=== PATIENT | female | born 1950 | race Two or more races ===

== ENCOUNTER 2017-03-18 12:37 | Inpatient (IN) | payer MEDICARE, OTHER ==
[~2017-03-18] VITALS: Ht 160 cm; Wt 52.2 kg
[2017-03-18 20:00] VITALS: BP 91/45
[2017-03-18] MEDS ORDERED: PROCRIT3000 UNIT/ SUBQ (20:23)
[2017-03-18] MEDS ORDERED: REMERON15 M1 ORAL (20:26)
[2017-03-18] MEDS ORDERED: SEROQUEL50 MG ORAL (20:28)
[2017-03-18] MEDS ORDERED: ACETAMINOPHEN325 M1 ORAL (20:34)
[2017-03-18] MEDS ORDERED: TIZANIDINE HCL4 MG ORAL (20:39)
[2017-03-18] MEDS ORDERED: AMBIEN5 MG ORAL (20:39)
[2017-03-18] MEDS ORDERED: ASPIR 8181 MG ORAL (20:40)
[2017-03-18] MEDS ORDERED: ATIVAN0.5 MG ORAL (20:42)
[2017-03-18] MEDS ORDERED: DOCUSATE SODIU100 MG ORAL (20:43)
[2017-03-18] MEDS ORDERED: BISACODYL10 M1 RC (20:45)
[2017-03-18] MEDS ORDERED: FERROUSUL325 M1 PO (20:47)
[2017-03-18] MEDS ORDERED: FLEET ENEMA133 M1 RC (20:50)
[2017-03-18] MEDS ORDERED: LIPITOR80 MG ORAL (20:51)
[2017-03-18] MEDS ORDERED: LYRICA25 MG ORAL (20:52)
[2017-03-18] MEDS ORDERED: MOM30 ML ORAL (20:55)
[2017-03-18] MEDS ORDERED: NUEDEXTA 20-101 EAC1 PO (20:58)
[2017-03-18] MEDS ORDERED: MELATONIN1 M2 PO (21:22)
[2017-03-18] MEDS ORDERED: HUMALOG100 UNIT/4 SUBQ (21:22)
[2017-03-18] MEDS ORDERED: LANTUS SOL100 UNIT/1 SUBQ (21:22)
[2017-03-18] MEDS ORDERED: Milk of Magnesia 30ml Ud ORAL PRN (21:30)
[2017-03-18] MEDS ORDERED: Zolpidem 5mg tab ORAL PRN (21:30)
[2017-03-18] MEDS ORDERED: Cefepime HCl 1 GM in D5W 55 ML IVPB SCH (21:30)
[2017-03-18] MEDS ORDERED: Cefepime 1gm/D5W 55ml IVPB ONE ×2 (23:00)
--- NOTE | 2017-03-18 23:09 | History and Physical Report ---
DATE OF ADMISSION: 03/18/2017 CHIEF COMPLAINT: Acute renal failure, sepsis, and UTI. HISTORY OF PRESENT ILLNESS: This is a 66-year-old female. She has a history of stroke with hemiparesis, hypertension, and history of dementia, who presented from the halfway facility with complaints of acute renal failure, sepsis, and urinary tract infection. The patient recently developed fevers. She had urinalysis that was positive for a urinary tract infection. She was started on antibiotic therapy. Laboratory tests done showed significant worsening of her renal function with metabolic acidosis. worsening renal failure, the sepsis, and urinary tract infection, she is now admitted for further evaluation and care. PAST MEDICAL HISTORY: As above. PAST SURGICAL HISTORY: None. CURRENT MEDICATIONS: Reconciled and reviewed. ALLERGIES: Include penicillin. FAMILY HISTORY: Noncontributory. SOCIAL HISTORY: Negative for tobacco, ethanol, or drugs. REVIEW OF SYSTEMS: General: Positive fevers. No chills. HEENT: No headaches or visual changes. Cardiopulmonary: No chest pain or shortness of breath. Gastrointestinal: No nausea or vomiting. Genitourinary: Positive urgency and frequency. Positive hematuria. Musculoskeletal: No joint pain or swelling. Neurologic: No evidence of seizures. PHYSICAL EXAMINATION: VITAL SIGNS: Temperature 99 degrees, blood pressure 140/76, pulse of 80, and respirations 20. GENERAL: The patient is a well-developed female, in no apparent distress. She is awake and alert. HEART: Regular rate and rhythm. NECK: Supple. LUNGS: Clear. ABDOMEN: Soft, nontender, and nondistended. EXTREMITIES: Without clubbing, cyanosis, or edema. LABORATORY DATA: Laboratory showed a creatinine of 3.8 with a bicarb of 12. UA showed greater than 50 to 100 WBCs. ASSESSMENT: This is an elderly female with history of stroke, hypertension, sepsis, urinary tract infection, and acute renal failure. PLAN: 1. IV hydration with bicarbonate. 2. IV antibiotics for urinary tract infection and sepsis. 3. Followup cultures. 4. Check a renal ultrasound. 5. Continue outpatient cardiac regimen. 6. Cardiology and Infectious Disease consultation will be obtained. Francis Jones M.D. DR: AMADA JOB#: [id number] CC:
[2017-03-19] VITALS: BP 121/63
[2017-03-19] MEDS: Sodium Bicarbonate 50 ML in 1/2 NS 1000ml 1,000 ML IV SCH ×3 (00:20→18:58)
[2017-03-19 04:00] VITALS: BP 119/64
[2017-03-19] MEDS: LORazepam 0.5mg tab ORAL SCH ×2 (05:11)
[2017-03-19] MEDS: NovoLOG Insulin Flexpen SUBQ SCH ×4 (06:31→20:13)
[2017-03-19 08:00] VITALS: BP 94/63
[2017-03-19] MEDS: Docusate 100mg cap ORAL SCH ×2 (09:00→17:00)
[2017-03-19] MEDS: Nuedexta Capsule 20/10mg ORAL SCH ×2 (09:03→20:11)
[2017-03-19] MEDS: Lyrica 25mg cap ORAL SCH ×3 (09:03→17:03)
[2017-03-19] MEDS: Aspirin EC 81mg tab ORAL SCH (09:03)
[2017-03-19 09:59] LABS: BASOPHILS % (AUTO) 1.1 % (0.0-2.0); EOSINOPHILS % (AUTO) 2.6 % (0.0-3.0); LYMPHOCYTES % (AUTO) 27.3 % (20.0-45.0); MEAN CORPUSCULAR HEMOGLOBIN 21.8 PG (27.0-31.0); MEAN CORPUSCULAR VOLUME 73 FL (80-99); MEAN PLATELET VOLUME 6.7 FL (6.5-10.1); MONOCYTES % (AUTO) 14.1 % (1.0-10.0); NEUTROPHILS % (AUTO) 54.9 % (45.0-75.0); PLATELET COUNT 343 K/UL (150-450); RED BLOOD COUNT 5.55 M/UL (4.20-5.40); RED CELL DISTRIBUTION WIDTH 22.1 % (11.6-14.8); WHITE BLOOD COUNT 8.8 K/UL (4.8-10.8)
[2017-03-19 10:18] LABS: ALBUMIN/GLOBULIN RATIO 0.7 (1.0-2.7); CREATININE 2.8 mg/dL (0.5-0.9); GLOMERULAR FILTRATION RATE 16.9 mL/min (>60); POTASSIUM 4.6 mEQ/L (3.4-4.9); TOTAL PROTEIN 7.6 g/dL (6.6-8.7)
[2017-03-19 12:00] VITALS: BP 130/63
[2017-03-19] MEDS: LORazepam 0.5mg tab ORAL PRN ×2 (12:30→19:08)
--- NOTE | 2017-03-19 14:06 | Diagnostic Imaging Report ---
Indication:Elevated Bun and Creatinine. Technique: Grayscale and duplex Doppler imaging of the kidneys performed. Comparison: None Findings: There is mild bilateral hydronephrosis slightly worse on the right. There is thickening of the urinary bladder wall. Please correlate clinically for cystitis. Both kidneys measure between 10 and 11 cm in length. IVC is unremarkable. Impression: Bilateral hydronephrosis. Thickening of the urinary bladder wall. Cystitis suspected.
--- NOTE | 2017-03-19 14:40 | Wound Care Consultation ---
Wound Assessment Wound Assessment #1: Wound Present on Admission: Yes New Wound: No Status Change of Wound: No Wound Location Body Site Modif: right Wound Location Body Site: sacral Wound Type: pressure ulcer Michelle Test: Does not Michelle Pressure Ulcer Stage: III Wound Thickness: Full Thickness Wound Length: 2.0 Wound Width: 1.5 Wound Depth: utd Percent of Wound [place]/Red: 100 Wound Drainage Description: Serosanguineous Wound Drainage Amount: Scant Wound Drainage Odor: None/Absent Tissue Surrounding Wound: with extensive L 6.5cm, W 10.5cm DTI purple in color Wound General Appearance: Reddened Wound Assessment #2: Wound Number: #2 Wound Present on Admission: Yes New Wound: No Status Change of Wound: No Wound Location Body Site Modif: left Wound Location Body Site: buttocks Wound Type: pressure ulcer Michelle Test: Does not Michelle Pressure Ulcer Stage: III Wound Thickness: Full Thickness Wound Length: 5.5 Wound Width: 4.0 Wound Depth: 0.3 Percent of Wound [place]/Red: 100 Wound Drainage Description: Serosanguineous Wound Drainage Amount: Scant Wound Drainage Odor: None/Absent Tissue Surrounding Wound: Macerated Wound General Appearance: Reddened Wound Assessment #3: Wound Number: #3 Wound Present on Admission: Yes New Wound: No Status Change of Wound: No Wound Location Body Site Modif: right Wound Location Body Site: buttocks Wound Type: pressure ulcer Michelle Test: Does not Michelle Pressure Ulcer Stage: deep tissue injury Wound Thickness: Full Thickness Wound Length: 4.0 Wound Width: 4.5 Wound Depth: utd Percent of Wound Purple/Maroon: 100 Wound Drainage Amount: None Wound Drainage Odor: None/Absent Tissue Surrounding Wound: Erythemic Wound General Appearance: Reddened Wound Assessment #4: Wound Number: #4 Wound Present on Admission: Yes New Wound: No Status Change of Wound: No Wound Location Body Site Modif: mid Wound Location Body Site: sacral Wound Type: pressure ulcer Michelle Test: Does not Michelle Pressure Ulcer Stage: deep tissue injury Wound Thickness: Full Thickness Wound Length: 4.0 Wound Width: 4.5 Wound Depth: utd Percent of Wound Purple/Maroon: 100 Wound Drainage Amount: None Wound Drainage Odor: None/Absent Tissue Surrounding Wound: Erythemic Wound General Appearance: Reddened Wound Assessment #5: Wound Number: #5 Wound Present on Admission: Yes New Wound: No Status Change of Wound: No Wound Location Body Site: perineal area Wound Type: chemical burn Michelle Test: Does not Michelle Percent of Wound [place]/Red: 100 Wound Drainage Amount: None Wound Drainage Odor: None/Absent Tissue Surrounding Wound: Erythemic Wound General Appearance: Reddened Wound Comment #1 Right sacral stage III pressure ulcer #2 Mid sacral DTI pressure ulcer #3 Left buttock stage III pressure ulcer #4 Right buttock DTI pressure ulcer #5 Chemical burn to perineal area Recommendation -Mid Sacral and left buttock pressure ulcers Cleanse with saline, pat dry, apply Triad cream to wound bed, apply skin barrier film to periwound with extensive DTI, cover with bordered gauze daily and PRN soiled/ dislodged -Local wound care per protocol for DTI on mid sacral area -Keep clean and dry -Turn and reposition -Optimize nutrition -Low air loss overlay mattress -Offload both heels -Heel protector on both heels -Assess and f/u accordingly for any changes MINNIE MILLER RN March 19, 2017 14:40
[2017-03-19 16:00] VITALS: BP 127/70
[2017-03-19 20:00] VITALS: BP 133/69
[2017-03-19] MEDS: Atorvastatin 80mg tab ORAL SCH (20:11)
[2017-03-19] MEDS: Cefepime 500mg in D5W 55ml IVPB SCH (23:18)
[2017-03-20] VITALS: BP 147/72
[2017-03-20] MEDS: LORazepam 0.5mg tab ORAL PRN ×3 (02:20→17:28)
[2017-03-20 04:00] VITALS: BP 125/54
[2017-03-20] MEDS: NovoLOG Insulin Flexpen SUBQ SCH ×4 (06:51→22:58)
[2017-03-20] MEDS: Sodium Bicarbonate 50 ML in 1/2 NS 1000ml 1,000 ML IV SCH ×2 (06:51→16:52)
[2017-03-20 07:54] LABS: ALANINE AMINOTRANSFERASE 24 U/L (3-33); ALBUMIN/GLOBULIN RATIO 0.5 (1.0-2.7); ANION GAP 17 (5-15); ASPARTATE AMINO TRANSFERASE 43 U/L (5-40); CALCIUM 8.5 mg/dL (8.6-10.2); CARBON DIOXIDE 24 mEQ/L (20-30); CHLORIDE 97 mEQ/L (98-107); CREATININE 1.6 mg/dL (0.5-0.9); GLOMERULAR FILTRATION RATE 32.3 mL/min (>60); HEMOLYSIS 6; POTASSIUM 3.6 mEQ/L (3.4-4.9); SODIUM 138 mEQ/L (135-145); TOTAL PROTEIN 8.3 g/dL (6.6-8.7)
[2017-03-20 07:55] VITALS: BP 144/72
--- NOTE | 2017-03-20 08:23 | General Progress Note ---
Assessment/Plan Problem List: (1) Sepsis ICD Codes: A41.9 - Sepsis, unspecified organism SNOMED: 75556175 (2) ARF (acute renal failure) ICD Codes: N17.9 - Acute kidney failure, unspecified SNOMED: 44627040 Status: stable, progressing Assessment/Plan ivf iv abx will follow cultures from [facility] monitor renal function Subjective Date patient seen: March 19, 2017 ROS Limited/Unobtainable: No Constitutional: Reports: malaise, weakness HEENT: Reports: no symptoms Cardiovascular: Reports: no symptoms Respiratory: Reports: cough Gastrointestinal/Abdominal: Reports: no symptoms Genitourinary: Reports: burning, frequency, hematuria Neurologic/Psychiatric: Reports: pre-existing deficit Endocrine: Reports: no symptoms Hematologic/Lymphatic: Reports: no symptoms Allergies: Coded Allergies: PENICILLINS (Verified Allergy, Unknown, 03/18/17) All Systems: reviewed and negative except above Subjective no events. w/o complaints. no cp/sob. no fever or chills. on ivf. on iv abx. Objective Last 24 Hour Vital Signs Date Time Temp Pulse Resp B/P Pulse Ox O2 Delivery O2 Flow Rate FiO2 03/20/17 07:55 97.0 109 20 144/72 99 Room Air 03/20/17 04:00 97.0 95 19 125/54 100 Room Air 03/20/17 00:00 96.1 114 18 147/72 99 Room Air 03/19/17 21:14 97.3 03/19/17 20:00 96.6 82 17 133/69 97 Room Air 03/19/17 16:00 97.3 68 20 127/70 97 Room Air 03/19/17 12:00 97.2 83 20 130/63 100 Room Air Intake and Output 03/19/17 03/20/17 19:00 07:00 Intake Total 200 ml 1300 ml Balance 200 ml 1300 ml Intake Oral 200 ml 120 ml IV Total 1180 ml # Voids 4 2 # Bowel Movements 1 Laboratory Tests 03/19/17 09:15: White Blood Count 8.8, Red Blood Count 5.55H, Hemoglobin 12.1, Hematocrit 40.4, Mean Corpuscular Volume 73L, Mean Corpuscular Hemoglobin 21.8L, Mean Corpuscular Hemoglobin Concent 30.0L, Red Cell Distribution Width 22.1H, Platelet Count 343, Mean Platelet Volume 6.7, Neutrophils (%) (Auto) 54.9, Lymphocytes (%) (Auto) 27.3, Monocytes (%) (Auto) 14.1H, Eosinophils (%) (Auto) 2.6, Basophils (%) (Auto) 1.1, Sodium Level 131L, Potassium Level 4.6, Chloride Level 92L, Carbon Dioxide Level 18L, Anion Gap 21H, Blood Urea Nitrogen 71H, Creatinine 2.8H, Estimat Glomerular Filtration Rate 16.9, Glucose Level 210H, Calcium Level 8.0L, Total Bilirubin 0.2, Aspartate Amino Transf (AST/SGOT) 40, Alanine Aminotransferase (ALT/SGPT) 19, Alkaline Phosphatase 93, Total Protein 7.6, Albumin 3.2L, Globulin 4.4, Albumin/Globulin Ratio 0.7L 03/20/17 05:15: Sodium Level 138, Potassium Level 3.6, Chloride Level 97L, Carbon Dioxide Level 24, Anion Gap 17H, Blood Urea Nitrogen 55H, Creatinine 1.6H, Estimat Glomerular Filtration Rate 32.3, Glucose Level 268H, Calcium Level 8.5L, Total Bilirubin < 0.2, Aspartate Amino Transf (AST/SGOT) 43H, Alanine Aminotransferase (ALT/SGPT) 24, Alkaline Phosphatase 124H, Total Protein 8.3, Albumin 3.0L, Globulin 5.3, Albumin/Globulin Ratio 0.5L Height (Feet): 5 Height (Inches): 3.00 Weight (Pounds): 115 General Appearance: WD/WN, alert Neck: supple Cardiovascular: regular rhythm Respiratory/Chest: lungs clear, normal breath sounds, no respiratory distress Abdomen: normal bowel sounds, non tender, soft, no organomegaly Neurologic: alert, oriented x 3, responsive, motor weakness KORTNEY DODGE March 20, 2017 08:22
--- NOTE | 2017-03-20 08:25 | General Progress Note ---
Assessment/Plan Problem List: (1) Sepsis ICD Codes: A41.9 - Sepsis, unspecified organism SNOMED: 78928230 (2) ARF (acute renal failure) ICD Codes: N17.9 - Acute kidney failure, unspecified SNOMED: 10929367 Status: stable, progressing Assessment/Plan ivf iv abx will follow cultures from [facility] renal luann with mild hydro. ?significance. monitor renal function- currently improving anticipate dc tomorrow if labs ok Subjective ROS Limited/Unobtainable: No Constitutional: Reports: malaise, weakness HEENT: Reports: no symptoms Cardiovascular: Reports: no symptoms Respiratory: Reports: no symptoms Gastrointestinal/Abdominal: Reports: no symptoms Genitourinary: Reports: burning, frequency, hematuria Neurologic/Psychiatric: Reports: pre-existing deficit Endocrine: Reports: no symptoms Hematologic/Lymphatic: Reports: no symptoms Allergies: Coded Allergies: PENICILLINS (Verified Allergy, Unknown, 03/18/17) All Systems: reviewed and negative except above Subjective no events. w/o complaints. no cp/sob. no fever or chills. on ivf. on iv abx. renal fxn improving. Objective Last 24 Hour Vital Signs Date Time Temp Pulse Resp B/P Pulse Ox O2 Delivery O2 Flow Rate FiO2 03/20/17 07:55 97.0 109 20 144/72 99 Room Air 03/20/17 04:00 97.0 95 19 125/54 100 Room Air 03/20/17 00:00 96.1 114 18 147/72 99 Room Air 03/19/17 21:14 97.3 03/19/17 20:00 96.6 82 17 133/69 97 Room Air 03/19/17 16:00 97.3 68 20 127/70 97 Room Air 03/19/17 12:00 97.2 83 20 130/63 100 Room Air Intake and Output 03/19/17 03/20/17 19:00 07:00 Intake Total 200 ml 1300 ml Balance 200 ml 1300 ml Intake Oral 200 ml 120 ml IV Total 1180 ml # Voids 4 2 # Bowel Movements 1 Laboratory Tests 03/19/17 09:15: White Blood Count 8.8, Red Blood Count 5.55H, Hemoglobin 12.1, Hematocrit 40.4, Mean Corpuscular Volume 73L, Mean Corpuscular Hemoglobin 21.8L, Mean Corpuscular Hemoglobin Concent 30.0L, Red Cell Distribution Width 22.1H, Platelet Count 343, Mean Platelet Volume 6.7, Neutrophils (%) (Auto) 54.9, Lymphocytes (%) (Auto) 27.3, Monocytes (%) (Auto) 14.1H, Eosinophils (%) (Auto) 2.6, Basophils (%) (Auto) 1.1, Sodium Level 131L, Potassium Level 4.6, Chloride Level 92L, Carbon Dioxide Level 18L, Anion Gap 21H, Blood Urea Nitrogen 71H, Creatinine 2.8H, Estimat Glomerular Filtration Rate 16.9, Glucose Level 210H, Calcium Level 8.0L, Total Bilirubin 0.2, Aspartate Amino Transf (AST/SGOT) 40, Alanine Aminotransferase (ALT/SGPT) 19, Alkaline Phosphatase 93, Total Protein 7.6, Albumin 3.2L, Globulin 4.4, Albumin/Globulin Ratio 0.7L 03/20/17 05:15: Sodium Level 138, Potassium Level 3.6, Chloride Level 97L, Carbon Dioxide Level 24, Anion Gap 17H, Blood Urea Nitrogen 55H, Creatinine 1.6H, Estimat Glomerular Filtration Rate 32.3, Glucose Level 268H, Calcium Level 8.5L, Total Bilirubin < 0.2, Aspartate Amino Transf (AST/SGOT) 43H, Alanine Aminotransferase (ALT/SGPT) 24, Alkaline Phosphatase 124H, Total Protein 8.3, Albumin 3.0L, Globulin 5.3, Albumin/Globulin Ratio 0.5L Height (Feet): 5 Height (Inches): 3.00 Weight (Pounds): 115 General Appearance: WD/WN, alert Neck: supple Cardiovascular: regular rhythm Respiratory/Chest: lungs clear, normal breath sounds, no respiratory distress Abdomen: normal bowel sounds, non tender, soft, no organomegaly Edema: no edema noted Arm (L), no edema noted Arm (R), no edema noted Leg (L), no edema noted Leg (R), no edema noted Pedal (L), no edema noted Pedal (R), no edema noted 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
[2017-03-20] MEDS: Nuedexta Capsule 20/10mg ORAL SCH ×3 (09:17→22:57)
[2017-03-20] MEDS: Docusate 100mg cap ORAL SCH ×2 (09:17→17:28)
[2017-03-20] MEDS: Aspirin EC 81mg tab ORAL SCH (09:17)
[2017-03-20] MEDS: Lyrica 25mg cap ORAL SCH ×3 (09:22→17:29)
[2017-03-20 11:20] VITALS: BP 141/78
[2017-03-20 16:17] VITALS: BP 104/56
[2017-03-20] MEDS: Norco 10mg/325mg tab ORAL PRN (17:28)
--- NOTE | 2017-03-20 17:56 | Physician Query ---
PLEASE COMPLETE DOCUMENT BEFORE SIGNING Dear Dr. Schumacher Date: _03/20/2017 [facility] Name: _Tavia Shetty M.D._ [facility] Phone No.: _[phone] _ Exercise your independent professional judgment when responding to the query. Questions asked do not imply a particular answer is desired or expected. We greatly appreciate your clarification on this issue. CLINICAL DOCUMENTATION STATES: "Right sacral stage III pressure ulcer" & "Left buttock stage III pressure ulcer "Verdana 4Br as per Wound Consultation Note by MINNIE MILLER RN Please respond to the following question: Is there a diagnosis specific to these symptoms or values? If so please state below. PHYSICIAN RESPONSE: Condition Present on Admission: [x] Yes [] No []Clinically Undeterminable Please also document in your Progress Notes and/or Discharge Summary and indicate if the condition was present on admission. Francis Jones M.D. Date & Time [facility]
[2017-03-20] MEDS: Atorvastatin 80mg tab ORAL SCH ×2 (21:00→22:55)
[2017-03-21] VITALS: BP 148/76
[2017-03-21] MEDS: Cefepime 500mg in D5W 55ml IVPB SCH (00:16)
[2017-03-21] MEDS: Sodium Bicarbonate 50 ML in 1/2 NS 1000ml 1,000 ML IV SCH ×2 (03:00→13:38)
[2017-03-21 04:00] VITALS: BP 139/72
[2017-03-21] MEDS: Norco 10mg/325mg tab ORAL PRN ×2 (04:09→14:15)
[2017-03-21] MEDS: NovoLOG Insulin Flexpen SUBQ SCH ×2 (06:28→13:40)
[2017-03-21 08:15] VITALS: BP 129/63
[2017-03-21] MEDS: Docusate 100mg cap ORAL SCH (09:00)
[2017-03-21] MEDS: Nuedexta Capsule 20/10mg ORAL SCH (09:00)
[2017-03-21] MEDS: Lyrica 25mg cap ORAL SCH ×2 (09:00→13:00)
[2017-03-21 09:12] LABS: ALANINE AMINOTRANSFERASE 15 U/L (3-33); ALBUMIN/GLOBULIN RATIO 0.5 (1.0-2.7); ANION GAP 14 (5-15); ASPARTATE AMINO TRANSFERASE 21 U/L (5-40); CALCIUM 8.1 mg/dL (8.6-10.2); CARBON DIOXIDE 27 mEQ/L (20-30); CHLORIDE 100 mEQ/L (98-107); CREATININE 1.2 mg/dL (0.5-0.9); HEMOLYSIS 0; POTASSIUM 3.9 mEQ/L (3.4-4.9); SODIUM 141 mEQ/L (135-145); TOTAL PROTEIN 7.1 g/dL (6.6-8.7)
[2017-03-21] MEDS: Aspirin EC 81mg tab ORAL SCH (09:23)
[2017-03-21 11:54] VITALS: BP 118/73
[2017-03-21] MEDS: LORazepam 0.5mg tab ORAL PRN (14:14)
[2017-03-21 15:56] VITALS: BP 109/57
[2017-03-21] MEDS ORDERED: Tubing IV Secondary IV ONE (18:10)
--- NOTE | 2017-03-22 03:39 | Discharge Summary ---
DATE OF ADMISSION: 03/18/2017 DATE OF DISCHARGE: 03/21/2017 ADMISSION DIAGNOSES: 1. Sepsis. 2. Acute renal failure. 3. Encephalopathy. 4. Stroke. 5. Diabetes. 6. Hypertension. DISCHARGE DIAGNOSES: 1. Sepsis. 2. Acute renal failure. 3. Encephalopathy. 4. Stroke. 5. Diabetes. 6. Hypertension. HOSPITAL COURSE: The patient is a pleasant female with complaints of sepsis secondary to urinary tract infection. She was noted to be in acute renal failure with creatinine of 3.8. The patient was hydrated aggressively. She had a renal ultrasound showed mild hydronephrosis. Schroeder catheter was recommended, but the patient refused. renal function continued to improve with IV fluids. The patient's sepsis also improved with IV antibiotics. On discharge, she was well. She will be discharged back to the senior living facility to complete antibiotics. DISCHARGE MEDICATIONS: Please see discharge medication list for discharge medications. DIET: Cardiac and diabetic diet. ACTIVITY: Ad-jaylene. FOLLOWUP: The patient is to follow up in one to two days at the senior living facility. Francis Jones M.D. DR: EIRC JOB#: [id number] CC:
== END 2017-03-21 18:11 | DRG 871 ==
LOC: 4E 19:24
DX: A41.9 Sepsis, unspecified organism (principal); L89.303 Pressure ulcer of unspecified buttock, stage 3; N17.9 Acute kidney failure, unspecified; G93.40 Encephalopathy, unspecified; L89.153 Pressure ulcer of sacral region, stage 3; I69.359 Hemiplegia and hemiparesis following cerebral infarction affecting unspecified side; N39.0 Urinary tract infection, site not specified; N13.30 Unspecified hydronephrosis; F03.90 Unspecified dementia, unspecified severity, without behavioral disturbance, psychotic disturbance, mood disturbance, and anxiety; I10 Essential (primary) hypertension; E11.9 Type 2 diabetes mellitus without complications
CPT/HCPCS: 36415; 76775; 80053; 82962; 85025; 87070; 87081; 87181; 87205; 87324; J1815

== ENCOUNTER 2017-04-27 11:35 | Inpatient (IN) | payer MEDICARE, OTHER ==
[~2017-04-27] VITALS: Ht 160 cm; Wt 68.2 kg
[2017-04-27] VITALS (14 sets, daily range): BP systolic 82–157; BP diastolic 38–75
[~2017-04-27 11:35] MED LIST: ACETAMINOPHEN325 M1 ORAL; AMBIEN5 MG ORAL; ASPIR 8181 MG ORAL; ATIVAN0.5 MG ORAL; BISACODYL10 M1 RC; DOCUSATE SODIU100 MG ORAL; FERROUSUL325 M1 PO; FLEET ENEMA133 M1 RC; HUMALOG100 UNIT/4 SUBQ; LANTUS SOL100 UNIT/1 SUBQ; LIPITOR80 MG ORAL; LYRICA25 MG ORAL; MELATONIN1 M2 PO; MOM30 ML ORAL; NUEDEXTA 20-101 EAC1 PO; PROCRIT3000 UNIT/ SUBQ; REMERON15 M1 ORAL; SEROQUEL50 MG ORAL; TIZANIDINE HCL4 MG ORAL
[2017-04-27] MEDS ORDERED: LORazepam Inj 2mg/ml 1ml ONE (11:53)
[2017-04-27] MEDS ORDERED: LORazepam Inj 2mg/ml 1ml IV ONE (12:00)
[2017-04-27] MEDS ORDERED: Acetaminophen 650 MG SUPP RECTAL ONE ×2 (12:58→13:00)
[2017-04-27 13:35] LABS: APPEARANCE,URINE CLOUDY; KETONES,URINE NEGATIVE (NEGATIVE); LEUKOCYTE ESTERASE ,URINE 3+ (NEGATIVE); NITRITE,URINE NEGATIVE (NEGATIVE); PH,URINE 6 (4.5-8.0); PROTEIN,URINE 3+ (NEGATIVE); UROBILINOGEN,URINE NORMAL MG/DL (0.0-1.0)
[2017-04-27 13:36] LABS: MEAN CORPUSCULAR HEMOGLOBIN 24.1 PG (27.0-31.0); MEAN CORPUSCULAR HGB CONC 30.8 G/DL (32.0-36.0); MEAN CORPUSCULAR VOLUME 78 FL (80-99); MEAN PLATELET VOLUME 6.4 FL (6.5-10.1); PLATELET COUNT 187 K/UL (150-450); RED BLOOD COUNT 4.38 M/UL (4.20-5.40); RED CELL DISTRIBUTION WIDTH 21.6 % (11.6-14.8); WHITE BLOOD COUNT 18.9 K/UL (4.8-10.8)
[2017-04-27 13:44] LABS: PROTHROMBIN TIME 10.9 SEC (9.30-11.50)
[2017-04-27 13:47] LABS: BACTERIA,URINE MODERATE /HPF; SQUAMOUS EPITHELIAL CELL,UR FEW /LPF (NONE/OCC); WBC,URINE TNTC /HPF (0 - 2)
[2017-04-27 13:49] LABS: ALBUMIN/GLOBULIN RATIO 0.5 (1.0-2.7); CALCIUM 8.2 mg/dL (8.6-10.2); CHOLESTEROL/HDL RATIO 8.4 (3.3-4.4); CREATININE 4.2 mg/dL (0.5-0.9); GLOMERULAR FILTRATION RATE 10.5 mL/min (>60); TOTAL PROTEIN 7.5 g/dL (6.6-8.7)
[2017-04-27 13:50] LABS: POTASSIUM 4.3 mEQ/L (3.4-4.9)
[2017-04-27 13:51] LABS: REFLEX LACTIC ACID YES OR NO YES
[2017-04-27 13:52] LABS: TROPONIN I 0.46 ng/mL (<=0.30)
[2017-04-27 14:00] LABS: CKMB 10.4 ng/mL (< 3.8)
[2017-04-27 14:10] LABS: ANISOCYTOSIS 2+; BAND NEUTROPHILS % (MANUAL) 4 % (0-8); BASOPHILS % (MANUAL) 0 % (0-2); EOSINOPHILS % (MANUAL) 0 % (0-3); HYPOCHROMASIA 1+; LYMPHOCYTES % (MANUAL) 6 % (20-45); MICROCYTES 1+; NEUTROPHILS % (MANUAL) 87 % (45-75); PLATELET ESTIMATE ADEQUATE; PLATELET MORPHOLOGY NORMAL; TOTAL CELLS COUNTED 100
--- NOTE | 2017-04-27 14:46 | Diagnostic Imaging Report ---
Indications: Altered level of consciousness-code stroke Technique: Continuous helical CT imaging of the brain was performed with nonionic exposure control on a Siemens sensation [address] scanner. Axial and coronal images were reconstructed at 5 mm slice thickness and interval. CTDI volume(s): 70 mGy Total DLP: 1383 mGy-cm Findings: Comparison: None Prominent wedge-shaped, peripherally based area of low attenuation/parenchymal loss is present in middle cerebral artery territory of the right cerebellar hemisphere. There is associated ex vacuo dilation of the underlying right lateral ventricle. Mild low attenuation is present in the bilateral periventricular white matter. Ventricles, cisterns, and sulci are diffusely prominent. Low attenuation fluid collections are present in the extra-axial spaces over both frontal convexities. These measure 18 mm on the right and 12 mm on the left. Associated mild mass effect. No evidence of mass or acute hemorrhage, midline shift, hydrocephalus, or increased intracranial pressure. Bone window images are unremarkable. Visualized paranasal sinuses and mastoid air cells are clear. IMPRESSION: No evidence of acute intracranial pathology . Early/subtle acute abnormalities may be missed, however. If clinically indicated, MRI of the brain without and with gadolinium may be of benefit in further evaluation. 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 Valdivia, physician, by telephone at time of this dictation The CT scanner at [facility] is accredited by the [employer] and the scans are performed using protocols designed to limit radiation exposure to as low as reasonably achievable to attain images of sufficient resolution adequate for diagnostic evaluation.
--- NOTE | 2017-04-27 15:04 | Diagnostic Imaging Report ---
Indication: Shortness of breath Technique: Single portable AP view of the chest. Findings: Comparison: None. The bones and extra pulmonary soft tissues, cardiomediastinal silhouette, pulmonary vasculature and parenchyma, and pleural surfaces are unremarkable. IMPRESSION: Negative portable AP chest.
--- NOTE | 2017-04-27 15:57 | Emergency Room Report ---
History of Present Illness General Chief Complaint: Stroke Symptoms Source: Medical Record, EMS Present Illness HPI 67-year-old female presents to ED for evaluation. Per EMS patient noted to be altered for the last 40 minutes at the [facility]. Patient was well this morning. Blood pressure is low. Upon arrival patient unable to provide any additional history at this time. No reported chest pain or shortness of breath. No nausea or vomiting. No identified focal deficits. No other aggravating or relieving factors. No other associated symptoms Allergies: Coded Allergies: PENICILLINS (Verified Allergy, Unknown, 03/18/17) Patient History Past Medical History: DM, HTN, CVA/TIA Past Surgical History: none Pertinent Family History: none Social History: Denies: alcohol use, drug use, smoking Last Menstrual Period: na Now: No Immunizations: UTD Reviewed Nursing Documentation: PMH: Agreed, PSxH: Agreed Nursing Documentation-PMH Past Medical History: No History, Except For Hx Cardiac Problems: Yes Hx Hypertension: Yes Hx Diabetes: Yes Hx Cancer: No Hx Gastrointestinal Problems: No Hx Neurological Problems: Yes - left sided deficits Hx Cerebrovascular Accident: Yes Hx Amyotrophic Lat Sclerosis: Yes Hx Memory Loss: Yes Hx Weakness: Yes Hx Fatigue: Yes Review of Systems All Other Systems: limited Physical Exam Vital Signs Date Time Temp Pulse Resp B/P Pulse Ox O2 Delivery O2 Flow Rate FiO2 04/27/17 11:27 128 18 80/46 98 Room Air Sp02 EP Interpretation: reviewed, normal General Appearance: lethargic Head: normocephalic Eyes: bilateral eye PERRL, bilateral eye normal inspection ENT: normal ENT inspection Neck: normal inspection Respiratory: chest non-tender, lungs clear, normal breath sounds, speaking full sentences Cardiovascular #1: regular rate, rhythm, no edema Gastrointestinal: normal bowel sounds, non tender, soft, non-distended, no guarding, no rebound Rectal: deferred Genitourinary: no CVA tenderness Musculoskeletal: normal inspection Neurologic: other - aloc Psychiatric: other - aloc Skin: normal inspection Lymphatic: normal inspection Procedures Critical Care Time Critical Care Time i. I feel this is a highly complex case requiring extensive working including EKG/Rhythm strip, Xray/CT/US, Blood/urine lab work, repeat exams while in ED, and administration of strong opiates/narcotics for pain control, admission to hospital or close patient follow up. Total time: 30 min bedside evaluation and treatment excludes procedures (EKG). Reason for critical care: Altered, septic shock, elevated troponin, hypotensive Possible complications: hypotension, hypertension, [place], shock, arrhythmias, metabolic acidosis, end organ damage, respiratory failure. Interventions: Labs, EKG, chest x-ray, IV fluids, CT head. Rectal aspirin. Antibiotics. Central line. Pressors Course: Patient brought in for altered mental status. History of CVA. CT head negative. Patient has rectal temperature. UA grossly positive. Lactate greater than 5, BUN/creatinine markedly elevated. Troponins elevated. EKG shows no acute ischemic changes. Patient given rectal aspirin. Given antibiotics. Despite multiple fluid boluses patient remains hypotensive. Central line placed. Pressors started Consultations: nursing staff, EMS, family Performed by: Dr Valdivia Tolerated well condition = critical j. because of unstable vital signs this patient had a condition that could potentially threaten life or limb. I feel this is a critical patient who required my full attention while patient was considered critical. Total Critical Care Time excluding procedures was greater than 35 minutes Central Line Central Line : Consent: Verbal Central Line Lumen: triple Maximal Sterile Barrier Tech: yes cap, yes mask, yes sterile gown, yes sterile gloves, yes large sterile sheet, yes hand hygiene, yes chlorhexidine prep Central Line Postion: femoral (R) Anesthesia: Lidocaine Complications: none Central Line Post Position: sutured, good blood return Attempts: One Patient Tolerated: Well Complications: None Medical Decision Making Diagnostic Impression: Primary Impression: Septic shock Additional Impressions: UTI (urinary tract infection) Qualified Codes: N39.0 - Urinary tract infection, site not specified Altered level of consciousness ARF (acute renal failure) Qualified Codes: N17.9 - Acute kidney failure, unspecified Elevated troponin ER Course Hospital Course 67-year-old female presents with altered mental status since this morning Differential diagnoses include: Pneumonia, UTI, sepsis, dehydration, [place]/ unstable angina, CVA Clinical course Patient placed on stretcher. 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 After initial history and physical, I ordered labs, IV fluids, EKG, chest x-ray, blood cultures, UA. CT head Labs - BUN/Cr markedly elevated, noted leukocytosis, troponins 0.46, UA grossly positive for UTI, lactate > 5 patient febrile - given rectal tylenol CXR - no acute process CT head unremarkable EKG - nsr, no acute changes interprreted by me Abx given. Rectal aspirin given. Given multiple IV fluid boluses but blood pressure remains low Central line placed. Pressors started Case discussed with Dr Dodge and they agreed to admit patient to their service for further care and support I feel this is a highly complex case requiring extensive working including EKG/ Rhythm strip, Xray/CT/US, Blood/urine lab work, repeat exams while in ED, and administration of strong opiates/narcotics for pain control, admission to hospital or close patient follow up. Diagnosis - septic shock, UTI, ALOC, ARF, elevated troponin Patient admitted to ICU in critical condition Labs Test 04/27/17 12:00 04/27/17 13:00 White Blood Count 18.9 K/UL (4.8-10.8) Red Blood Count 4.38 M/UL (4.20-5.40) Hemoglobin 10.6 G/DL (12.0-16.0) Hematocrit 34.3 % (37.0-47.0) Mean Corpuscular Volume 78 FL (80-99) Mean Corpuscular Hemoglobin 24.1 PG (27.0-31.0) Mean Corpuscular Hemoglobin Concent 30.8 G/DL (32.0-36.0) Red Cell Distribution Width 21.6 % (11.6-14.8) Platelet Count 187 K/UL (150-450) Mean Platelet Volume 6.4 FL (6.5-10.1) Neutrophils (%) (Auto) % (45.0-75.0) Lymphocytes (%) (Auto) % (20.0-45.0) Monocytes (%) (Auto) % (1.0-10.0) Eosinophils (%) (Auto) % (0.0-3.0) Basophils (%) (Auto) % (0.0-2.0) Differential Total Cells Counted 100 Neutrophils % (Manual) 87 % (45-75) Lymphocytes % (Manual) 6 % (20-45) Monocytes % (Manual) 3 % (1-10) Eosinophils % (Manual) 0 % (0-3) Basophils % (Manual) 0 % (0-2) Band Neutrophils 4 % (0-8) Platelet Estimate Adequate Platelet Morphology Normal Hypochromasia 1+ Anisocytosis 2+ Microcytosis 1+ Prothrombin Time 10.9 SEC (9.30-11.50) Prothromb Time International Ratio 1.0 (0.9-1.1) Activated Partial Thromboplast Time 30 SEC (23-33) Sodium Level 134 mEQ/L (135-145) Potassium Level 4.3 mEQ/L (3.4-4.9) Chloride Level 96 mEQ/L (98-107) Carbon Dioxide Level 13 mEQ/L (20-30) Anion Gap 25 (5-15) Blood Urea Nitrogen 59 mg/dL (7-23) Creatinine 4.2 mg/dL (0.5-0.9) Estimat Glomerular Filtration Rate 10.5 mL/min (>60) Glucose Level 240 mg/dL (74-106) Lactic Acid Level 5.20 mmol/L (0.66-2.22) Calcium Level 8.2 mg/dL (8.6-10.2) Total Bilirubin 0.7 mg/dL (0.0-1.2) Aspartate Amino Transf (AST/SGOT) 52 U/L (5-40) Alanine Aminotransferase (ALT/SGPT) 16 U/L (3-33) Alkaline Phosphatase 131 U/L (35-104) Total Creatine Kinase 3880 U/L (26-140) Creatine Kinase MB 10.4 ng/mL (< 3.8) Creatine Kinase MB Relative Index 0.2 Troponin I 0.46 ng/mL (<=0.30) Total Protein 7.5 g/dL (6.6-8.7) Albumin 2.5 g/dL (3.5-5.2) Globulin 5.0 g/dL Albumin/Globulin Ratio 0.5 (1.0-2.7) Triglycerides Level 213 mg/dL (< 150) Cholesterol Level 84 mg/dL (< 200) LDL Cholesterol 31 mg/dL (60-99) HDL Cholesterol 10 mg/dL (> 60) Cholesterol/HDL Ratio 8.4 (3.3-4.4) Urine Color Yellow Urine Appearance Cloudy Urine pH 6 (4.5-8.0) Urine Specific [place] 1.015 (1.005-1.035) Urine Protein 3+ (NEGATIVE) Urine Glucose (UA) Negative (NEGATIVE) Urine Ketones Negative (NEGATIVE) Urine Occult Blood 5+ (NEGATIVE) Urine Nitrite Negative (NEGATIVE) Urine Bilirubin Negative (NEGATIVE) Urine Urobilinogen Normal MG/DL (0.0-1.0) Urine Leukocyte Esterase 3+ (NEGATIVE) Urine RBC 5-10 /HPF (0 - 2) Urine WBC Tntc /HPF (0 - 2) Urine Squamous Epithelial Cells Few /LPF (NONE/OCC) Urine Bacteria Moderate /HPF (NONE) EKG Diagnostic Results Rate: normal Rhythm: NSR ST Segments: no acute changes ASA given to the pt in ED: No Rhythm Strip Diag. Results EP Interpretation: yes Rhythm: NSR, no PVC's, no ectopy Chest X-Ray Diagnostic Results Chest X-Ray Ordered: Yes # of Views/Limited/Complete: 1 View Interpretation: no consolidation, no effusion, no pneumothorax Indication: Other - alterec Impression: No acute disease Date Electronically Signed: Apr 27, 2017 Time Electronically Signed: 15:53 Interpreting ER Physician: Luis Angel Valdivia MD CT/MRI/US Diagnostic Results CT/MRI/US Diagnostic Results : Imaging Test Ordered: CT head Impression no acute process Last Vital Signs Date Time Temp Pulse Resp B/P Pulse Ox O2 Delivery O2 Flow Rate FiO2 04/27/17 14:00 102 84/42 04/27/17 13:50 18 Room Air 04/27/17 11:27 98 Status: improved Disposition: ADMITTED INPATIENT Condition: Critical Referrals: KORTNEY DODGE (PCP) LUIS ANGEL VALDIVIA M.D. Apr 27, 2017 15:57
[2017-04-27] MEDS ORDERED: Levophed 4mg/4mL Inj IV ONE (16:50)
[2017-04-27] MEDS ORDERED: Vancomycin 1.5gm/D5W 300ml 300 ML IVPB ONE (17:30)
[2017-04-27] MEDS: Docusate 100mg cap ORAL SCH (18:00)
[2017-04-27] MEDS: Sodium Bicarbonate 50 ML in D5 1/2NS 1,000 ML IV SCH (20:18)
[2017-04-27] MEDS: Nuedexta Capsule 20/10mg ORAL SCH (21:00)
[2017-04-27] MEDS: Atorvastatin 80mg tab ORAL SCH (21:00)
[2017-04-27] MEDS ORDERED: Cefepime HCl 1 GM in D5W 55 ML IVPB SCH (23:00)
[2017-04-28] VITALS (26 sets, daily range): BP systolic 85–175; BP diastolic 40–99
--- NOTE | 2017-04-28 01:15 | History and Physical Report ---
DATE OF ADMISSION: 04/27/2017 CHIEF COMPLAINT: Septic shock, acute renal failure and lactic acidosis. HISTORY OF PRESENT ILLNESS: The patient is a 67-year-old, female with prior history of stroke, hypertension, diabetes, and chronic kidney disease. She was transferred from a [facility] facility with altered mental status. On evaluation in emergency room, the patient was hypotensive. She required pressors for blood pressure support. She is aggressively hydrated. Laboratory workup in the emergency room, she had a white count of 19,000, sodium 134, creatinine 4.2, and lactic acid of 5. She had an elevated troponin of 0.46 and CK level of 3800. The patient has been started on IV fluids as well as IV antibiotics and is now admitted for further inpatient evaluation and care. PAST MEDICAL HISTORY: As above. PAST SURGICAL HISTORY: None. CURRENT MEDICATIONS: Reconciled and reviewed. ALLERGIES: Include penicillin. FAMILY HISTORY: Noncontributory. SOCIAL HISTORY: There is no known history of tobacco, ethanol, or drugs. REVIEW OF SYSTEMS: From the patient is unobtainable as she is confused. PHYSICAL EXAMINATION: VITAL SIGNS: The patient's temperature was 98.8 degrees, pulse 96, respirations 20, and blood pressure 144/56. GENERAL: The patient is well-developed female in no apparent distress. She is poorly responsive and confused. NECK: Supple. There is no lymphadenopathy. No jugular venous distention. HEART: Regular rate and rhythm. LUNGS: Clear. ABDOMEN: Soft, nontender, and nondistended. EXTREMITIES: Without clubbing, cyanosis, or edema. The patient has a chronic left-sided hemiparesis. LABORATORY DATA: Sodium 134, potassium 4.3, bicarbonate 13, BUN 59, and creatinine 4.2. Lactic acid level of 5.2, CK was 3800, and troponin 0.46. UA showed too numerous count WBCs. ASSESSMENT: This is an elderly female admitted with complaints of septic shock, acute renal failure, urinary tract infection, lactic acidosis, toxic metabolic encephalopathy, history of diabetes and stroke, and acute myocardial infarction. PLAN: Admitted to intensive care unit. Aggressive fluid resuscitation. Empiric antibiotic therapy for sepsis and urinary tract infection. Continue pressors as needed. Antiplatelet therapy with aspirin. Continue outpatient diabetic regimen. The patient's status is critical and guarded. Francis Jones M.D. DR: ERIC JOB#: [id number] CC:
[2017-04-28] MEDS ORDERED: Diltiazem 25mg/5ml IV ONE ×2 (01:45→02:30)
[2017-04-28] MEDS ORDERED: LORazepam Inj 2mg/ml 1ml IV ONE (02:15)
[2017-04-28] MEDS ORDERED: Sodium Bicarbonate 50ml Carp ONE (04:52)
[2017-04-28] MEDS: Sodium Bicarbonate 50 ML in D5 1/2NS 1,000 ML IV SCH ×4 (04:58→23:35)
[2017-04-28 05:50] LABS: TROPONIN I 0.65 ng/mL (<=0.30)
[2017-04-28] MEDS ORDERED: Acetaminophen 650 MG SUPP RECTAL ONE (07:55)
[2017-04-28] MEDS: Aspirin EC 81mg tab ORAL SCH (08:44)
[2017-04-28] MEDS: Nuedexta Capsule 20/10mg ORAL SCH ×2 (09:00→20:30)
[2017-04-28] MEDS: Docusate 100mg cap ORAL SCH ×2 (09:00→17:06)
[2017-04-28] MEDS: Acetaminophen 650 MG SUPP RECTAL PRN (09:09)
[2017-04-28] MEDS: Norepinephrine 4mg in D5W 250ml IV SCH ×2 (09:21→20:00)
[2017-04-28] MEDS: Pantoprazole Inj IVP SCH (10:20)
[2017-04-28] MEDS: Heparin 5000 units/ml inj SUBQ SCH ×2 (10:22→20:33)
[2017-04-28] MEDS: LORazepam Inj 2mg/ml 1ml IV PRN ×3 (11:16→23:34)
[2017-04-28] MEDS ORDERED: Vancomycin 750mg/D5W 275ml IVPB ONE ×2 (11:30)
[2017-04-28] MEDS: NovoLOG Insulin Flexpen SUBQ SCH ×3 (11:55→20:35)
[2017-04-28] MEDS: Levemir Flexpen SUBQ SCH ×2 (11:56→20:34)
[2017-04-28 12:58] LABS: MEAN CORPUSCULAR HEMOGLOBIN 24.1 PG (27.0-31.0); MEAN CORPUSCULAR HGB CONC 31.6 G/DL (32.0-36.0); MEAN CORPUSCULAR VOLUME 76 FL (80-99); MEAN PLATELET VOLUME 6.8 FL (6.5-10.1); PLATELET COUNT 130 K/UL (150-450); RED BLOOD COUNT 3.59 M/UL (4.20-5.40); RED CELL DISTRIBUTION WIDTH 22.8 % (11.6-14.8); WHITE BLOOD COUNT 11.2 K/UL (4.8-10.8)
[2017-04-28 13:11] LABS: ALBUMIN/GLOBULIN RATIO 0.4 (1.0-2.7); CALCIUM 6.4 mg/dL (8.6-10.2); CREATININE 2.6 mg/dL (0.5-0.9); GLOMERULAR FILTRATION RATE 18.3 mL/min (>60); POTASSIUM 4.1 mEQ/L (3.4-4.9); TOTAL PROTEIN 6.1 g/dL (6.6-8.7)
[2017-04-28] MEDS: Meropenem 500 MG in NS 55 ML IVPB SCH ×2 (13:23→20:30)
[2017-04-28 13:48] LABS: BAND NEUTROPHILS % (MANUAL) 9 % (0-8); BASOPHILS % (MANUAL) 0 % (0-2); EOSINOPHILS % (MANUAL) 2 % (0-3); LYMPHOCYTES % (MANUAL) 5 % (20-45); NEUTROPHILS % (MANUAL) 78 % (45-75); PLATELET ESTIMATE DECREASED; PLATELET MORPHOLOGY NORMAL; TOTAL CELLS COUNTED 100
[2017-04-28 13:49] LABS: ANISOCYTOSIS 2+; HYPOCHROMASIA 1+; MICROCYTES 1+
[2017-04-28] MEDS ORDERED: Sodium Bicarbonate 50 ML in D5 1/2NS 1,000 ML IV SCH ×4 (15:00)
--- NOTE | 2017-04-28 15:07 | Cardiology Report ---
APPROVED REPORT EKG Measurement Heart [id number] Normal sinus rhythm Possible Inferior infarct, age undetermined Anteroseptal infarct, age undetermined Abnormal ECG
--- NOTE | 2017-04-28 15:29 | Cardiology Report ---
APPROVED REPORT EXAM: Two-dimensional and M-mode echocardiogram with Doppler and color Doppler. INDICATION Atrial Fibrillation M-Mode DIMENSIONS IVSd1.2 (0.7-1.1cm)Left Atrium (MM)4.6 (1.6-4.0cm) LVDd3.9 (3.5-5.6cm)Aortic Root3.0 (2.0-3.7cm) PWd1.0 (0.7-1.1cm)Aortic Cusp Exc.1.9 (1.5-2.0cm) LVDs2.1 (2.5-4.0cm) PWs1.4 cm Technically difficult study due to poor acoustic windows and combative patient. Study quality precludes accurate assessment of regional wall motion. Normal left ventricular chamber size, systolic function and wall motion. Left ventricular ejection fraction estimated to be 55 %. Mild left ventricular hypertrophy. Anterior Echo-free space, may be due to pericardial fat or effusion. All other cardiac chamber sizes are within normal limits. Mild focal aortic valve sclerosis with adequate cusp excursion. Mildly thickened mitral valve leaflets with normal excursion. Mild mitral annulus and aortic root calcification. Pulmonic valve not well visualized. Normal tricuspid valve structure. IVC dilated at 2.5 cm with physiologic collapse. A color flow and spectral Doppler study was performed and revealed: No aortic regurgitation. Trace mitral regurgitation. Left ventricular diastolic function could not be determined due to A-Fib. Trace tricuspid regurgitation. Tricuspid systolic velocities suggests peak right ventricular systolic pressure of 66 mmHg, consistent with severe pulmonary hypertension. No pulmonic regurgitation present.
[2017-04-28] MEDS: Metoprolol 5mg/5ml Inj IVP SCH ×2 (15:37→20:58)
[2017-04-28] MEDS: Atorvastatin 80mg tab ORAL SCH (20:30)
--- NOTE | 2017-04-28 20:30 | Consultation ---
DATE OF CONSULTATION: 04/28/2017 INFECTIOUS DISEASES CONSULTATION REFERRING PHYSICIAN: Francis Jones M.D. REASON FOR CONSULTATION: Urinary tract infection. HISTORY OF PRESENTING ILLNESS: This is a 67-year-old lady with history of hypertension, diabetes and stroke, who came from a [facility] facility with altered mental status. She was found to be hypotensive with leukocytosis and urinary tract infection and an Infectious Diseases consultation has been obtained for antibiotics. She has been admitted to the ICU. PAST MEDICAL HISTORY: 1. History of diabetes. 2. Hypertension. 3. Cerebrovascular accident. 4. Chronic kidney disease. MEDICATIONS: As an inpatient, she is on insulin, IV vancomycin, subcutaneous heparin, Protonix, Lopressor, aspirin, Tylenol, lorazepam, cefepime, Lipitor, dextromethorphan and quinidine, sodium bicarbonate, norepinephrine, docusate, ferrous sulfate and bisacodyl. ALLERGIES: The patient is allergic to penicillin. SOCIAL HISTORY: No history of smoking, alcohol, or drug use. FAMILY HISTORY: Unknown. REVIEW OF SYSTEMS: Unable to obtain currently. PHYSICAL EXAMINATION: VITAL SIGNS: Temperature of 98 degrees, T-max of 101.2, pulse of 143, respiratory rate of 18, blood pressure of 109/53, and O2 saturation of 96%. HEENT: Pupils are equally reactive to light and accommodation. Mouth appears clean without thrush. NECK: Supple. No adenopathy. No JVD. CARDIOVASCULAR: Regular rate and rhythm. No murmurs. LUNGS: Clear to auscultation bilaterally. No crackles. No wheezes. ABDOMEN: Soft and nontender. No organomegaly. EXTREMITIES: No cyanosis, no clubbing, and no edema. LABORATORY AND DIAGNOSTIC DATA: White count of 18.9, hemoglobin 10.6, hematocrit 34.3, MCV 78, platelet count of 197,000, and neutrophils of 87%. Sodium 134, potassium 4.3, chloride 96, bicarbonate 13, BUN 59, creatinine 4.2, and glucose 240. Calcium 8.2. Total bilirubin 0.7. AST 52, ALT 16 and alkaline phosphatase 131. CK of 380. CK-MB of 10.4. Troponin 0.65. Total protein 7.5. Albumin 2.5. UA showing too numerous to count white cells. Urine culture is growing gram-negative rods. Blood culture is growing gram-negative rods. Chest x-ray was negative. CT of the head was negative for acute pathology. ASSESSMENT: This is a 67-year-old lady with history of diabetes, hypertension, CVA and chronic renal failure who comes in with. 1. Gram-negative sepsis secondary to urinary tract infection. 2. She has a gram-negative urinary tract infection. 3. Leukocytosis could be secondary to above. 4. Renal failure. 5. Septic shock. PLAN: 1. Discontinue vancomycin and cefepime. 2. We will start the patient on meropenem. 3. We will follow up cultures and adjust antibiotics accordingly. I would like to thank, Dr. Jones for this consultation. Nilesh Hannon M.D. DR: JOSE JOB#: [id number] CC: Francis Jones M.D.
[2017-04-29] VITALS (24 sets, daily range): BP systolic 79–140; BP diastolic 36–105
--- NOTE | 2017-04-29 03:30 | Progress Note ---
DATE: 04/28/2017 CARDIOLOGY PROGRESS NOTE SUBJECTIVE: The patient's blood pressure has improved. Pressors have been discontinued. She remains on IV fluids and broad-spectrum antibiotics. OBJECTIVE: VITAL SIGNS: Blood pressure 97/40, pulse 148, respiratory rate 28, and afebrile. LUNGS: Clear. CARDIAC: Irregularly irregular rhythm. Rapid rate. Normal S1 and S2. ABDOMEN: Soft and nontender. EXTREMITIES: Without edema. LABORATORY AND DIAGNOSTIC DATA: White count 19.9 and hemoglobin 10.6. Albumin is 2.5. Urinalysis with too numerous to count white cells. Chest x-ray, no acute process. Echocardiogram with ejection fraction of 55%, mild degenerative valve disease and severe pulmonary hypertension with PA systolic pressure of 16 mmHg. IMPRESSION: 1. Urinary tract infection with sepsis. 2. Acute on chronic renal failure. 3. Sepsis with shock. 4. Paroxysmal atrial fibrillation with rapid ventricular response. 5. Hypertensive heart disease. 6. Type 2 diabetes mellitus. 7. Cerebrovascular disease with prior cerebrovascular accident. 8. Severe pulmonary hypertension. 9. Rhabdomyolysis. PLAN: 1. Cardiac monitoring. 2. Broad-spectrum antibiotics. 3. Await final cultures. 4. Intravenous fluid hydration. 5. Follow up laboratory studies. 6. DVT prophylaxis. 7. Beta-blockade for rate control. 8. No plan for anticoagulation in this clinical setting. 9. Insulin coverage by sliding scale. 10. Volume resuscitation. 11. Avoid resumption of pressors if able. William Mckeon M.D. DR: KAMERON JOB#: [id number] CC:
[2017-04-29] MEDS: Metoprolol 5mg/5ml Inj IVP SCH ×3 (04:25→22:38)
[2017-04-29] MEDS: LORazepam Inj 2mg/ml 1ml IV PRN ×3 (04:25→23:24)
[2017-04-29 06:10] LABS: MEAN CORPUSCULAR HEMOGLOBIN 24.7 PG (27.0-31.0); MEAN CORPUSCULAR HGB CONC 32.2 G/DL (32.0-36.0); MEAN CORPUSCULAR VOLUME 77 FL (80-99); MEAN PLATELET VOLUME 7.2 FL (6.5-10.1); PLATELET COUNT 116 K/UL (150-450); RED BLOOD COUNT 3.35 M/UL (4.20-5.40); RED CELL DISTRIBUTION WIDTH 21.6 % (11.6-14.8); WHITE BLOOD COUNT 13.8 K/UL (4.8-10.8)
[2017-04-29 06:13] LABS: TROPONIN I 1.57 ng/mL (<=0.30)
[2017-04-29] MEDS: NovoLOG Insulin Flexpen SUBQ SCH ×4 (06:13→20:55)
[2017-04-29 06:34] LABS: ALBUMIN/GLOBULIN RATIO 0.5 (1.0-2.7); CALCIUM 6.8 mg/dL (8.6-10.2); CREATININE 1.7 mg/dL (0.5-0.9); POTASSIUM 3.4 mEQ/L (3.4-4.9); TOTAL PROTEIN 6.2 g/dL (6.6-8.7)
[2017-04-29 08:04] LABS: ANISOCYTOSIS 3+; BAND NEUTROPHILS % (MANUAL) 0 % (0-8); BASOPHILS % (MANUAL) 0 % (0-2); EOSINOPHILS % (MANUAL) 1 % (0-3); HYPOCHROMASIA 2+; LYMPHOCYTES % (MANUAL) 3 % (20-45); NEUTROPHILS % (MANUAL) 91 % (45-75); PLATELET ESTIMATE DECREASED; TOTAL CELLS COUNTED 100
[2017-04-29 08:05] LABS: MICROCYTES 1+; PLATELET MORPHOLOGY NORMAL; SPHEROCYTES 1+
--- NOTE | 2017-04-29 08:31 | General Progress Note ---
Assessment/Plan Problem List: (1) Sepsis ICD Codes: A41.9 - Sepsis, unspecified organism SNOMED: 14843300 (2) UTI (urinary tract infection) ICD Codes: N39.0 - Urinary tract infection, site not specified SNOMED: 67125218, 590263331 Qualifiers: Qualified Codes: N39.0 - Urinary tract infection, site not specified (3) Altered level of consciousness ICD Codes: R40.4 - Transient alteration of awareness SNOMED: 7474090 (4) Elevated troponin ICD Codes: R74.8 - Abnormal levels of other serum enzymes; R65.21 - Severe sepsis with septic shock SNOMED: 961560304, 591322064 (5) ARF (acute renal failure) ICD Codes: N17.9 - Acute kidney failure, unspecified SNOMED: 95187673 Qualifiers: Qualified Codes: N17.9 - Acute kidney failure, unspecified (6) Septic shock ICD Codes: A41.9 - Sepsis, unspecified organism; R65.21 - Severe sepsis with septic shock SNOMED: 11952148 Status: stable Assessment/Plan decrease ivf serial troponins antiplt rx b-blockade abx anxiolytics aspiration precautions critical and guarded cards follow up Subjective ROS Limited/Unobtainable: No Constitutional: Reports: malaise, weakness HEENT: Reports: no symptoms Cardiovascular: Reports: no symptoms Respiratory: Reports: cough Gastrointestinal/Abdominal: Reports: no symptoms Genitourinary: Reports: no symptoms Neurologic/Psychiatric: Reports: pre-existing deficit Endocrine: Reports: no symptoms Hematologic/Lymphatic: Reports: no symptoms Allergies: Coded Allergies: PENICILLINS (Verified Allergy, Unknown, 03/18/17) All Systems: reviewed and negative except above Subjective troponin trending up. remains intermittently agitated. renal fxn improving. passed swallow eval. Objective Last 24 Hour Vital Signs Date Time Temp Pulse Resp B/P Pulse Ox O2 Delivery O2 Flow Rate FiO2 04/29/17 07:00 111 27 99/40 98 Nasal Cannula 2.0 04/29/17 06:00 110 26 106/49 100 Nasal Cannula 2.0 04/29/17 05:00 107 23 79/37 100 Nasal Cannula 2.0 04/29/17 04:25 138 94/53 04/29/17 04:00 126 04/29/17 04:00 98.3 126 28 94/53 100 Nasal Cannula 2.0 04/29/17 03:00 125 27 99/49 98 Nasal Cannula 2.0 04/29/17 02:00 126 28 118/83 100 Nasal Cannula 2.0 04/29/17 01:00 122 27 124/63 100 Nasal Cannula 2.0 04/29/17 00:00 117 04/29/17 00:00 98.7 117 22 109/59 98 Nasal Cannula 2.0 04/28/17 23:00 135 25 126/65 98 Nasal Cannula 2.0 04/28/17 22:00 109 28 101/56 98 Nasal Cannula 2.0 04/28/17 21:00 98.3 122 28 97/40 99 Nasal Cannula 2.0 04/28/17 20:58 148 97/40 04/28/17 20:00 124 23 85/43 97 Nasal Cannula 2.0 04/28/17 20:00 97/40 04/28/17 20:00 124 04/28/17 19:00 128 20 109/54 96 Room Air 04/28/17 18:00 123 20 94/61 96 Room Air 04/28/17 17:00 133 21 92/70 95 Room Air 04/28/17 16:00 148 04/28/17 16:00 98.5 127 20 101/63 96 Room Air 04/28/17 15:37 148 126/74 04/28/17 15:00 141 20 126/74 95 Room Air 04/28/17 14:00 146 20 139/60 96 Nasal Cannula 2.0 04/28/17 13:00 145 20 139/84 100 Nasal Cannula 2.0 04/28/17 12:00 98.0 143 18 109/53 96 Nasal Cannula 2.0 04/28/17 12:00 143 04/28/17 11:00 141 22 135/56 99 Nasal Cannula 2.0 04/28/17 10:00 140 22 121/71 96 Nasal Cannula 2.0 04/28/17 09:39 98.0 04/28/17 09:00 138 04/28/17 09:00 98.0 137 20 126/68 97 Nasal Cannula 2.0 04/28/17 08:42 60/60 Intake and Output 04/28/17 04/29/17 19:00 07:00 Intake Total 1393.7 ml 1655 ml Output Total 1125 ml 710 ml Balance 268.7 ml 945 ml Intake Oral 30 ml 100 ml IV Total 1363.7 ml 1555 ml Output Urine Total 1125 ml 710 ml Laboratory Tests 04/29/17 04:00: White Blood Count 13.8H, Red Blood Count 3.35L, Hemoglobin 8.2L, Hematocrit 25.6L, Mean Corpuscular Volume 77L, Mean Corpuscular Hemoglobin 24.7L, Mean Corpuscular Hemoglobin Concent 32.2, Red Cell Distribution Width 21.6H, Platelet Count 116L, Mean Platelet Volume 7.2, Neutrophils (%) (Auto) , Lymphocytes (%) (Auto) , Monocytes (%) (Auto) , Eosinophils (%) (Auto) , Basophils (%) (Auto) , Differential Total Cells Counted 100, Neutrophils % ( Manual) 91H, Lymphocytes % (Manual) 3L, Monocytes % (Manual) 5, Eosinophils % ( Manual) 1, Basophils % (Manual) 0, Band Neutrophils 0, Platelet Estimate DecreasedL, Platelet Morphology Normal, Hypochromasia 2+, Anisocytosis 3+, Microcytosis 1+, Spherocytes 1+, Sodium Level 143, Potassium Level 3.4, Chloride Level 106, Carbon Dioxide Level 16L, Anion Gap 21H, Blood Urea Nitrogen 32H, Creatinine 1.7H, Estimat Glomerular Filtration Rate 30.0, Glucose Level 163#H, Calcium Level 6.8L, Total Bilirubin 0.5, Aspartate Amino Transf ( AST/SGOT) 52H, Alanine Aminotransferase (ALT/SGPT) 19, Alkaline Phosphatase 109H , Troponin I 1.57*H, Total Protein 6.2L, Albumin 2.1L, Globulin 4.1, Albumin/ Globulin Ratio 0.5L Height (Feet): 5 Height (Inches): 3.00 Weight (Pounds): 151 General Appearance: WD/WN, confused Neck: normal alignment, supple Cardiovascular: normal rate, regular rhythm Respiratory/Chest: chest wall non-tender, lungs clear, normal breath sounds, no respiratory distress Abdomen: normal bowel sounds, non tender, soft, no organomegaly, no mass Edema: no edema noted Arm (L), no edema noted Arm (R), no edema noted Leg (L), no edema noted Leg (R), no edema noted Pedal (L), no edema noted Pedal (R), no edema noted Generalized Neurologic: no motor/sensory deficits, alert KORTNEY DODGE Apr 29, 2017 08:31
[2017-04-29] MEDS: Nuedexta Capsule 20/10mg ORAL SCH ×2 (08:36→20:31)
[2017-04-29] MEDS: Aspirin EC 81mg tab ORAL SCH (08:37)
[2017-04-29] MEDS: Pantoprazole Inj IVP SCH (08:37)
[2017-04-29] MEDS: Docusate 100mg cap ORAL SCH ×2 (08:37→17:39)
[2017-04-29] MEDS: Heparin 5000 units/ml inj SUBQ SCH ×2 (08:38→20:32)
[2017-04-29] MEDS: Meropenem 500 MG in NS 55 ML IVPB SCH (08:40)
[2017-04-29] MEDS: Levemir Flexpen SUBQ SCH ×2 (09:03→20:57)
[2017-04-29] MEDS ORDERED: Sodium Bicarbonate 50 ML in D5 1/2NS 1,000 ML IV SCH ×2 (10:00→12:45)
[2017-04-29] MEDS: Sodium Bicarbonate 50 ML in D5 1/2NS 1,000 ML IV SCH (10:10)
--- NOTE | 2017-04-29 11:04 | Infectious Diseases Prog Note ---
Assessment/Plan Assessment/Plan antibiotics : meropenem A 1. gram negative sepsis secondary to UTI 2. gram negative UTI 3. leucocytosis 4. renal failure improving 5. DM 6. HTN P 1. continue meropenem 2. will follow up cultures 3. US abdomen Subjective ROS Limited/Unobtainable: Yes Allergies: Coded Allergies: PENICILLINS (Verified Allergy, Unknown, 03/18/17) Objective Vital Signs Last 24 Hour Vital Signs Date Time Temp Pulse Resp B/P Pulse Ox O2 Delivery O2 Flow Rate FiO2 04/29/17 10:47 147 111/65 04/29/17 10:00 101 24 89/46 99 Nasal Cannula 2.0 04/29/17 09:00 106 24 86/42 99 Nasal Cannula 2.0 04/29/17 08:00 99.6 112 27 106/57 99 Nasal Cannula 2.0 04/29/17 08:00 108 04/29/17 07:00 111 27 99/40 98 Nasal Cannula 2.0 04/29/17 06:00 110 26 106/49 100 Nasal Cannula 2.0 04/29/17 05:00 107 23 79/37 100 Nasal Cannula 2.0 04/29/17 04:25 138 94/53 04/29/17 04:00 126 04/29/17 04:00 98.3 126 28 94/53 100 Nasal Cannula 2.0 04/29/17 03:00 125 27 99/49 98 Nasal Cannula 2.0 04/29/17 02:00 126 28 118/83 100 Nasal Cannula 2.0 04/29/17 01:00 122 27 124/63 100 Nasal Cannula 2.0 04/29/17 00:00 117 04/29/17 00:00 98.7 117 22 109/59 98 Nasal Cannula 2.0 04/28/17 23:00 135 25 126/65 98 Nasal Cannula 2.0 04/28/17 22:00 109 28 101/56 98 Nasal Cannula 2.0 04/28/17 21:00 98.3 122 28 97/40 99 Nasal Cannula 2.0 04/28/17 20:58 148 97/40 04/28/17 20:00 124 23 85/43 97 Nasal Cannula 2.0 04/28/17 20:00 97/40 04/28/17 20:00 124 04/28/17 19:00 128 20 109/54 96 Room Air 04/28/17 18:00 123 20 94/61 96 Room Air 04/28/17 17:00 133 21 92/70 95 Room Air 04/28/17 16:00 148 04/28/17 16:00 98.5 127 20 101/63 96 Room Air 04/28/17 15:37 148 126/74 04/28/17 15:00 141 20 126/74 95 Room Air 04/28/17 14:00 146 20 139/60 96 Nasal Cannula 2.0 04/28/17 13:00 145 20 139/84 100 Nasal Cannula 2.0 04/28/17 12:00 98.0 143 18 109/53 96 Nasal Cannula 2.0 04/28/17 12:00 143 Height (Feet): 5 Height (Inches): 3.00 Weight (Pounds): 151 Respiratory/Chest: lungs clear Cardiovascular: normal rate, regular rhythm, no gallop/murmur Abdomen: soft, non tender Extremities: no edema Microbiology Date/Time Source Procedure Growth Status 04/27/17 13:00 Blood Blood Culture - Preliminary Gram Negative Bacillus 1 Resulted 04/27/17 12:45 Blood Blood Culture - Preliminary Gram Negative Bacillus 1 Resulted 04/27/17 13:00 Urine,Clean Catch Urine Culture - Preliminary Gram Negative Bacillus 1 Resulted Laboratory Tests Test 04/29/17 04:00 White Blood Count 13.8 K/UL (4.8-10.8) H Red Blood Count 3.35 M/UL (4.20-5.40) L Hemoglobin 8.2 G/DL (12.0-16.0) L Hematocrit 25.6 % (37.0-47.0) L Mean Corpuscular Volume 77 FL (80-99) L Mean Corpuscular Hemoglobin 24.7 PG (27.0-31.0) L Mean Corpuscular Hemoglobin Concent 32.2 G/DL (32.0-36.0) Red Cell Distribution Width 21.6 % (11.6-14.8) H Platelet Count 116 K/UL (150-450) L Mean Platelet Volume 7.2 FL (6.5-10.1) Neutrophils (%) (Auto) % (45.0-75.0) Lymphocytes (%) (Auto) % (20.0-45.0) Monocytes (%) (Auto) % (1.0-10.0) Eosinophils (%) (Auto) % (0.0-3.0) Basophils (%) (Auto) % (0.0-2.0) Differential Total Cells Counted 100 Neutrophils % (Manual) 91 % (45-75) H Lymphocytes % (Manual) 3 % (20-45) L Monocytes % (Manual) 5 % (1-10) Eosinophils % (Manual) 1 % (0-3) Basophils % (Manual) 0 % (0-2) Band Neutrophils 0 % (0-8) Platelet Estimate Decreased L Platelet Morphology Normal Hypochromasia 2+ Anisocytosis 3+ Microcytosis 1+ Spherocytes 1+ Sodium Level 143 mEQ/L (135-145) Potassium Level 3.4 mEQ/L (3.4-4.9) Chloride Level 106 mEQ/L (98-107) Carbon Dioxide Level 16 mEQ/L (20-30) L Anion Gap 21 (5-15) H Blood Urea Nitrogen 32 mg/dL (7-23) H Creatinine 1.7 mg/dL (0.5-0.9) H Estimat Glomerular Filtration Rate 30.0 mL/min (>60) Glucose Level 163 mg/dL (74-106) #H Calcium Level 6.8 mg/dL (8.6-10.2) L Total Bilirubin 0.5 mg/dL (0.0-1.2) Aspartate Amino Transf (AST/SGOT) 52 U/L (5-40) H Alanine Aminotransferase (ALT/SGPT) 19 U/L (3-33) Alkaline Phosphatase 109 U/L (35-104) H Troponin I 1.57 ng/mL (<=0.30) *H Total Protein 6.2 g/dL (6.6-8.7) L Albumin 2.1 g/dL (3.5-5.2) L Globulin 4.1 g/dL Albumin/Globulin Ratio 0.5 (1.0-2.7) L CARON ARIAS Apr 29, 2017 11:04
--- NOTE | 2017-04-29 11:32 | Wound Care Consultation ---
Wound Assessment Wound Assessment #1: Wound Number: #1 Wound Present on Admission: Yes New Wound: No Status Change of Wound: No Wound Location Body Site: other - sacrococcygeal Wound Type: pressure ulcer Michelle Test: Does not Michelle Pressure Ulcer Stage: deep tissue injury Wound Thickness: Full Thickness Wound Length: 11.0 Wound Width: 8.0 Wound Depth: utd Percent of Wound Purple/Maroon: 100 Wound Drainage Amount: None Wound Drainage Odor: None/Absent Tissue Surrounding Wound: Intact Wound General Appearance: Reddened - maroon Wound Assessment #2: Wound Number: #2 Wound Present on Admission: Yes New Wound: No Status Change of Wound: No Wound Location Body Site: sacral Wound Type: pressure ulcer Michelle Test: Does not Michelle Pressure Ulcer Stage: III - revealing self from DTI to sacral area. two sites close in proximity on sacral . Wound Thickness: Full Thickness Wound Length: 7.0 Wound Width: 6.0 Wound Depth: 0.3 Percent of Wound [place]/Red: 50 Percent of Wound Purple/Maroon: 50 Wound Drainage Description: Serosanguineous Wound Drainage Amount: Moderate Wound Drainage Odor: None/Absent Tissue Surrounding Wound: Denuded Wound General Appearance: Reddened - maroon., Draining Wound Assessment #3: Wound Number: #3 Wound Present on Admission: Yes New Wound: No Status Change of Wound: No Wound Location Body Site Modif: left, lower, lateral Wound Location Body Site: back Wound Type: traumatic injury - etiology unknown. Michelle Test: Does not Michelle Wound Thickness: Full Thickness Wound Length: 2.0 Wound Width: 2.0 Wound Depth: 0.1 Percent of Wound [place]/Red: 100 Wound Drainage Description: Serosanguineous Wound Drainage Amount: Scant Wound Drainage Odor: None/Absent Tissue Surrounding Wound: Erythemic Wound General Appearance: Reddened Wound Comment #1 Sacrococcygeal pressure ulcer deep tissue injury. #2 Sacral pressure ulcer stage III revealing from DTI. #3 Left lateral lower back traumatic injury-etiology unknown. Recommendation. - Local wound care as ordered per protocol. - Apply low air loss p200 mattress for wound and skin management. - Turn and reposition. - Avoid shear or friction. - Keep clean and dry. - Offload affected pressure sites. - Apply heel protectors for skin management and prevention. - Assess and notify MD if any further change of condition to skin is noted. NICOLE JIN Apr 29, 2017 11:32
[2017-04-29] MEDS ORDERED: Tubing IV Secondary IV ONE (16:24)
[2017-04-29] MEDS ORDERED: NS 275ml ONE (16:24)
[2017-04-29 18:44] LABS: TROPONIN I 0.78 ng/mL (<=0.30)
[2017-04-29] MEDS: Norepinephrine 4mg in D5W 250ml IV SCH (20:00)
[2017-04-29] MEDS: Meropenem 1 GM in NS 110 ML IVPB SCH (20:34)
[2017-04-29] MEDS: Atorvastatin 80mg tab ORAL SCH (20:36)
[2017-04-30] VITALS (23 sets, daily range): BP systolic 96–151; BP diastolic 40–105
[2017-04-30] MEDS: Acetaminophen 650 MG SUPP RECTAL PRN (00:40)
[2017-04-30] MEDS: Metoprolol 5mg/5ml Inj IVP SCH (00:44)
[2017-04-30 01:03] LABS: ABG ALLEN TEST POSITIVE; ABG PCO2 26.4 mmHg (35.0-45.0)
[2017-04-30] MEDS: Metoprolol 5mg/5ml Inj IVPB SCH ×4 (02:56→17:46)
--- NOTE | 2017-04-30 03:00 | Progress Note ---
DATE: 04/29/2017 CARDIOLOGY PROGRESS NOTE: SUBJECTIVE: The patient remains with rapid heart rate. Troponin elevation noted. The patient has respiratory distress and congestion. OBJECTIVE: VITAL SIGNS: Blood pressure is 140/77, pulse rate 119, and respiratory rate 24. LUNGS: Coarse breath sounds. Scattered rhonchi. HEART: Regular rhythm. Rapid rate. Normal S1 and S2. ABDOMEN: Soft. EXTREMITIES: Trace edema. LABORATORY DATA: White count is 13.5 and hemoglobin 8.2. Troponin is 1.57. BUN is 32 and creatinine 1.7. IMPRESSION: 1. Sepsis with shock. 2. Acute myocardial infarction. 3. Acute on chronic renal failure. 4. Severe protein-calorie malnutrition. 5. Anemia. 6. Hypoxia. 7. Urinary tract infection. PLAN: 1. Cautious diuresis. 2. Beta-blockade if BP can tolerate. 3. Antimicrobials. 4. Cardiac monitoring. 5. Deep venous thrombosis prophylaxis. 6. Observe for signs of bleeding. Transfuse, if hemoglobin is less than 8 g. 7. Insulin coverage with sliding scale. 8. Continue anti-lipid therapy. 9. Avoid pressors, if able. 10. Condition is critical and prognosis is guarded. William Mckeon M.D. DR: Robi JOB#: [id number] CC: GINNY
[2017-04-30 05:57] LABS: MEAN CORPUSCULAR HEMOGLOBIN 25.6 PG (27.0-31.0); MEAN CORPUSCULAR VOLUME 78 FL (80-99); MEAN PLATELET VOLUME 8.1 FL (6.5-10.1); PLATELET COUNT 125 K/UL (150-450); RED BLOOD COUNT 3.17 M/UL (4.20-5.40); RED CELL DISTRIBUTION WIDTH 22.1 % (11.6-14.8); WHITE BLOOD COUNT 11.1 K/UL (4.8-10.8)
[2017-04-30 06:14] LABS: ALBUMIN/GLOBULIN RATIO 0.5 (1.0-2.7); CALCIUM 6.9 mg/dL (8.6-10.2); CREATININE 1.3 mg/dL (0.5-0.9); GLOMERULAR FILTRATION RATE 40.9 mL/min (>60); POTASSIUM 3.1 mEQ/L (3.4-4.9); TOTAL PROTEIN 5.7 g/dL (6.6-8.7)
[2017-04-30] MEDS: NovoLOG Insulin Flexpen SUBQ SCH ×4 (06:17→21:48)
[2017-04-30 07:05] LABS: TROPONIN I 0.78 ng/mL (<=0.30)
--- NOTE | 2017-04-30 08:58 | Diagnostic Imaging Report ---
Indications: June breath Technique: Leg the chest Findings: Comparison: 04/27/17 Interstitial infiltrate has developed throughout the right lung. Left lung remains relatively clear. Cardiac silhouette remains upper limits of normal in size. Pulmonary vasculature remains within normal limits. Right costophrenic angle now mildly indistinct; left sharp. IMPRESSION: Development of right lung interstitial infiltrate, possible small right pleural effusion. Diagnostic possibilities include interstitial pneumonitis, asymmetric pulmonary edema This correlates with [facility] preliminary report.
[2017-04-30] MEDS: Levemir Flexpen SUBQ SCH ×2 (09:00→21:49)
[2017-04-30] MEDS: Heparin 5000 units/ml inj SUBQ SCH ×2 (09:00→21:42)
--- NOTE | 2017-04-30 09:57 | Infectious Diseases Prog Note ---
Assessment/Plan Assessment/Plan 1A; 1. E. Coli sepsis 2. E. coli UTI 3. leucocytosis improving 4. renal failure improving 5. DM 6. HPN P 1. continue meropenem Subjective ROS Limited/Unobtainable: Yes Allergies: Coded Allergies: PENICILLINS (Verified Allergy, Unknown, 03/18/17) Objective Vital Signs Last 24 Hour Vital Signs Date Time Temp Pulse Resp B/P Pulse Ox O2 Delivery O2 Flow Rate FiO2 04/30/17 08:00 97.7 83 26 128/54 99 Venturi Mask 40 04/30/17 08:00 82 04/30/17 06:16 109 123/59 04/30/17 06:00 98 25 120/59 99 Venturi Mask 40 04/30/17 05:00 96 25 123/59 99 Venturi Mask 40 04/30/17 04:00 99.8 101 25 102/50 99 Venturi Mask 40 04/30/17 04:00 101 04/30/17 03:00 103 27 96/40 99 Venturi Mask 40 04/30/17 02:56 125 108/55 04/30/17 02:00 111 31 105/51 99 Venturi Mask 40 04/30/17 01:10 100.3 04/30/17 01:00 100.2 120 33 105/51 99 Venturi Mask 40 04/30/17 00:44 174 123/105 04/30/17 00:00 167 04/30/17 00:00 101.4 167 30 123/105 92 Nasal Cannula 2.0 04/29/17 23:00 111 25 123/105 95 Nasal Cannula 2.0 04/29/17 22:38 186 116/77 04/29/17 22:00 119 24 140/77 95 Nasal Cannula 2.0 04/29/17 21:00 104 24 107/67 95 Nasal Cannula 2.0 04/29/17 20:00 98 Nasal Cannula 2.0 04/29/17 20:00 Nasal Cannula 2.0 28 04/29/17 20:00 106/54 04/29/17 20:00 107 04/29/17 20:00 98.4 105 24 106/54 95 Nasal Cannula 2.0 04/29/17 19:00 94 24 95/50 100 Nasal Cannula 2.0 04/29/17 18:00 105 24 118/61 99 Nasal Cannula 2.0 04/29/17 17:00 92 25 97/42 99 Nasal Cannula 2.0 04/29/17 16:00 91 04/29/17 16:00 98.7 94 25 94/36 99 Nasal Cannula 2.0 04/29/17 15:00 104 24 94/68 99 Nasal Cannula 2.0 04/29/17 14:00 102 24 109/63 98 Nasal Cannula 2.0 04/29/17 13:00 101 24 119/46 99 Nasal Cannula 2.0 04/29/17 12:00 142 04/29/17 12:00 99.3 106 25 102/48 98 Nasal Cannula 2.0 04/29/17 11:00 143 24 111/46 99 Nasal Cannula 2.0 04/29/17 10:47 147 111/65 04/29/17 10:00 101 24 89/46 99 Nasal Cannula 2.0 Height (Feet): 5 Height (Inches): 3.00 Weight (Pounds): 152 General Appearance: no acute distress HEENT: thrush, other Respiratory/Chest: lungs clear, other - O2 by cannula Cardiovascular: normal rate Abdomen: soft, non tender Extremities: no edema, other - R femoral line Neurologic/Psychiatric: disoriented Microbiology Date/Time Source Procedure Growth Status 04/27/17 13:00 Blood Blood Culture - Final Escherichia Coli Complete 04/27/17 12:45 Blood Blood Culture - Final Escherichia Coli - Esbl Complete 04/27/17 13:00 Urine,Clean Catch Urine Culture - Final Escherichia Coli - Esbl Complete 04/27/17 13:00 Rectum VRE Culture - Final NO VANCOMYCIN RESISTANT ENTEROCOCCUS ... Complete Laboratory Tests Test 04/29/17 18:15 04/30/17 00:52 04/30/17 04:20 Troponin I 0.78 ng/mL (<=0.30) *H 0.78 ng/mL (<=0.30) *H Arterial Blood pH 7.410 (7.350-7.450) Arterial Blood Partial Pressure CO2 26.4 mmHg (35.0-45.0) L Arterial Blood Partial Pressure O2 58.0 mmHg (75.0-100.0) L Arterial Blood HCO3 16.4 mmol/L (22.0-26.0) L Arterial Blood Oxygen Saturation 86.1 % (92.0-98.0) L Arterial Blood Base Excess -7.0 Elia Test Positive White Blood Count 11.1 K/UL (4.8-10.8) H Red Blood Count 3.17 M/UL (4.20-5.40) L Hemoglobin 8.1 G/DL (12.0-16.0) L Hematocrit 24.6 % (37.0-47.0) L Mean Corpuscular Volume 78 FL (80-99) L Mean Corpuscular Hemoglobin 25.6 PG (27.0-31.0) L Mean Corpuscular Hemoglobin Concent 33.0 G/DL (32.0-36.0) Red Cell Distribution Width 22.1 % (11.6-14.8) H Platelet Count 125 K/UL (150-450) L Mean Platelet Volume 8.1 FL (6.5-10.1) Neutrophils (%) (Auto) % (45.0-75.0) Lymphocytes (%) (Auto) % (20.0-45.0) Monocytes (%) (Auto) % (1.0-10.0) Eosinophils (%) (Auto) % (0.0-3.0) Basophils (%) (Auto) % (0.0-2.0) Sodium Level 149 mEQ/L (135-145) H Potassium Level 3.1 mEQ/L (3.4-4.9) L Chloride Level 112 mEQ/L (98-107) H Carbon Dioxide Level 21 mEQ/L (20-30) Anion Gap 16 (5-15) H Blood Urea Nitrogen 24 mg/dL (7-23) H Creatinine 1.3 mg/dL (0.5-0.9) H Estimat Glomerular Filtration Rate 40.9 mL/min (>60) Glucose Level 138 mg/dL (74-106) H Calcium Level 6.9 mg/dL (8.6-10.2) L Total Bilirubin 0.8 mg/dL (0.0-1.2) Aspartate Amino Transf (AST/SGOT) 41 U/L (5-40) H Alanine Aminotransferase (ALT/SGPT) 19 U/L (3-33) Alkaline Phosphatase 149 U/L (35-104) H Total Protein 5.7 g/dL (6.6-8.7) L Albumin 1.9 g/dL (3.5-5.2) L Globulin 3.8 g/dL Albumin/Globulin Ratio 0.5 (1.0-2.7) L Current Medications Medications (Trade) Dose Ordered Sig/Amy Route PRN Reason Start Time Stop Time Status Last Admin Dose Admin Acetaminophen (Tylenol) 650 mg Q4H PRN ORAL Mild Pain (Pain Scale 1-3) 04/28/17 08:46 05/27/17 14:14 04/28/17 16:18 Acetaminophen (Tylenol) 650 mg Q4H PRN RECTAL FEVER (Temp>101) 04/28/17 08:30 05/28/17 08:29 04/30/17 00:40 Aspirin (Ecotrin) 81 mg DAILY ORAL 04/28/17 09:00 05/28/17 08:59 04/29/17 08:37 Atorvastatin Calcium (Lipitor) 80 mg BEDTIME ORAL 04/27/17 21:00 05/27/17 20:59 04/29/17 20:36 Bisacodyl (Dulcolax) 10 mg DAILYPRN PRN RECTAL Constipation 04/27/17 14:15 05/27/17 14:14 Dextromethorphan/ Quinidine (Nuedexta Capsule) 1 cap Q12HR ORAL 04/27/17 21:00 05/27/17 20:59 04/29/17 20:31 Dextrose (Dextrose 50%) STAT PRN IV Hypoglycemia 04/28/17 08:30 05/28/17 08:29 Docusate Sodium (Colace) 100 mg TWICE A DAY ORAL 04/27/17 18:00 05/27/17 17:59 04/29/17 08:37 Ferrous Sulfate 325 mg 325 mg BID ORAL 04/27/17 18:00 05/27/17 17:59 04/29/17 08:37 Heparin Sodium (Porcine) (Heparin 5000 units/ml) 5,000 units EVERY 12 HOURS SUBQ 04/28/17 10:00 05/28/17 09:59 04/29/17 20:32 Insulin Aspart (NovoLOG) BEFORE MEALS AND HS SUBQ 04/28/17 11:30 05/28/17 11:29 04/29/17 20:55 Insulin Detemir (Levemir) 6 units Q12HR SUBQ 04/28/17 11:30 05/28/17 11:29 04/29/17 20:57 Lorazepam (Ativan 2mg/ml 1ml) 1 mg Q4H PRN IV For Anxiety 04/28/17 08:30 05/05/17 08:29 04/29/17 23:24 Meropenem/Sodium Chloride (Merrem/Sodium Chloride) 110 ml @ 220 mls/hr EVERY 12 HOURS IVPB 04/29/17 21:00 05/04/17 20:59 04/29/17 20:34 Metoprolol Tartrate (Lopressor) 5 mg EVERY 6 HOURS IVPB 04/30/17 02:30 05/30/17 02:29 04/30/17 06:16 Mirtazapine 7.5 mg 7.5 mg BID ORAL 04/28/17 14:00 05/28/17 13:59 04/29/17 08:37 Morphine Sulfate (Morphine Sulfate) 1 mg Q4H PRN IM For Pain 04/30/17 03:00 05/07/17 02:59 Norepinephrine Bitartrate/ Dextrose (Levophed/D5W) 250 ml @ 0 mls/hr Q24H IV 04/27/17 20:00 05/27/17 19:59 Pantoprazole (Protonix) 40 mg DAILY IVP 04/28/17 10:00 05/28/17 09:59 04/29/17 08:37 Quetiapine Fumarate (SEROquel) 25 mg Q12HR ORAL 04/28/17 14:00 05/28/17 13:59 04/29/17 20:31 ARCHANA HARKINS Apr 30, 2017 09:57
[2017-04-30] MEDS: Nuedexta Capsule 20/10mg ORAL SCH ×2 (10:30→21:40)
[2017-04-30] MEDS: Docusate 100mg cap ORAL SCH ×2 (10:30→17:45)
[2017-04-30] MEDS: Pantoprazole Inj IVP SCH (10:31)
[2017-04-30] MEDS: Aspirin EC 81mg tab ORAL SCH (10:31)
[2017-04-30] MEDS: Meropenem 1 GM in NS 110 ML IVPB SCH ×2 (10:37→21:47)
--- NOTE | 2017-04-30 11:32 | Diagnostic Imaging Report ---
Indications: Nasogastric tube placement. Technique: AP view of the abdomen Findings: Comparison: None. Nasogastric tube has been placed, both tip and proximal side port in the region of the stomach. Central venous catheter has been placed via right femoral access, tip in region of right common iliac vein. Schroeder catheter overlies the midline lower pelvis. Bowel gas pattern is unremarkable. No abnormal calcific or soft tissue densities are demonstrated. This margin osteophytes lower lumbar spine.. IMPRESSION: Lines and tubes in place as described, in good positions No evidence of acute abdominopelvic disease Degenerative spondylosis.
--- NOTE | 2017-04-30 13:04 | Diagnostic Imaging Report ---
Indications: Elevated hepatic and renal function tests Technique: Transabdominal real-time grayscale and duplex Doppler imaging of the upper abdomen and retroperitoneum was performed. Findings: Comparison: Renal ultrasound 03/18/17. Liver normal size and surface contour, parenchymal echogenicity. No focal lesions. Gallbladder unremarkable. No intraluminal stones or sludge. No mural thickening or adjacent fluid collections. Sonographic Boyer sign negative.. Bile ducts normal caliber. Common bile duct 5 mm. Pancreas unremarkable. Spleen unremarkable. Right kidney demonstrates persistent mild collecting system dilation, unchanged; otherwise unremarkable. Left kidney demonstrates persistent minimal collecting system fullness, unchanged; otherwise unremarkable. Proximal and mid abdominal aorta patent, normal caliber. Distal abdominal aorta obscured. Portion of inferior vena cava patent, distended to 3 cm Duplex Doppler imaging demonstrates antegrade flow in splenic, portal, hepatic veins. No ascites. Small right pleural effusion. IMPRESSION: Persistent mild bilateral renal collecting system dilation, right greater than left, unchanged from prior exam, etiology indeterminate. IVC distention suggests elevated right heart pressure versus tricuspid valve insufficiency Small right pleural effusion, nonspecific Remainder of exam unremarkable, unchanged
--- NOTE | 2017-04-30 14:59 | General Progress Note ---
Assessment/Plan Problem List: (1) Sepsis ICD Codes: A41.9 - Sepsis, unspecified organism SNOMED: 98780279 (2) UTI (urinary tract infection) ICD Codes: N39.0 - Urinary tract infection, site not specified SNOMED: 23868911, 973643607 Qualifiers: Qualified Codes: N39.0 - Urinary tract infection, site not specified (3) Altered level of consciousness ICD Codes: R40.4 - Transient alteration of awareness SNOMED: 5595379 (4) Elevated troponin ICD Codes: R74.8 - Abnormal levels of other serum enzymes; R65.21 - Severe sepsis with septic shock SNOMED: 614682759, 955181136 (5) ARF (acute renal failure) ICD Codes: N17.9 - Acute kidney failure, unspecified SNOMED: 53633274 Qualifiers: Qualified Codes: N17.9 - Acute kidney failure, unspecified (6) Septic shock ICD Codes: A41.9 - Sepsis, unspecified organism; R65.21 - Severe sepsis with septic shock SNOMED: 95620035 Assessment/Plan off ivf serial troponins antiplt rx b-blockade abx anxiolytics check head ct ngt aspiration precautions critical and guarded cards follow up Subjective ROS Limited/Unobtainable: Yes Constitutional: Reports: malaise, weakness HEENT: Reports: no symptoms Cardiovascular: Reports: no symptoms Respiratory: Reports: cough, shortness of breath Gastrointestinal/Abdominal: Reports: difficulty swallowing Genitourinary: Reports: no symptoms Neurologic/Psychiatric: Reports: pre-existing deficit Endocrine: Reports: no symptoms Hematologic/Lymphatic: Reports: anemia Allergies: Coded Allergies: PENICILLINS (Verified Allergy, Unknown, 03/18/17) All Systems: reviewed and negative except above Subjective more lethargic. got MS x 1 9hrs ago. not able to swallow. too drowsy. more sob last night. briefly on venti mask. received lasix x 1. now better. Objective Last 24 Hour Vital Signs Date Time Temp Pulse Resp B/P Pulse Ox O2 Delivery O2 Flow Rate FiO2 04/30/17 14:00 67 21 117/52 100 Nasal Cannula 2.0 04/30/17 13:00 66 21 110/46 100 Nasal Cannula 2.0 04/30/17 12:34 68 122/76 04/30/17 12:00 97.4 69 21 122/76 98 Nasal Cannula 2.0 04/30/17 12:00 90 04/30/17 11:00 85 22 140/62 98 Nasal Cannula 2.0 04/30/17 10:00 85 23 130/54 98 Nasal Cannula 2.0 04/30/17 09:00 83 24 117/53 99 Nasal Cannula 2.0 04/30/17 08:00 97.7 83 26 128/54 99 Venturi Mask 40 04/30/17 08:00 82 04/30/17 06:16 109 123/59 04/30/17 06:00 98 25 120/59 99 Venturi Mask 40 04/30/17 05:00 96 25 123/59 99 Venturi Mask 40 04/30/17 04:00 99.8 101 25 102/50 99 Venturi Mask 40 04/30/17 04:00 101 04/30/17 03:00 103 27 96/40 99 Venturi Mask 40 04/30/17 02:56 125 108/55 04/30/17 02:00 111 31 105/51 99 Venturi Mask 40 04/30/17 01:10 100.3 04/30/17 01:00 100.2 120 33 105/51 99 Venturi Mask 40 04/30/17 00:44 174 123/105 04/30/17 00:00 167 04/30/17 00:00 101.4 167 30 123/105 92 Nasal Cannula 2.0 04/29/17 23:00 111 25 123/105 95 Nasal Cannula 2.0 04/29/17 22:38 186 116/77 04/29/17 22:00 119 24 140/77 95 Nasal Cannula 2.0 04/29/17 21:00 104 24 107/67 95 Nasal Cannula 2.0 04/29/17 20:00 98 Nasal Cannula 2.0 04/29/17 20:00 Nasal Cannula 2.0 28 04/29/17 20:00 106/54 04/29/17 20:00 107 04/29/17 20:00 98.4 105 24 106/54 95 Nasal Cannula 2.0 04/29/17 19:00 94 24 95/50 100 Nasal Cannula 2.0 04/29/17 18:00 105 24 118/61 99 Nasal Cannula 2.0 04/29/17 17:00 92 25 97/42 99 Nasal Cannula 2.0 04/29/17 16:00 91 04/29/17 16:00 98.7 94 25 94/36 99 Nasal Cannula 2.0 04/29/17 15:00 104 24 94/68 99 Nasal Cannula 2.0 Intake and Output 04/29/17 04/30/17 19:00 07:00 Intake Total 550 ml 450 ml Output Total 1175 ml 1960 ml Balance -625 ml -1510 ml IV Total 550 ml 450 ml Output Urine Total 1175 ml 1960 ml # Bowel Movements 3 Laboratory Tests 04/29/17 18:15: Troponin I 0.78*H 04/30/17 00:52: Arterial Blood pH 7.410, Arterial Blood Partial Pressure CO2 26.4L, Arterial Blood Partial Pressure O2 58.0L, Arterial Blood HCO3 16.4L, Arterial Blood Oxygen Saturation 86.1L, Arterial Blood Base Excess -7.0, Elia Test Positive 04/30/17 04:20: Troponin I 0.78*H, White Blood Count 11.1H, Red Blood Count 3.17L, Hemoglobin 8.1L, Hematocrit 24.6L, Mean Corpuscular Volume 78L, Mean Corpuscular Hemoglobin 25.6L, Mean Corpuscular Hemoglobin Concent 33.0, Red Cell Distribution Width 22.1H, Platelet Count 125L, Mean Platelet Volume 8.1, Neutrophils (%) (Auto) , Lymphocytes (%) (Auto) , Monocytes (%) (Auto) , Eosinophils (%) (Auto) , Basophils (%) (Auto) , Sodium Level 149H, Potassium Level 3.1L, Chloride Level 112H, Carbon Dioxide Level 21, Anion Gap 16H, Blood Urea Nitrogen 24H, Creatinine 1.3H, Estimat Glomerular Filtration Rate 40.9, Glucose Level 138H, Calcium Level 6.9L, Total Bilirubin 0.8, Aspartate Amino Transf (AST/SGOT) 41H, Alanine Aminotransferase (ALT/SGPT) 19, Alkaline Phosphatase 149H, Total Protein 5.7L, Albumin 1.9L, Globulin 3.8, Albumin/ Globulin Ratio 0.5L Height (Feet): 5 Height (Inches): 3.00 Weight (Pounds): 152 General Appearance: WD/WN, lethargic Neck: non-tender, normal alignment, supple Cardiovascular: regular rhythm Respiratory/Chest: rhonchi - bilaterally Abdomen: normal bowel sounds, non tender, soft, no organomegaly Extremities: normal range of motion Neurologic: disoriented KORTNEY DODGE Apr 30, 2017 14:59
[2017-04-30] MEDS ORDERED: KCl 10% 40mEq/30ml liquid NG ONE (15:00)
--- NOTE | 2017-04-30 15:50 | Diagnostic Imaging Report ---
Indications: Altered mental status Technique: Continuous helical CT imaging of the brain was performed with automatic exposure control on a Siemens sensation [address] scanner. Axial and coronal images were reconstructed at 5 mm slice thickness and interval. CTDI volume(s): 70 mGy Total DLP: 1425 mGy-cm Findings: Comparison: 04/28/17 Chronic encephalomalacia right middle cerebral artery territory, bilateral convexity chronic subdural fluid collections with mild mass effect right greater than left, diffuse atrophy unchanged.. No evidence of mass or hemorrhage, other attenuation abnormality, mass effect, midline shift, hydrocephalus or increased intracranial pressure. Bone window images are unremarkable. Visualized paranasal sinuses and mastoid air cells are clear. IMPRESSION: No evidence of acute intracranial pathology, unchanged Stable chronic changes as described. The CT scanner at [facility] is accredited by the [employer] and the scans are performed using protocols designed to limit radiation exposure to as low as reasonably achievable to attain images of sufficient resolution adequate for diagnostic evaluation.
[2017-04-30] MEDS: Morphine Sulfate 2mg/ml Inj IM PRN (18:12)
--- NOTE | 2017-04-30 18:30 | Progress Note ---
DATE: 04/30/2017 CARDIOLOGY PROGRESS NOTE SUBJECTIVE: The patient remains in the intensive care unit. NG tube in place. Monitored rhythm is sinus. No recurring tachycardia. She is on IV beta-denise at this time. The patient has frequent episodes of calling out and appears to have pain, morphine was given. The patient had been on a Ventimask due to respiratory distress. Diuresis was initiated and she improved. OBJECTIVE: VITAL SIGNS: Blood pressure 117/52, pulse 67, and respiratory rate 21. HEENT: NG tube in the left nares. LUNGS: Coarse breath sounds. Few rales. CARDIAC: Regular rhythm and rate. Normal S1 and S2. ABDOMEN: Soft. EXTREMITIES: With trace edema. LABORATORY AND DIAGNOSTIC DATA: White count 11.1 and hemoglobin 8.1. Troponin 0.78. BUN 24, creatinine 1.3, sodium 149, potassium 3.1, and chloride 112. Albumin 1.9. IMPRESSION: 1. Sepsis with shock. 2. Secondary sinus tachycardia. 3. Hypernatremia. 4. Dehydration. 5. Hypokalemia. 6. Acute on chronic renal failure due to acute tubular necrosis, improved. 7. Insulin-requiring diabetes mellitus. 8. Acute myocardial infarction. 9. Acute diastolic congestive heart failure. 10. Severe protein-calorie malnutrition. 11. Pneumonia with hypoxia, improving. 12. Anemia. PLAN: 1. Hypotonic IV fluids. 2. Continue IV beta-denise until tolerating medications per NG tube. 3. Antimicrobials. 4. Cardiac monitoring. 5. DVT prophylaxis. 6. Monitor hemoglobin and transfuse if drops further below 8 g. 7. Insulin titration. 8. No pressors as needed at this time. 9. Respiratory hygiene. 10. Protein supplement by NG tube. 11. Observe for residuals. William Mckeon M.D. : BHAVESH JOB#: [id number] CC:
[2017-04-30] MEDS: Norepinephrine 4mg in D5W 250ml IV SCH (20:00)
[2017-04-30] MEDS: 1/2NS w/KCl 20mEq 1000ml 1,000 ML IV SCH (20:12)
--- NOTE | 2017-04-30 20:30 | Consultation ---
DATE OF CONSULTATION: 04/30/2017 CONSULTING PHYSICIAN: Howard Chew M.D. REASON FOR CONSULTATION: Respiratory insufficiency and shortness of breath. HISTORY OF PRESENT ILLNESS: This is a 67-year-old, unfortunate female with history of stroke and hypertension. The patient presented from retirement facility for septic shock and required ICU admission. The patient's findings discussed and reviewed with the primary doctor, and he had actually come in to evaluate further. The patient also with elevated troponin, elevated creatine kinase. The patient was started on IV hydration and IV antibiotics. She was noted to be hypoxic. The patient's care discussed and reviewed, and I was asked to evaluate and recommend further. The patient is a fairly poor historian and unable to do so at this time. The patient medications reviewed. long term chart reviewed and charting reviewed. PAST MEDICAL HISTORY: Notable for hypertension, diabetes, stroke, and chronic kidney disease. MEDICATIONS: Reviewed. ALLERGIES: Reviewed. SOCIAL HISTORY: Resides in a retirement facility. REVIEW OF SYSTEMS: Unobtainable. FAMILY HISTORY: Noncontributory. PHYSICAL EXAMINATION: VITAL SIGNS: Her most current vital signs notable for blood pressure 192/76, pulse 68, saturation 100% on 2 liters, temperature 97.7, and respiratory rate 22. GENERAL: A well-developed female. The patient is on oxygen at present. The patient is in no acute distress with reduced mental status. NECK: Supple. No adenopathy. LUNGS: With moderate breath sounds. Minimal rhonchi with reduced breath sounds. CARDIOVASCULAR: S1 and S2. Regular rate and rhythm without murmur, rubs, or gallops. ABDOMEN: Soft and nontender. EXTREMITIES: No cyanosis or clubbing. No edema. NEUROLOGIC: Left-sided hemiplegia. SKIN: Exam noted and reviewed. LABORATORY DATA: ABG 7.41, 26, 58, 16, and saturating 86%. Chemistries, sodium 149, potassium 3.1, BUN 24, and creatinine 1.3. Troponin has been trending downwards that is 1.78. White cell count 11.1, hemoglobin 8.9, hematocrit 24.6, and platelets are 125,000. The patient's x-ray notable for right interstitial infiltrate, positive small right pleural effusion. IMPRESSION: 1. Pneumonia. 2. Hypoxemia. 3. Evidence of metabolic acidosis. 4. Septic shock. 5. Lactic acidemia. 6. Focal hemiplegia. 7. History of stroke. 8. History of urinary tract infection. 9. Likely acute on chronic renal failure. 10. Electrolyte imbalance. 11. History of diabetes. RECOMMENDATIONS: 1. Supportive care. 2. IV hydration. 3. IV antibiotics. 4. Monitor x-ray and exam. 5. Monitor oxygen needs. 6. Correct metabolic acidosis and follow clinically. 7. Prophylaxis for DVT. 8. Maintain ICU care until the patient is hemodynamically stable and the patient is improved. Howard Chew M.D. DR: ZEV JOB#: [id number] CC:
[2017-04-30] MEDS: Atorvastatin 80mg tab ORAL SCH (21:40)
[2017-04-30] MEDS: LORazepam Inj 2mg/ml 1ml IV PRN (22:23)
[2017-05-01] VITALS (20 sets, daily range): BP systolic 93–157; BP diastolic 32–78
[2017-05-01] MEDS: Metoprolol 5mg/5ml Inj IVPB SCH ×3 (00:04→12:13)
[2017-05-01] MEDS: Morphine Sulfate 2mg/ml Inj IM PRN ×2 (01:48→20:15)
[2017-05-01 05:49] LABS: BASOPHILS % (AUTO) 1.1 % (0.0-2.0); EOSINOPHILS % (AUTO) 7.2 % (0.0-3.0); LYMPHOCYTES % (AUTO) 13.3 % (20.0-45.0); MEAN CORPUSCULAR HEMOGLOBIN 25.2 PG (27.0-31.0); MEAN CORPUSCULAR HGB CONC 31.9 G/DL (32.0-36.0); MEAN CORPUSCULAR VOLUME 79 FL (80-99); MEAN PLATELET VOLUME 7.5 FL (6.5-10.1); MONOCYTES % (AUTO) 7.8 % (1.0-10.0); NEUTROPHILS % (AUTO) 70.6 % (45.0-75.0); PLATELET COUNT 119 K/UL (150-450); RED BLOOD COUNT 3.55 M/UL (4.20-5.40); RED CELL DISTRIBUTION WIDTH 22.5 % (11.6-14.8)
[2017-05-01] MEDS: NovoLOG Insulin Flexpen SUBQ SCH ×4 (06:15→21:41)
[2017-05-01 08:07] LABS: CALCIUM 7.3 mg/dL (8.6-10.2); CREATININE 1.3 mg/dL (0.5-0.9); GLOMERULAR FILTRATION RATE 40.9 mL/min (>60); MAGNESIUM 1.3 mg/dL (1.7-2.5); POTASSIUM 4.5 mEQ/L (3.4-4.9); TOTAL PROTEIN 5.8 g/dL (6.6-8.7)
[2017-05-01 08:08] LABS: ALBUMIN/GLOBULIN RATIO 0.3 (1.0-2.7)
--- NOTE | 2017-05-01 08:28 | Critical Care Progress Note ---
Assessment/Plan Assessment/Plan IMPRESSION: 1. Pneumonia. 2. Hypoxemia. 3. Evidence of metabolic acidosis. 4. Septic shock. 5. Lactic acidemia. 6. Focal hemiplegia. 7. History of stroke. 8. History of urinary tract infection. 9. Likely acute on chronic renal failure. 10. Electrolyte imbalance. 11. History of diabetes. PLAN follow up acid base IV antibiotics IV hydration monitor for aspiration monitor congestion ICU care follow up for further changes and intervention fairly labile meds reviewed medications/laboratory data/nursing notes/ICU care reviewed in detail note reviewed and edited care discussed with RN and RT ICU time spent 35 minutes Critical Care - Subjective Interval Events: care noted ICU reviewed withdrawn ROS Limited/Unobtainable: Yes Condition: critical EKG Rhythm: Sinus Rhythm I&O: Intake and Output 04/30/17 05/01/17 19:00 07:00 Intake Total 190 ml 1005 ml Output Total 855 ml 761 ml Balance -665 ml 244 ml Intake Oral 0 ml Free Water 80 ml IV Total 110 ml 825 ml Tube Feeding 180 ml Output Urine Total 855 ml 760 ml Stool Total 1 ml # Bowel Movements 3 5 Critical Care - Objective Last 24 Hour Vital Signs Date Time Temp Pulse Resp B/P Pulse Ox O2 Delivery O2 Flow Rate FiO2 05/01/17 07:00 97.8 75 15 143/68 98 Nasal Cannula 2.0 05/01/17 06:14 75 132/51 05/01/17 06:00 75 15 130/62 100 Nasal Cannula 2.0 05/01/17 05:00 76 16 128/59 100 Nasal Cannula 2.0 05/01/17 04:00 97.6 71 13 100/52 100 Nasal Cannula 2.0 05/01/17 04:00 88 05/01/17 03:00 75 13 135/62 100 Nasal Cannula 2.0 05/01/17 02:00 76 22 93/52 100 Nasal Cannula 2.0 05/01/17 01:00 76 22 121/65 99 Nasal Cannula 2.0 05/01/17 00:04 82 134/61 05/01/17 00:00 97.8 73 22 134/61 99 Nasal Cannula 2.0 05/01/17 00:00 73 04/30/17 23:00 82 22 126/59 99 Nasal Cannula 2.0 04/30/17 22:00 87 19 142/62 97 Nasal Cannula 2.0 04/30/17 21:00 82 19 151/72 98 Nasal Cannula 2.0 04/30/17 20:00 124/60 04/30/17 20:00 76 04/30/17 20:00 97.8 76 23 124/60 98 Nasal Cannula 2.0 04/30/17 19:18 98 Nasal Cannula 2.0 28 04/30/17 19:18 Nasal Cannula 2.0 28 04/30/17 19:00 77 19 123/52 98 Nasal Cannula 2.0 04/30/17 18:00 76 21 132/60 98 Nasal Cannula 2.0 04/30/17 17:46 90 136/66 04/30/17 17:00 78 30 136/66 99 Nasal Cannula 2.0 04/30/17 16:00 82 04/30/17 16:00 97.6 78 21 134/66 98 Nasal Cannula 2.0 04/30/17 15:00 84 22 124/52 100 Nasal Cannula 2.0 04/30/17 14:00 67 21 117/52 100 Nasal Cannula 2.0 04/30/17 13:00 66 21 110/46 100 Nasal Cannula 2.0 04/30/17 12:34 68 122/76 04/30/17 12:00 97.4 69 21 122/76 98 Nasal Cannula 2.0 04/30/17 12:00 90 04/30/17 11:00 85 22 140/62 98 Nasal Cannula 2.0 04/30/17 10:00 85 23 130/54 98 Nasal Cannula 2.0 04/30/17 09:00 83 24 117/53 99 Nasal Cannula 2.0 Labs: Labs Test 04/29/17 04:00 04/29/17 18:15 04/30/17 00:52 04/30/17 04:20 White Blood Count 13.8 K/UL (4.8-10.8) 11.1 K/UL (4.8-10.8) Red Blood Count 3.35 M/UL (4.20-5.40) 3.17 M/UL (4.20-5.40) Hemoglobin 8.2 G/DL (12.0-16.0) 8.1 G/DL (12.0-16.0) Hematocrit 25.6 % (37.0-47.0) 24.6 % (37.0-47.0) Mean Corpuscular Volume 77 FL (80-99) 78 FL (80-99) Mean Corpuscular Hemoglobin 24.7 PG (27.0-31.0) 25.6 PG (27.0-31.0) Mean Corpuscular Hemoglobin Concent 32.2 G/DL (32.0-36.0) 33.0 G/DL (32.0-36.0) Red Cell Distribution Width 21.6 % (11.6-14.8) 22.1 % (11.6-14.8) Platelet Count 116 K/UL (150-450) 125 K/UL (150-450) Mean Platelet Volume 7.2 FL (6.5-10.1) 8.1 FL (6.5-10.1) Neutrophils (%) (Auto) % (45.0-75.0) % (45.0-75.0) Lymphocytes (%) (Auto) % (20.0-45.0) % (20.0-45.0) Monocytes (%) (Auto) % (1.0-10.0) % (1.0-10.0) Eosinophils (%) (Auto) % (0.0-3.0) % (0.0-3.0) Basophils (%) (Auto) % (0.0-2.0) % (0.0-2.0) Differential Total Cells Counted 100 Neutrophils % (Manual) 91 % (45-75) Lymphocytes % (Manual) 3 % (20-45) Monocytes % (Manual) 5 % (1-10) Eosinophils % (Manual) 1 % (0-3) Basophils % (Manual) 0 % (0-2) Band Neutrophils 0 % (0-8) Platelet Estimate Decreased Platelet Morphology Normal Hypochromasia 2+ Anisocytosis 3+ Microcytosis 1+ Spherocytes 1+ Sodium Level 143 mEQ/L (135-145) 149 mEQ/L (135-145) Potassium Level 3.4 mEQ/L (3.4-4.9) 3.1 mEQ/L (3.4-4.9) Chloride Level 106 mEQ/L (98-107) 112 mEQ/L (98-107) Carbon Dioxide Level 16 mEQ/L (20-30) 21 mEQ/L (20-30) Anion Gap 21 (5-15) 16 (5-15) Blood Urea Nitrogen 32 mg/dL (7-23) 24 mg/dL (7-23) Creatinine 1.7 mg/dL (0.5-0.9) 1.3 mg/dL (0.5-0.9) Estimat Glomerular Filtration Rate 30.0 mL/min (>60) 40.9 mL/min (>60) Glucose Level 163 mg/dL (74-106) 138 mg/dL (74-106) Calcium Level 6.8 mg/dL (8.6-10.2) 6.9 mg/dL (8.6-10.2) Total Bilirubin 0.5 mg/dL (0.0-1.2) 0.8 mg/dL (0.0-1.2) Aspartate Amino Transf (AST/SGOT) 52 U/L (5-40) 41 U/L (5-40) Alanine Aminotransferase (ALT/SGPT) 19 U/L (3-33) 19 U/L (3-33) Alkaline Phosphatase 109 U/L (35-104) 149 U/L (35-104) Troponin I 1.57 ng/mL (<=0.30) 0.78 ng/mL (<=0.30) 0.78 ng/mL (<=0.30) Total Protein 6.2 g/dL (6.6-8.7) 5.7 g/dL (6.6-8.7) Albumin 2.1 g/dL (3.5-5.2) 1.9 g/dL (3.5-5.2) Globulin 4.1 g/dL 3.8 g/dL Albumin/Globulin Ratio 0.5 (1.0-2.7) 0.5 (1.0-2.7) Arterial Blood pH 7.410 (7.350-7.450) Arterial Blood Partial Pressure CO2 26.4 mmHg (35.0-45.0) Arterial Blood Partial Pressure O2 58.0 mmHg (75.0-100.0) Arterial Blood HCO3 16.4 mmol/L (22.0-26.0) Arterial Blood Oxygen Saturation 86.1 % (92.0-98.0) Arterial Blood Base Excess -7.0 Elia Test Positive Test 05/01/17 04:50 White Blood Count 9.0 K/UL (4.8-10.8) Red Blood Count 3.55 M/UL (4.20-5.40) Hemoglobin 8.9 G/DL (12.0-16.0) Hematocrit 28.0 % (37.0-47.0) Mean Corpuscular Volume 79 FL (80-99) Mean Corpuscular Hemoglobin 25.2 PG (27.0-31.0) Mean Corpuscular Hemoglobin Concent 31.9 G/DL (32.0-36.0) Red Cell Distribution Width 22.5 % (11.6-14.8) Platelet Count 119 K/UL (150-450) Mean Platelet Volume 7.5 FL (6.5-10.1) Neutrophils (%) (Auto) 70.6 % (45.0-75.0) Lymphocytes (%) (Auto) 13.3 % (20.0-45.0) Monocytes (%) (Auto) 7.8 % (1.0-10.0) Eosinophils (%) (Auto) 7.2 % (0.0-3.0) Basophils (%) (Auto) 1.1 % (0.0-2.0) Sodium Level 146 mEQ/L (135-145) Potassium Level 4.5 mEQ/L (3.4-4.9) Chloride Level 113 mEQ/L (98-107) Carbon Dioxide Level 17 mEQ/L (20-30) Anion Gap 16 (5-15) Blood Urea Nitrogen 31 mg/dL (7-23) Creatinine 1.3 mg/dL (0.5-0.9) Estimat Glomerular Filtration Rate 40.9 mL/min (>60) Glucose Level 164 mg/dL (74-106) Calcium Level 7.3 mg/dL (8.6-10.2) Magnesium Level 1.3 mg/dL (1.7-2.5) Total Bilirubin 0.5 mg/dL (0.0-1.2) Aspartate Amino Transf (AST/SGOT) 43 U/L (5-40) Alanine Aminotransferase (ALT/SGPT) 17 U/L (3-33) Alkaline Phosphatase 112 U/L (35-104) Pro-B-Type Natriuretic Peptide 9577 pg/mL (0-125) Total Protein 5.8 g/dL (6.6-8.7) Albumin 1.6 g/dL (3.5-5.2) Globulin 4.2 g/dL Albumin/Globulin Ratio 0.3 (1.0-2.7) Objective: GENERAL: A well-developed female. on o2; NAD NECK: Supple. No adenopathy. LUNGS: With moderate breath sounds. occasional rhonchi with reduced breath sounds. CARDIOVASCULAR: S1 and S2. Regular rate and rhythm without murmur, rubs, or gallops. ABDOMEN: Soft and nontender. no HSM EXTREMITIES: No cyanosis or clubbing. No edema. NEUROLOGIC: Left-sided hemiplegia. SKIN: Exam noted and reviewed. Accucheck: 150 MASSIEL SPENCER May 01, 2017 08:28
[2017-05-01] MEDS ORDERED: Ascorbic Acid 500mg tab ORAL SCH (09:00)
[2017-05-01] MEDS ORDERED: Multivitamins W/Minerals 15 ML UDC NG SCH (09:00)
[2017-05-01] MEDS: Aspirin EC 81mg tab ORAL SCH (09:00)
[2017-05-01] MEDS: Nuedexta Capsule 20/10mg ORAL SCH (09:17)
[2017-05-01] MEDS: Docusate 100mg cap ORAL SCH ×3 (09:17→20:53)
[2017-05-01] MEDS: 1/2NS w/KCl 20mEq 1000ml 1,000 ML IV SCH ×2 (09:18→20:20)
[2017-05-01] MEDS: Meropenem 1 GM in NS 110 ML IVPB SCH ×2 (09:18→21:37)
[2017-05-01] MEDS: Pantoprazole Inj IVP SCH (09:19)
[2017-05-01] MEDS: Heparin 5000 units/ml inj SUBQ SCH ×2 (09:21→20:54)
[2017-05-01] MEDS ORDERED: Aspirin Baby 81mg NG SCH (10:01)
[2017-05-01] MEDS: Levemir Flexpen SUBQ SCH ×2 (10:11→21:39)
--- NOTE | 2017-05-01 12:18 | Infectious Diseases Prog Note ---
Assessment/Plan Assessment/Plan antibiotics : meropenem A 1. e.coli sepsis secondary to UTI 2. e.coli UTI 3. leucocytosis improving 4. renal failure improving 5. DM 6. HTN 7. nasal MRSA colonization P 1. continue meropenem 2. will follow up cultures Subjective ROS Limited/Unobtainable: Yes Allergies: Coded Allergies: PENICILLINS (Verified Allergy, Unknown, 03/18/17) Objective Vital Signs Last 24 Hour Vital Signs Date Time Temp Pulse Resp B/P Pulse Ox O2 Delivery O2 Flow Rate FiO2 05/01/17 12:13 89 127/47 05/01/17 11:00 88 17 100/47 97 Nasal Cannula 2.0 05/01/17 10:00 80 17 118/51 97 Nasal Cannula 2.0 05/01/17 09:00 83 17 142/62 100 Nasal Cannula 2.0 05/01/17 08:00 77 15 113/57 100 Nasal Cannula 2.0 05/01/17 08:00 83 05/01/17 07:00 97.8 75 15 143/68 98 Nasal Cannula 2.0 05/01/17 06:14 75 132/51 05/01/17 06:00 75 15 130/62 100 Nasal Cannula 2.0 05/01/17 05:00 76 16 128/59 100 Nasal Cannula 2.0 05/01/17 04:00 97.6 71 13 100/52 100 Nasal Cannula 2.0 05/01/17 04:00 88 05/01/17 03:00 75 13 135/62 100 Nasal Cannula 2.0 05/01/17 02:00 76 22 93/52 100 Nasal Cannula 2.0 05/01/17 01:00 76 22 121/65 99 Nasal Cannula 2.0 05/01/17 00:04 82 134/61 05/01/17 00:00 97.8 73 22 134/61 99 Nasal Cannula 2.0 05/01/17 00:00 73 04/30/17 23:00 82 22 126/59 99 Nasal Cannula 2.0 04/30/17 22:00 87 19 142/62 97 Nasal Cannula 2.0 04/30/17 21:00 82 19 151/72 98 Nasal Cannula 2.0 04/30/17 20:00 124/60 04/30/17 20:00 76 04/30/17 20:00 97.8 76 23 124/60 98 Nasal Cannula 2.0 04/30/17 19:18 98 Nasal Cannula 2.0 28 04/30/17 19:18 Nasal Cannula 2.0 28 04/30/17 19:00 77 19 123/52 98 Nasal Cannula 2.0 04/30/17 18:00 76 21 132/60 98 Nasal Cannula 2.0 04/30/17 17:46 90 136/66 04/30/17 17:00 78 30 136/66 99 Nasal Cannula 2.0 04/30/17 16:00 82 04/30/17 16:00 97.6 78 21 134/66 98 Nasal Cannula 2.0 04/30/17 15:00 84 22 124/52 100 Nasal Cannula 2.0 04/30/17 14:00 67 21 117/52 100 Nasal Cannula 2.0 04/30/17 13:00 66 21 110/46 100 Nasal Cannula 2.0 04/30/17 12:34 68 122/76 Height (Feet): 5 Height (Inches): 3.00 Weight (Pounds): 154 Respiratory/Chest: lungs clear Cardiovascular: normal rate, regular rhythm, no gallop/murmur Abdomen: soft, non tender Extremities: no edema Laboratory Tests Test 05/01/17 04:50 White Blood Count 9.0 K/UL (4.8-10.8) Red Blood Count 3.55 M/UL (4.20-5.40) L Hemoglobin 8.9 G/DL (12.0-16.0) L Hematocrit 28.0 % (37.0-47.0) L Mean Corpuscular Volume 79 FL (80-99) L Mean Corpuscular Hemoglobin 25.2 PG (27.0-31.0) L Mean Corpuscular Hemoglobin Concent 31.9 G/DL (32.0-36.0) L Red Cell Distribution Width 22.5 % (11.6-14.8) H Platelet Count 119 K/UL (150-450) L Mean Platelet Volume 7.5 FL (6.5-10.1) Neutrophils (%) (Auto) 70.6 % (45.0-75.0) Lymphocytes (%) (Auto) 13.3 % (20.0-45.0) L Monocytes (%) (Auto) 7.8 % (1.0-10.0) Eosinophils (%) (Auto) 7.2 % (0.0-3.0) H Basophils (%) (Auto) 1.1 % (0.0-2.0) Sodium Level 146 mEQ/L (135-145) H Potassium Level 4.5 mEQ/L (3.4-4.9) Chloride Level 113 mEQ/L (98-107) H Carbon Dioxide Level 17 mEQ/L (20-30) L Anion Gap 16 (5-15) H Blood Urea Nitrogen 31 mg/dL (7-23) H Creatinine 1.3 mg/dL (0.5-0.9) H Estimat Glomerular Filtration Rate 40.9 mL/min (>60) Glucose Level 164 mg/dL (74-106) H Calcium Level 7.3 mg/dL (8.6-10.2) L Magnesium Level 1.3 mg/dL (1.7-2.5) L Total Bilirubin 0.5 mg/dL (0.0-1.2) Aspartate Amino Transf (AST/SGOT) 43 U/L (5-40) H Alanine Aminotransferase (ALT/SGPT) 17 U/L (3-33) Alkaline Phosphatase 112 U/L (35-104) H Pro-B-Type Natriuretic Peptide 9577 pg/mL (0-125) H Total Protein 5.8 g/dL (6.6-8.7) L Albumin 1.6 g/dL (3.5-5.2) L Globulin 4.2 g/dL Albumin/Globulin Ratio 0.3 (1.0-2.7) L CARON ARIAS May 01, 2017 12:18
--- NOTE | 2017-05-01 14:29 | General Progress Note ---
Assessment/Plan Problem List: (1) Sepsis ICD Codes: A41.9 - Sepsis, unspecified organism SNOMED: 46893652 (2) UTI (urinary tract infection) ICD Codes: N39.0 - Urinary tract infection, site not specified SNOMED: 10866390, 283112681 Qualifiers: Qualified Codes: N39.0 - Urinary tract infection, site not specified (3) Altered level of consciousness ICD Codes: R40.4 - Transient alteration of awareness SNOMED: 5506223 (4) Elevated troponin ICD Codes: R74.8 - Abnormal levels of other serum enzymes; R65.21 - Severe sepsis with septic shock SNOMED: 630592517, 802284564 (5) ARF (acute renal failure) ICD Codes: N17.9 - Acute kidney failure, unspecified SNOMED: 71340144 Qualifiers: Qualified Codes: N17.9 - Acute kidney failure, unspecified (6) Septic shock ICD Codes: A41.9 - Sepsis, unspecified organism; R65.21 - Severe sepsis with septic shock SNOMED: 36621418 Status: stable, progressing Assessment/Plan serial troponins antiplt rx b-blockade abx anxiolytics EEG neuro eval ngt aspiration precautions critical and guarded cards follow up Subjective ROS Limited/Unobtainable: Yes Constitutional: Reports: malaise, weakness HEENT: Reports: no symptoms Cardiovascular: Reports: no symptoms Respiratory: Reports: shortness of breath Gastrointestinal/Abdominal: Reports: difficulty swallowing Genitourinary: Reports: no symptoms Neurologic/Psychiatric: Reports: pre-existing deficit Endocrine: Reports: no symptoms Hematologic/Lymphatic: Reports: no symptoms Allergies: Coded Allergies: PENICILLINS (Verified Allergy, Unknown, 03/18/17) All Systems: reviewed and negative except above Subjective remains lethargic and confused. head ct negative. on ngt feeds. Objective Last 24 Hour Vital Signs Date Time Temp Pulse Resp B/P Pulse Ox O2 Delivery O2 Flow Rate FiO2 05/01/17 14:00 74 15 96/32 98 Nasal Cannula 2.0 05/01/17 13:00 87 16 95/34 98 Nasal Cannula 2.0 05/01/17 12:13 89 127/47 05/01/17 12:00 97.9 87 15 127/47 97 Nasal Cannula 2.0 05/01/17 12:00 85 05/01/17 11:00 88 17 100/47 97 Nasal Cannula 2.0 05/01/17 10:00 80 17 118/51 97 Nasal Cannula 2.0 05/01/17 09:00 83 17 142/62 100 Nasal Cannula 2.0 05/01/17 08:00 77 15 113/57 100 Nasal Cannula 2.0 05/01/17 08:00 83 05/01/17 07:00 97.8 75 15 143/68 98 Nasal Cannula 2.0 05/01/17 06:14 75 132/51 05/01/17 06:00 75 15 130/62 100 Nasal Cannula 2.0 05/01/17 05:00 76 16 128/59 100 Nasal Cannula 2.0 05/01/17 04:00 97.6 71 13 100/52 100 Nasal Cannula 2.0 05/01/17 04:00 88 05/01/17 03:00 75 13 135/62 100 Nasal Cannula 2.0 05/01/17 02:00 76 22 93/52 100 Nasal Cannula 2.0 05/01/17 01:00 76 22 121/65 99 Nasal Cannula 2.0 05/01/17 00:04 82 134/61 05/01/17 00:00 97.8 73 22 134/61 99 Nasal Cannula 2.0 05/01/17 00:00 73 04/30/17 23:00 82 22 126/59 99 Nasal Cannula 2.0 04/30/17 22:00 87 19 142/62 97 Nasal Cannula 2.0 04/30/17 21:00 82 19 151/72 98 Nasal Cannula 2.0 04/30/17 20:00 124/60 04/30/17 20:00 76 04/30/17 20:00 97.8 76 23 124/60 98 Nasal Cannula 2.0 04/30/17 19:18 98 Nasal Cannula 2.0 28 04/30/17 19:18 Nasal Cannula 2.0 28 04/30/17 19:00 77 19 123/52 98 Nasal Cannula 2.0 04/30/17 18:00 76 21 132/60 98 Nasal Cannula 2.0 04/30/17 17:46 90 136/66 04/30/17 17:00 78 30 136/66 99 Nasal Cannula 2.0 04/30/17 16:00 82 04/30/17 16:00 97.6 78 21 134/66 98 Nasal Cannula 2.0 04/30/17 15:00 84 22 124/52 100 Nasal Cannula 2.0 Intake and Output 04/30/17 05/01/17 19:00 07:00 Intake Total 190 ml 1005 ml Output Total 855 ml 761 ml Balance -665 ml 244 ml Intake Oral 0 ml Free Water 80 ml IV Total 110 ml 825 ml Tube Feeding 180 ml Output Urine Total 855 ml 760 ml Stool Total 1 ml # Bowel Movements 3 5 Laboratory Tests 05/01/17 04:50: White Blood Count 9.0, Red Blood Count 3.55L, Hemoglobin 8.9L, Hematocrit 28.0L , Mean Corpuscular Volume 79L, Mean Corpuscular Hemoglobin 25.2L, Mean Corpuscular Hemoglobin Concent 31.9L, Red Cell Distribution Width 22.5H, Platelet Count 119L, Mean Platelet Volume 7.5, Neutrophils (%) (Auto) 70.6, Lymphocytes (%) (Auto) 13.3L, Monocytes (%) (Auto) 7.8, Eosinophils (%) (Auto) 7.2H, Basophils (%) (Auto) 1.1, Sodium Level 146H, Potassium Level 4.5, Chloride Level 113H, Carbon Dioxide Level 17L, Anion Gap 16H, Blood Urea Nitrogen 31H, Creatinine 1.3H, Estimat Glomerular Filtration Rate 40.9, Glucose Level 164H, Calcium Level 7.3L, Magnesium Level 1.3L, Total Bilirubin 0.5, Aspartate Amino Transf (AST/SGOT) 43H, Alanine Aminotransferase (ALT/SGPT) 17, Alkaline Phosphatase 112H, Pro-B-Type Natriuretic Peptide 9577H, Total Protein 5.8L, Albumin 1.6L, Globulin 4.2, Albumin/Globulin Ratio 0.3L Height (Feet): 5 Height (Inches): 3.00 Weight (Pounds): 154 General Appearance: WD/WN, lethargic, confused Neck: supple Cardiovascular: regular rhythm Respiratory/Chest: lungs clear, normal breath sounds, no respiratory distress Abdomen: normal bowel sounds, non tender, soft, no organomegaly, no mass Neurologic: disoriented KORTNEY DODGE May 01, 2017 14:29
[2017-05-01] MEDS ORDERED: Lactulose 10gm/15ml UDC ORAL PRN ×2 (15:00→19:39)
--- NOTE | 2017-05-01 17:38 | Neurology Progress Note ---
Interim History Interim History ROS Limited/Unobtainable: Yes Objective Physical Exam Last Vital Signs Date Time Temp Pulse Resp B/P Pulse Ox O2 Delivery O2 Flow Rate FiO2 05/01/17 17:00 87 16 132/55 97 Nasal Cannula 2.0 05/01/17 16:00 98.0 04/30/17 19:18 28 Laboratory Tests Test 05/01/17 04:50 White Blood Count 9.0 K/UL (4.8-10.8) Red Blood Count 3.55 M/UL (4.20-5.40) L Hemoglobin 8.9 G/DL (12.0-16.0) L Hematocrit 28.0 % (37.0-47.0) L Mean Corpuscular Volume 79 FL (80-99) L Mean Corpuscular Hemoglobin 25.2 PG (27.0-31.0) L Mean Corpuscular Hemoglobin Concent 31.9 G/DL (32.0-36.0) L Red Cell Distribution Width 22.5 % (11.6-14.8) H Platelet Count 119 K/UL (150-450) L Mean Platelet Volume 7.5 FL (6.5-10.1) Neutrophils (%) (Auto) 70.6 % (45.0-75.0) Lymphocytes (%) (Auto) 13.3 % (20.0-45.0) L Monocytes (%) (Auto) 7.8 % (1.0-10.0) Eosinophils (%) (Auto) 7.2 % (0.0-3.0) H Basophils (%) (Auto) 1.1 % (0.0-2.0) Sodium Level 146 mEQ/L (135-145) H Potassium Level 4.5 mEQ/L (3.4-4.9) Chloride Level 113 mEQ/L (98-107) H Carbon Dioxide Level 17 mEQ/L (20-30) L Anion Gap 16 (5-15) H Blood Urea Nitrogen 31 mg/dL (7-23) H Creatinine 1.3 mg/dL (0.5-0.9) H Estimat Glomerular Filtration Rate 40.9 mL/min (>60) Glucose Level 164 mg/dL (74-106) H Calcium Level 7.3 mg/dL (8.6-10.2) L Magnesium Level 1.3 mg/dL (1.7-2.5) L Total Bilirubin 0.5 mg/dL (0.0-1.2) Aspartate Amino Transf (AST/SGOT) 43 U/L (5-40) H Alanine Aminotransferase (ALT/SGPT) 17 U/L (3-33) Alkaline Phosphatase 112 U/L (35-104) H Pro-B-Type Natriuretic Peptide 9577 pg/mL (0-125) H Total Protein 5.8 g/dL (6.6-8.7) L Albumin 1.6 g/dL (3.5-5.2) L Globulin 4.2 g/dL Albumin/Globulin Ratio 0.3 (1.0-2.7) L Impression/Recommendations Problems: (1) Persistant verbal unresponciveness, multifactorial. 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
[2017-05-01] MEDS ORDERED: Metoprolol Tartrate 5 MG in NS 55 ML IVPB SCH (18:00)
--- NOTE | 2017-05-01 18:30 | Progress Note ---
DATE: 05/01/2017 CARDIOLOGY PROGRESS NOTE SUBJECTIVE: The patient remains in the intensive care unit. Her condition remains critical. Prognosis guarded. She is withdrawn. She has congestion. OBJECTIVE: VITAL SIGNS: Blood pressure ranging from 100/47 to 142/62, heart rate is in the 80s, and respiratory 17. She is afebrile. She is saturating on nasal cannula 2 liters, 97%. Monitored rhythm is sinus. LUNGS: Coarse breath sounds. Scattered rhonchi. HEART: Regular rhythm. Rapid rate. Normal S1 and S2. ABDOMEN: Soft. EXTREMITIES: Trace dependent edema. LABORATORY DATA: White count 9 and hemoglobin 8.9. BUN 31 and creatinine 1.3. Sodium 146, potassium 4.5, BUN 31, and creatinine 1.3. Albumin 1.6. Pro-natriuretic peptide is 9577. IMPRESSION: 1. Acute myocardial infarction. 2. Hypomagnesemia with a magnesium level 1.3. 3. Severe protein-calorie malnutrition. 4. Acute on chronic diastolic congestive heart failure. 5. Dehydration. 6. Hypernatremia. 7. Prerenal azotemia. 8. Sepsis with shock. 9. Secondary sinus tachycardia. PLAN: 1. Continue beta blockade. 2. Transition from IV to oral dosing. 3. Intravenous magnesium. 4. Protein supplement. 5. Anti-platelet therapy. 6. Free water replacement via IV route. 7. Continue intensive care unit care. William Mckeon M.D. DR: YULIA JOB#: [id number] CC:
[2017-05-01] MEDS ORDERED: Sodium Bicarbonate 4% 2.4meq/5ml vial INJ ONE (18:45)
[2017-05-01] MEDS ORDERED: Lidocaine 1% Plain 30 ml INJ ONE (18:45)
[2017-05-01] MEDS ORDERED: Heparin 2000 units/Ns 1000ml INJ ONE (18:45)
[2017-05-01] MEDS ORDERED: Acetaminophen 650 MG SUPP RECTAL PRN (20:30)
[2017-05-01] MEDS: Metoprolol Tartrate 5 MG in NS 55 ML IVPB SCH (20:45)
[2017-05-01] MEDS: LORazepam Inj 2mg/ml 1ml IV PRN (23:33)
[2017-05-02] VITALS (9 sets, daily range): BP systolic 133–171; BP diastolic 69–92
--- NOTE | 2017-05-02 00:15 | Consultation ---
DATE OF CONSULTATION: 05/01/2017 NEUROLOGICAL CONSULTATION CONSULTING PHYSICIAN: Zbigniew Shirley M.D. REFERRING PHYSICIAN: Francis Jones M.D. HISTORY OF PRESENT ILLNESS: This is a [id number], seen in neurological consultation to evaluate persistent changes in mental status. The patient reportedly was able to verbally communicative, became verbally unresponsive, moaning and groaning. Paramedics were called to the scene describing that previously the patient was acting normally and appropriately, but then became quite mumbling with inappropriate sounds. Her blood sugar was 290. There was no paroxysmal activity noted. Her blood pressure in the field was 124/101, heart rate of 38 , and respirations 18. This patient was brought to the emergency room. Vital signs revealed presence of blood pressure 80/46, heart rate of 128. Her initial lab work included electrolyte panel with sodium of 134, anion gap of 25, BUN of 59, and creatinine 4.2. Elevated lactic acid 5.20. AST 52 with CPK of 3880 and CK-MB 10.4. The patient had elevated troponin 0.65 and on repeated studies remained elevated, initially 1.57 and now 0.78. Her latest BUN 31 and creatinine is 1.3. Urinalysis, WBC too numerous to count, 3+ leukocyte esterase, 3+ protein. Coagulation panel was normal. CBC study with WBC 18.9, hemoglobin 10.6, hematocrit 34.3, platelet count down to 119,000, and 9 bands. Imaging studies included a chest x-ray, which was initially negative. Repeat chest x-ray revealed development of right lung interstitial infiltrate, possibly small right pleural effusion. Stat CT of the brain was obtained on 04/27/2017 and this revealed multiple pathology including chronic encephalomalacia compatible with old right middle cerebral artery territory infarct. There was extensive bilateral cerebral periventricular white matter changes, and diffuse atrophy. There was bilateral chronic subdural effusions, right more than left, with mild mass effect, but without midline shift. Following admission, the patient's status remained touch of confusion, being nonverbal, and noncommunicative. Repeat CT was obtained last night and this was unchanged from previous study. Due to persistent changes in mental status, neurological consult was requested. 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 ALLERGIES: Penicillin. MEDICATIONS: The patient's treatment prior to admission included aspirin, atorvastatin, Nuedexta, epoetin, insulin, lorazepam 0.5 mg, melatonin, Remeron, Lyrica, Seroquel, and tizanidine. Following current admission, she remained on IV fluids and antibiotics. FAMILY HISTORY: Noncontributory. SOCIAL HISTORY: Lives in a nursing facility. REVIEW OF SYMPTOMS: Not obtained due to the patient's status. PHYSICAL EXAMINATION: GENERAL: The patient is a well-developed, ill-appearing female, who is periodically loudly moaning and groaning. MUSCULOSKELETAL: Muscles with spastic left hemiparesis. Flexor contracture of the wrist. PERIPHERAL PULSES: 1+ and symmetric. NEUROLOGIC: Mental Status: The patient is nonverbal. Does not respond to verbal command. She does not follow any commands. She is moaning and groaning. Remaining still. CRANIAL NERVE II: Pupils both responding to light and accommodation. Extraocular movements are normal. The patient maintained eyes closed all the time resisting the exam. CRANIAL NERVE V: Normal corneal responses. CRANIAL NERVE VII: Minor asymmetry. CRANIAL NERVE VIII: Decreased hearing. CRANIAL NERVE IX THROUGH XII: Unable to test. The patient maintained mouth shut. MOTOR: The patient has spastic left hemiplegia with no active movement. Some muscle aches in both lower extremities. There is a slight flexor contracture of left knee. Able to resist both right upper and right lower extremity. Reflexes depressed bilaterally. Positive Babinski in the left. SENSORY EXAM: No response to pin stimulation. IMPRESSION: 1. This is a 67-year-old female who presents with persistent and verbal unresponsiveness, multifactorial, predominantly due to underlying infection and metabolic derangement. 2. Old right middle cerebral artery distribution massive stroke with left hemiplegia. 3. Bilateral chronic subdural hematoma with mass effect. 4. Urinary tract infection with urosepsis. 5. Renal failure. 6. Acute myocardial infarction. 7. History of hypertension. 8. History diabetes type 2. DISCUSSION: The patient has evidence of left hemiplegia, which is in response to her old stroke. Level of her consciousness abruptly changed, became nonverbal, which coincided with significant metabolic derangement, renal failure, as well as urosepsis. I see no evidence of ongoing seizure activities, and no evidence that the patient sustained additional new stroke. An EEG was requested and pending. The patient meanwhile will continue with the current treatment, IV fluids and antibiotics. I will discontinue Seroquel and atorvastatin. MEANWHILE, WE WILL CONTINUE WITH IV FLUIDS AND ANTIBIOTICS. SUPPORTIVE CARE. AVOIDING OVERSEDATION: Hold Remeron. This will be restarted when the patient is fully awake. Thank you for allowing me to see this interesting patient in neurological consultation. Zbigniew Shirley M.D. DR: ISAAC JOB#: [id number] CC:
[2017-05-02] MEDS: Metoprolol Tartrate 5 MG in NS 55 ML IVPB SCH ×4 (02:24→21:05)
[2017-05-02] MEDS: 1/2NS w/KCl 20mEq 1000ml 1,000 ML IV SCH ×2 (02:25→18:07)
[2017-05-02] MEDS: Morphine Sulfate 2mg/ml Inj IM PRN ×3 (02:26→17:00)
[2017-05-02] MEDS: LORazepam Inj 2mg/ml 1ml IV PRN ×3 (04:25→22:01)
[2017-05-02] MEDS ORDERED: Heparin 2000 units/Ns 1000ml INJ ONE (06:00)
[2017-05-02] MEDS ORDERED: Sodium Bicarbonate 4% 2.4meq/5ml vial INJ ONE (06:00)
[2017-05-02] MEDS ORDERED: Lidocaine 1% Plain 30 ml INJ ONE (06:00)
[2017-05-02] MEDS: NovoLOG Insulin Flexpen SUBQ SCH ×3 (06:05→17:29)
[2017-05-02 06:25] LABS: BASOPHILS % (AUTO) 0.5 % (0.0-2.0); EOSINOPHILS % (AUTO) 5.4 % (0.0-3.0); LYMPHOCYTES % (AUTO) 14.7 % (20.0-45.0); MEAN CORPUSCULAR HEMOGLOBIN 24.2 PG (27.0-31.0); MEAN CORPUSCULAR HGB CONC 30.9 G/DL (32.0-36.0); MEAN CORPUSCULAR VOLUME 78 FL (80-99); MEAN PLATELET VOLUME 8.4 FL (6.5-10.1); MONOCYTES % (AUTO) 6.5 % (1.0-10.0); NEUTROPHILS % (AUTO) 72.9 % (45.0-75.0); PLATELET COUNT 188 K/UL (150-450); RED BLOOD COUNT 3.61 M/UL (4.20-5.40); WHITE BLOOD COUNT 11.3 K/UL (4.8-10.8)
--- NOTE | 2017-05-02 07:09 | Diagnostic Imaging Report ---
Indications: Central venous catheter placement Technique: Portable AP abdomen Findings: Comparison: 04/30/17 Previously placed central venous catheter via right common femoral vein has been replaced or partially withdrawn, tip currently in region of distal aspect of external iliac vein. Nasogastric tube remains within stomach. Bowel gas pattern remains unremarkable. Degenerative changes again noted in lumbar spine. IMPRESSION: Placement will versus partial withdrawal of the right femoral central venous catheter, tip still in functional position. Correlate clinically. No other change This correlates with [facility] preliminary report.
[2017-05-02 07:16] LABS: TROPONIN I < 0.30 ng/mL (<=0.30)
[2017-05-02] MEDS: Docusate 100mg cap ORAL SCH ×2 (08:18→17:00)
[2017-05-02] MEDS: Ascorbic Acid 500mg tab ORAL SCH (08:18)
[2017-05-02] MEDS: Meropenem 1 GM in NS 110 ML IVPB SCH ×2 (08:18→21:05)
[2017-05-02] MEDS: Levemir Flexpen SUBQ SCH ×2 (08:20→21:12)
[2017-05-02] MEDS: Heparin 5000 units/ml inj SUBQ SCH ×2 (08:21→21:06)
[2017-05-02] MEDS: Multivitamins W/Minerals 15 ML UDC NG SCH (08:26)
--- NOTE | 2017-05-02 10:06 | Critical Care Progress Note ---
Assessment/Plan Assessment/Plan IMPRESSION: 1. Pneumonia. 2. Hypoxemia. 3. Evidence of metabolic acidosis. 4. Septic shock. 5. Lactic acidemia. 6. Focal hemiplegia. 7. History of stroke. 8. History of urinary tract infection. 9. Likely acute on chronic renal failure. 10. Electrolyte imbalance. 11. History of diabetes. PLAN follow up acid base as needed monitor airway IV antibiotics IV hydration monitor for aspiration monitor congestion [facility]BY care follow up for further changes and intervention fairly labile but seems slightly improved meds reviewed medications/laboratory data/nursing notes reviewed in detail note reviewed and edited care discussed with RN and RT Critical Care - Subjective Interval Events: transferred to [facility] care noted no distress ROS Limited/Unobtainable: Yes EKG Rhythm: Sinus Rhythm I&O: Intake and Output 05/01/17 05/02/17 19:00 07:00 Intake Total 1525 ml 1120 ml Output Total 510 ml 1460 ml Balance 1015 ml -340 ml IV Total 1295 ml 900 ml Tube Feeding 180 ml 220 ml Other 50 ml Output Urine Total 510 ml 1460 ml # Bowel Movements 1 Critical Care - Objective Last 24 Hour Vital Signs Date Time Temp Pulse Resp B/P Pulse Ox O2 Delivery O2 Flow Rate FiO2 05/02/17 08:17 99 151/71 05/02/17 08:00 80 18 151/71 99 Room Air 05/02/17 06:00 90 20 145/69 98 05/02/17 05:00 98 20 150/69 98 05/02/17 04:00 97.7 98 20 171/72 98 05/02/17 04:00 92 05/02/17 02:24 95 156/82 05/02/17 00:00 98.5 92 20 143/76 98 Nasal Cannula 2.0 05/02/17 00:00 98.5 92 20 143/76 98 05/02/17 00:00 92 05/01/17 20:45 100 157/78 05/01/17 20:00 100 05/01/17 20:00 97.9 99 20 157/78 100 05/01/17 18:00 90 16 144/55 97 Nasal Cannula 2.0 05/01/17 17:00 87 16 132/55 97 Nasal Cannula 2.0 05/01/17 16:00 98.0 88 16 146/62 98 Nasal Cannula 2.0 05/01/17 16:00 91 6/23/17 15:00 85 16 138/49 97 Nasal Cannula 2.0 05/01/17 14:00 74 15 96/32 98 Nasal Cannula 2.0 05/01/17 13:00 87 16 95/34 98 Nasal Cannula 2.0 05/01/17 12:13 89 127/47 05/01/17 12:00 97.9 87 15 127/47 97 Nasal Cannula 2.0 05/01/17 12:00 85 05/01/17 11:00 88 17 100/47 97 Nasal Cannula 2.0 Labs: Labs Test 04/29/17 18:15 04/30/17 00:52 04/30/17 04:20 05/01/17 04:50 Troponin I 0.78 ng/mL (<=0.30) 0.78 ng/mL (<=0.30) Arterial Blood pH 7.410 (7.350-7.450) Arterial Blood Partial Pressure CO2 26.4 mmHg (35.0-45.0) Arterial Blood Partial Pressure O2 58.0 mmHg (75.0-100.0) Arterial Blood HCO3 16.4 mmol/L (22.0-26.0) Arterial Blood Oxygen Saturation 86.1 % (92.0-98.0) Arterial Blood Base Excess -7.0 Elia Test Positive White Blood Count 11.1 K/UL (4.8-10.8) 9.0 K/UL (4.8-10.8) Red Blood Count 3.17 M/UL (4.20-5.40) 3.55 M/UL (4.20-5.40) Hemoglobin 8.1 G/DL (12.0-16.0) 8.9 G/DL (12.0-16.0) Hematocrit 24.6 % (37.0-47.0) 28.0 % (37.0-47.0) Mean Corpuscular Volume 78 FL (80-99) 79 FL (80-99) Mean Corpuscular Hemoglobin 25.6 PG (27.0-31.0) 25.2 PG (27.0-31.0) Mean Corpuscular Hemoglobin Concent 33.0 G/DL (32.0-36.0) 31.9 G/DL (32.0-36.0) Red Cell Distribution Width 22.1 % (11.6-14.8) 22.5 % (11.6-14.8) Platelet Count 125 K/UL (150-450) 119 K/UL (150-450) Mean Platelet Volume 8.1 FL (6.5-10.1) 7.5 FL (6.5-10.1) Neutrophils (%) (Auto) % (45.0-75.0) 70.6 % (45.0-75.0) Lymphocytes (%) (Auto) % (20.0-45.0) 13.3 % (20.0-45.0) Monocytes (%) (Auto) % (1.0-10.0) 7.8 % (1.0-10.0) Eosinophils (%) (Auto) % (0.0-3.0) 7.2 % (0.0-3.0) Basophils (%) (Auto) % (0.0-2.0) 1.1 % (0.0-2.0) Sodium Level 149 mEQ/L (135-145) 146 mEQ/L (135-145) Potassium Level 3.1 mEQ/L (3.4-4.9) 4.5 mEQ/L (3.4-4.9) Chloride Level 112 mEQ/L (98-107) 113 mEQ/L (98-107) Carbon Dioxide Level 21 mEQ/L (20-30) 17 mEQ/L (20-30) Anion Gap 16 (5-15) 16 (5-15) Blood Urea Nitrogen 24 mg/dL (7-23) 31 mg/dL (7-23) Creatinine 1.3 mg/dL (0.5-0.9) 1.3 mg/dL (0.5-0.9) Estimat Glomerular Filtration Rate 40.9 mL/min (>60) 40.9 mL/min (>60) Glucose Level 138 mg/dL (74-106) 164 mg/dL (74-106) Calcium Level 6.9 mg/dL (8.6-10.2) 7.3 mg/dL (8.6-10.2) Total Bilirubin 0.8 mg/dL (0.0-1.2) 0.5 mg/dL (0.0-1.2) Aspartate Amino Transf (AST/SGOT) 41 U/L (5-40) 43 U/L (5-40) Alanine Aminotransferase (ALT/SGPT) 19 U/L (3-33) 17 U/L (3-33) Alkaline Phosphatase 149 U/L (35-104) 112 U/L (35-104) Total Protein 5.7 g/dL (6.6-8.7) 5.8 g/dL (6.6-8.7) Albumin 1.9 g/dL (3.5-5.2) 1.6 g/dL (3.5-5.2) Globulin 3.8 g/dL 4.2 g/dL Albumin/Globulin Ratio 0.5 (1.0-2.7) 0.3 (1.0-2.7) Magnesium Level 1.3 mg/dL (1.7-2.5) Pro-B-Type Natriuretic Peptide 9577 pg/mL (0-125) Test 05/02/17 05:44 White Blood Count 11.3 K/UL (4.8-10.8) Red Blood Count 3.61 M/UL (4.20-5.40) Hemoglobin 8.7 G/DL (12.0-16.0) Hematocrit 28.3 % (37.0-47.0) Mean Corpuscular Volume 78 FL (80-99) Mean Corpuscular Hemoglobin 24.2 PG (27.0-31.0) Mean Corpuscular Hemoglobin Concent 30.9 G/DL (32.0-36.0) Red Cell Distribution Width 22.0 % (11.6-14.8) Platelet Count 188 K/UL (150-450) Mean Platelet Volume 8.4 FL (6.5-10.1) Neutrophils (%) (Auto) 72.9 % (45.0-75.0) Lymphocytes (%) (Auto) 14.7 % (20.0-45.0) Monocytes (%) (Auto) 6.5 % (1.0-10.0) Eosinophils (%) (Auto) 5.4 % (0.0-3.0) Basophils (%) (Auto) 0.5 % (0.0-2.0) Ammonia 27 umol/L (11-51) Troponin I < 0.30 ng/mL (<=0.30) Objective: GENERAL: A well-developed female. on o2; NAD NECK: Supple. No adenopathy. LUNGS: With reduced breath sounds. some rhonchi with reduced breath sounds. CARDIOVASCULAR: S1 and S2. Regular rate and rhythm without murmur, rubs, or gallops. ABDOMEN: Soft and nontender. no HSM; no distention EXTREMITIES: No cyanosis or clubbing. No edema. NEUROLOGIC: Left-sided hemiplegia. SKIN: Exam noted and reviewed. Accucheck: 125 MASSIEL SPENCER May 02, 2017 10:05
[2017-05-02] MEDS: Aspirin Baby 81mg NG SCH (10:48)
--- NOTE | 2017-05-02 13:36 | General Progress Note ---
Assessment/Plan Problem List: (1) Sepsis ICD Codes: A41.9 - Sepsis, unspecified organism SNOMED: 36143409 (2) UTI (urinary tract infection) ICD Codes: N39.0 - Urinary tract infection, site not specified SNOMED: 07591861, 616063369 Qualifiers: Qualified Codes: N39.0 - Urinary tract infection, site not specified (3) Altered level of consciousness ICD Codes: R40.4 - Transient alteration of awareness SNOMED: 2882925 (4) Elevated troponin ICD Codes: R74.8 - Abnormal levels of other serum enzymes; R65.21 - Severe sepsis with septic shock SNOMED: 253596871, 704393890 (5) ARF (acute renal failure) ICD Codes: N17.9 - Acute kidney failure, unspecified SNOMED: 23038515 Qualifiers: Qualified Codes: N17.9 - Acute kidney failure, unspecified (6) Septic shock ICD Codes: A41.9 - Sepsis, unspecified organism; R65.21 - Severe sepsis with septic shock SNOMED: 09018140 Status: stable, not improved, unchanged Assessment/Plan antiplt rx b-blockade abx anxiolytics EEG neuro appreciated ngt aspiration precautions may need gt consider mri critical and guarded cards follow up Subjective ROS Limited/Unobtainable: Yes Constitutional: Reports: malaise, weakness HEENT: Reports: no symptoms Cardiovascular: Reports: no symptoms Respiratory: Reports: cough, shortness of breath, sputum Gastrointestinal/Abdominal: Reports: difficulty swallowing Genitourinary: Reports: no symptoms Neurologic/Psychiatric: Reports: pre-existing deficit Endocrine: Reports: no symptoms Hematologic/Lymphatic: Reports: anemia Allergies: Coded Allergies: PENICILLINS (Verified Allergy, Unknown, 03/18/17) All Systems: reviewed and negative except above Subjective remains lethargic and confused. head ct negative. on ngt feeds. trop negative. neuro input appreciated Objective Last 24 Hour Vital Signs Date Time Temp Pulse Resp B/P Pulse Ox O2 Delivery O2 Flow Rate FiO2 05/02/17 13:17 92 133/78 05/02/17 12:00 92 18 133/78 93 Room Air 05/02/17 12:00 97.7 05/02/17 08:17 99 151/71 05/02/17 08:00 80 18 151/71 99 Room Air 05/02/17 08:00 80 05/02/17 06:00 90 20 145/69 98 05/02/17 05:00 98 20 150/69 98 05/02/17 04:00 97.7 98 20 171/72 98 05/02/17 04:00 92 05/02/17 02:24 95 156/82 05/02/17 00:00 98.5 92 20 143/76 98 Nasal Cannula 2.0 05/02/17 00:00 98.5 92 20 143/76 98 05/02/17 00:00 92 05/01/17 20:45 100 157/78 05/01/17 20:00 100 05/01/17 20:00 97.9 99 20 157/78 100 05/01/17 18:00 90 16 144/55 97 Nasal Cannula 2.0 05/01/17 17:00 87 16 132/55 97 Nasal Cannula 2.0 05/01/17 16:00 98.0 88 16 146/62 98 Nasal Cannula 2.0 05/01/17 16:00 91 05/01/17 15:00 85 16 138/49 97 Nasal Cannula 2.0 05/01/17 14:00 74 15 96/32 98 Nasal Cannula 2.0 Intake and Output 05/01/17 05/02/17 19:00 07:00 Intake Total 1525 ml 1120 ml Output Total 510 ml 1460 ml Balance 1015 ml -340 ml IV Total 1295 ml 900 ml Tube Feeding 180 ml 220 ml Other 50 ml Output Urine Total 510 ml 1460 ml # Bowel Movements 1 Laboratory Tests 05/02/17 05:44: White Blood Count 11.3H, Red Blood Count 3.61L, Hemoglobin 8.7L, Hematocrit 28.3L, Mean Corpuscular Volume 78L, Mean Corpuscular Hemoglobin 24.2L, Mean Corpuscular Hemoglobin Concent 30.9L, Red Cell Distribution Width 22.0H, Platelet Count 188#, Mean Platelet Volume 8.4, Neutrophils (%) (Auto) 72.9, Lymphocytes (%) (Auto) 14.7L, Monocytes (%) (Auto) 6.5, Eosinophils (%) (Auto) 5.4H, Basophils (%) (Auto) 0.5, Sodium Level [Pending], Potassium Level [Pending ], Chloride Level [Pending], Carbon Dioxide Level [Pending], Blood Urea Nitrogen [Pending], Creatinine [Pending], Estimat Glomerular Filtration Rate [ Pending], Glucose Level [Pending], Calcium Level [Pending], Total Bilirubin [ Pending], Aspartate Amino Transf (AST/SGOT) [Pending], Alanine Aminotransferase (ALT/SGPT) [Pending], Alkaline Phosphatase [Pending], Ammonia 27, Troponin I < 0.30, Total Protein [Pending], Albumin [Pending], Globulin [Pending] Height (Feet): 5 Height (Inches): 3.00 Weight (Pounds): 155 Objective General Appearance: WD/WN, lethargic, confused, somnolent Neck: supple Cardiovascular: regular rhythm Respiratory/Chest: lungs clear, normal breath sounds, no respiratory distress Abdomen: normal bowel sounds, non tender, soft, no organomegaly, no mass Neurologic: disoriented KORTNEY DODGE May 02, 2017 13:36
[2017-05-02 14:07] LABS: ALBUMIN/GLOBULIN RATIO 0.5 (1.0-2.7); GLOMERULAR FILTRATION RATE 55.3 mL/min (>60); POTASSIUM 3.7 mEQ/L (3.4-4.9); TOTAL PROTEIN 6.4 g/dL (6.6-8.7)
[2017-05-02] MEDS ORDERED: NS 275ml ONE (14:44)
--- NOTE | 2017-05-03 | Progress Note ---
DATE: 05/02/2017 CARDIOLOGY PROGRESS NOTE SUBJECTIVE: Condition unchanged. No complaints. No distress. Remains on close observation. Monitored rhythm sinus and sinus tachycardia. OBJECTIVE: VITAL SIGNS: Blood pressure 132/78, pulse 92, respiratory rate 18, and afebrile. LUNGS: Bilateral breath sounds. HEART: Regular rhythm and rate. Normal S1 and S2. ABDOMEN: Soft. EXTREMITIES: Trace edema. LABORATORY AND DIAGNOSTIC DATA: Abdominal x-ray reveals stable placement of femoral catheter on the right. White count 11.3 and hemoglobin 8.7. BUN 23 and creatinine 1. Ammonia is normal. Troponin is negative. Albumin is 2.2. Sodium 140, potassium 3.7, bicarbonate 21, BUN 23, and creatinine 1.0. IMPRESSION: 1. Acute myocardial infarction. 2. Dehydration. 3. Hyponatremia. 4. Severe protein-calorie malnutrition. 5. Poor peripheral access. 6. Secondary sinus tachycardia. 7. Hypomagnesemia. 8. Aspiration risk. PLAN: 1. Free water replacement. 2. Continue beta blockade. 3. Swallow evaluation. 4. Respiratory hygiene. 5. Antimicrobial. 6. Monitor acid-base parameters and adjust fluids accordingly. William Mckeon M.D. DR: KAMERON JOB#: [id number] CC:
[2017-05-03 00:11] VITALS: BP 163/95
[2017-05-03] MEDS: NovoLOG Insulin Flexpen SUBQ SCH ×5 (00:21→23:51)
[2017-05-03] MEDS: Morphine Sulfate 2mg/ml Inj IM PRN (00:57)
[2017-05-03] MEDS: Metoprolol Tartrate 5 MG in NS 55 ML IVPB SCH ×2 (02:08→08:24)
[2017-05-03 04:18] VITALS: BP 160/92
[2017-05-03 08:00] VITALS: BP 149/63
--- NOTE | 2017-05-03 08:03 | Infectious Diseases Prog Note ---
Assessment/Plan Assessment/Plan 1A; 1. E. Coli sepsis 2. E. coli UTI 3. leucocytosis improving 4. renal failure improving 5. DM 6. HPN P 1. continue meropenem Subjective ROS Limited/Unobtainable: Yes Constitutional: Reports: other - moaning Allergies: Coded Allergies: PENICILLINS (Verified Allergy, Unknown, 03/18/17) Objective Vital Signs Last 24 Hour Vital Signs Date Time Temp Pulse Resp B/P Pulse Ox O2 Delivery O2 Flow Rate FiO2 05/03/17 04:18 97.1 89 21 160/92 93 Nasal Cannula 05/03/17 04:00 85 05/03/17 02:08 81 114/64 05/03/17 00:11 97.5 88 21 163/95 95 Nasal Cannula 05/03/17 00:00 82 05/02/17 21:30 98.1 95 21 165/92 93 Nasal Cannula 05/02/17 21:05 94 165/69 05/02/17 20:00 81 05/02/17 20:00 98.0 95 21 165/92 92 Nasal Cannula 05/02/17 17:30 97.7 05/02/17 16:30 97.7 05/02/17 16:00 94 05/02/17 16:00 95 19 165/69 93 Room Air 05/02/17 13:17 92 133/78 05/02/17 12:00 92 18 133/78 93 Room Air 05/02/17 12:00 91 05/02/17 08:17 99 151/71 Height (Feet): 5 Height (Inches): 3.00 Weight (Pounds): 173 HEENT: other - O2 by nasal canula Respiratory/Chest: lungs clear Cardiovascular: normal rate Abdomen: soft, non tender, other - NG tube Extremities: no edema, other - contracted left hand Neurologic/Psychiatric: aphasia Laboratory Tests Test 05/03/17 04:00 Sodium Level Pending Potassium Level Pending Chloride Level Pending Carbon Dioxide Level Pending Blood Urea Nitrogen Pending Creatinine Pending Estimat Glomerular Filtration Rate Pending Glucose Level Pending Calcium Level Pending Magnesium Level Pending Total Bilirubin Pending Aspartate Amino Transf (AST/SGOT) Pending Alanine Aminotransferase (ALT/SGPT) Pending Alkaline Phosphatase Pending Pro-B-Type Natriuretic Peptide Pending Total Protein Pending Albumin Pending Globulin Pending Current Medications Medications (Trade) Dose Ordered Sig/Amy Route PRN Reason Start Time Stop Time Status Last Admin Dose Admin Acetaminophen (Tylenol) 650 mg Q4H PRN ORAL Mild Pain (Pain Scale 1-3) 05/01/17 20:00 05/31/17 19:59 05/02/17 15:31 Acetaminophen (Tylenol) 650 mg Q4H PRN RECTAL FEVER (Temp>101) 05/01/17 20:30 05/31/17 20:29 Ascorbic Acid (Vitamin C) 500 mg DAILY ORAL 05/02/17 09:00 06/01/17 08:59 05/02/17 08:18 Aspirin (ASA) 81 mg DAILY NG 05/02/17 09:00 06/01/17 08:59 05/02/17 10:48 Bisacodyl (Dulcolax) 10 mg DAILYPRN PRN RECTAL Constipation 05/01/17 19:37 05/31/17 19:36 Chlorhexidine Gluconate (Milana-Hex 2%) 1 applic DAILY TOPIC 05/03/17 09:00 06/02/17 08:59 Dextrose (Dextrose 50%) STAT PRN IV Hypoglycemia 05/01/17 19:38 05/31/17 19:37 Docusate Sodium (Colace) 100 mg TWICE A DAY ORAL 05/01/17 21:00 05/31/17 20:59 05/02/17 17:00 Ferrous Sulfate (Feosol) 325 mg BID ORAL 05/01/17 21:00 05/31/17 20:59 05/02/17 17:00 Heparin Sodium (Porcine) (Heparin 5000 units/ml) 5,000 units EVERY 12 HOURS SUBQ 05/01/17 21:00 05/31/17 20:59 05/02/17 21:06 Insulin Aspart Q6HR SUBQ 05/02/17 18:00 06/01/17 17:59 05/03/17 05:56 Insulin Detemir (Levemir) 6 units Q12HR SUBQ 05/01/17 21:00 05/31/17 20:59 05/02/17 21:12 Lactulose (Cephulac) 10 gm TIDPRN PRN ORAL Constipation 05/01/17 19:39 05/31/17 19:38 Lansoprazole (Prevacid) 30 mg DAILY GT 05/02/17 09:00 06/01/17 08:59 05/02/17 08:18 Lorazepam (Ativan 2mg/ml 1ml) 1 mg Q4H PRN IV For Anxiety 05/01/17 19:39 05/08/17 19:38 05/02/17 22:01 Meropenem 1 gm/ Sodium Chloride 110 ml @ 220 mls/hr EVERY 12 HOURS IVPB 05/01/17 21:00 05/06/17 20:59 05/02/17 21:05 Metoprolol Tartrate/Sodium Chloride (Lopressor/ Sodium Chloride) 60 ml @ 120 mls/hr Q6H IVPB 05/01/17 20:00 05/31/17 19:59 05/03/17 02:08 Morphine Sulfate (Morphine Sulfate) 1 mg Q4H PRN IM For Pain 4-10 05/01/17 19:00 05/08/17 18:59 05/03/17 00:57 Multivitamins (Multivitamins W/ Minerals 15ml Liquid) 15 ml DAILY NG 05/02/17 09:00 06/01/17 08:59 05/02/17 08:26 Quetiapine Fumarate (SEROquel) 25 mg Q12H PRN ORAL severe agitation 05/01/17 21:00 05/31/17 20:59 Sodium (0.45%NS w/KCl 20mEq 1000ml) 1,000 ml @ 100 mls/hr Q10H IV 05/03/17 20:00 06/02/17 19:59 ARCHANA HARKINS May 03, 2017 08:03
[2017-05-03 08:13] LABS: ALANINE AMINOTRANSFERASE 18 U/L (3-33); ALBUMIN/GLOBULIN RATIO 0.5 (1.0-2.7); ANION GAP 14 (5-15); ASPARTATE AMINO TRANSFERASE 29 U/L (5-40); CALCIUM 8.3 mg/dL (8.6-10.2); CARBON DIOXIDE 23 mEQ/L (20-30); CHLORIDE 112 mEQ/L (98-107); CREATININE 0.9 mg/dL (0.5-0.9); GLOMERULAR FILTRATION RATE > 60 mL/min (>60); HEMOLYSIS 2; MAGNESIUM 1.5 mg/dL (1.7-2.5); POTASSIUM 3.3 mEQ/L (3.4-4.9); SODIUM 149 mEQ/L (135-145); TOTAL PROTEIN 6.8 g/dL (6.6-8.7)
--- NOTE | 2017-05-03 08:56 | General Progress Note ---
Assessment/Plan Problem List: (1) Sepsis ICD Codes: A41.9 - Sepsis, unspecified organism SNOMED: 93434790 (2) UTI (urinary tract infection) ICD Codes: N39.0 - Urinary tract infection, site not specified SNOMED: 78068518, 013908994 Qualifiers: Qualified Codes: N39.0 - Urinary tract infection, site not specified (3) Altered level of consciousness ICD Codes: R40.4 - Transient alteration of awareness SNOMED: 1404966 (4) Elevated troponin ICD Codes: R74.8 - Abnormal levels of other serum enzymes; R65.21 - Severe sepsis with septic shock SNOMED: 085326531, 025213332 (5) ARF (acute renal failure) ICD Codes: N17.9 - Acute kidney failure, unspecified SNOMED: 71474267 Qualifiers: Qualified Codes: N17.9 - Acute kidney failure, unspecified (6) Septic shock ICD Codes: A41.9 - Sepsis, unspecified organism; R65.21 - Severe sepsis with septic shock SNOMED: 01906504 Status: stable, progressing Assessment/Plan ivf adjusted IV metoprolol converted to oral cont ngt repeat swallow eval monitor mental status repeat labs in am abx per id Subjective ROS Limited/Unobtainable: No Constitutional: Reports: weakness HEENT: Reports: no symptoms Cardiovascular: Reports: no symptoms Respiratory: Reports: no symptoms Gastrointestinal/Abdominal: Reports: difficulty swallowing Genitourinary: Reports: no symptoms Neurologic/Psychiatric: Reports: pre-existing deficit Endocrine: Reports: no symptoms Hematologic/Lymphatic: Reports: anemia Allergies: Coded Allergies: PENICILLINS (Verified Allergy, Unknown, 03/18/17) All Systems: reviewed and negative except above Subjective more alert. moaning, follows some simple commands. ?in pain vs anxiety. still with ngt Objective Last 24 Hour Vital Signs Date Time Temp Pulse Resp B/P Pulse Ox O2 Delivery O2 Flow Rate FiO2 05/03/17 08:24 96 149/63 05/03/17 08:00 99.3 96 17 149/63 98 Nasal Cannula 2.0 05/03/17 04:18 97.1 89 21 160/92 93 Nasal Cannula 05/03/17 04:00 85 05/03/17 02:08 81 114/64 05/03/17 00:11 97.5 88 21 163/95 95 Nasal Cannula 05/03/17 00:00 82 05/02/17 21:30 98.1 95 21 165/92 93 Nasal Cannula 05/02/17 21:05 94 165/69 05/02/17 20:00 81 05/02/17 20:00 98.0 95 21 165/92 92 Nasal Cannula 05/02/17 17:30 97.7 05/02/17 16:30 97.7 05/02/17 16:00 94 05/02/17 16:00 95 19 165/69 93 Room Air 05/02/17 13:17 92 133/78 05/02/17 12:00 92 18 133/78 93 Room Air 05/02/17 12:00 91 Intake and Output 05/02/17 05/03/17 19:00 07:00 Intake Total 1421 ml 896 ml Output Total 1100 ml 1500 ml Balance 321 ml -604 ml Free Water 100 ml 100 ml IV Total 1081 ml 506 ml Tube Feeding 180 ml 240 ml Other 60 ml 50 ml Output Urine Total 1100 ml 1500 ml # Voids 1 Laboratory Tests 05/03/17 04:00: Sodium Level 149H, Potassium Level 3.3L, Chloride Level 112H, Carbon Dioxide Level 23, Anion Gap 14, Blood Urea Nitrogen 20, Creatinine 0.9, Estimat Glomerular Filtration Rate > 60, Glucose Level 129H, Calcium Level 8.3L, Magnesium Level 1.5L, Total Bilirubin 0.5, Aspartate Amino Transf (AST/SGOT) 29 , Alanine Aminotransferase (ALT/SGPT) 18, Alkaline Phosphatase 116H, Pro-B-Type Natriuretic Peptide 59802I, Total Protein 6.8, Albumin 2.4L, Globulin 4.4, Albumin/Globulin Ratio 0.5L Height (Feet): 5 Height (Inches): 3.00 Weight (Pounds): 173 Objective General Appearance: WD/WN, lethargic, confused, somnolent Neck: supple Cardiovascular: regular rhythm Respiratory/Chest: lungs clear, normal breath sounds, no respiratory distress Abdomen: normal bowel sounds, non tender, soft, no organomegaly, no mass Neurologic: disoriented KORTNEY DODGE May 03, 2017 08:56
[2017-05-03] MEDS: LORazepam Inj 2mg/ml 1ml IV PRN ×2 (09:27→22:08)
--- NOTE | 2017-05-03 09:33 | Diagnostic Imaging Report ---
Indications: Nasogastric tube placement. Technique: AP view of the abdomen Findings: Comparison: None. Nasogastric tube overlies the region of the stomach. Schroeder catheter, right femoral venous catheter remain in place. Bowel gas pattern maintains unremarkable. Scattered arterial mural calcifications again noted.. Degenerative changes again noted in lumbar spine.. IMPRESSION: Nasogastric tube apparently within acceptable position No other change from 2 days prior.
[2017-05-03] MEDS ORDERED: Tubing IV Secondary IV ONE ×2 (09:38→18:56)
[2017-05-03] MEDS: Docusate 100mg/10ml Liq NG SCH ×2 (10:02→17:29)
[2017-05-03] MEDS: Multivitamins W/Minerals 15 ML UDC NG SCH (10:03)
[2017-05-03] MEDS: Metoprolol 25mg tab ORAL SCH ×2 (10:03→20:41)
[2017-05-03] MEDS: Ascorbic Acid 500mg tab ORAL SCH (10:03)
[2017-05-03] MEDS: Aspirin Baby 81mg NG SCH (10:03)
[2017-05-03] MEDS: Heparin 5000 units/ml inj SUBQ SCH ×2 (10:05→20:42)
[2017-05-03] MEDS: Levemir Flexpen SUBQ SCH ×2 (10:06→20:45)
[2017-05-03] MEDS: Meropenem 1 GM in NS 110 ML IVPB SCH ×2 (10:07→20:40)
[2017-05-03] MEDS: Dyna-Hex 2% Top Sol 8oz TOPIC SCH (10:24)
[2017-05-03 11:58] VITALS: BP 153/69
--- NOTE | 2017-05-03 14:40 | Critical Care Progress Note ---
Assessment/Plan Assessment/Plan IMPRESSION: 1. Pneumonia. 2. Hypoxemia. 3. Evidence of metabolic acidosis. 4. Septic shock. 5. Lactic acidemia. 6. Focal hemiplegia. 7. History of stroke. 8. History of urinary tract infection. 9. Likely acute on chronic renal failure. 10. Electrolyte imbalance. 11. History of diabetes. PLAN follow up acid base as needed monitor airway IV antibiotics noted IV hydration with elevated sodium monitor for aspiration monitor congestion KIRBY care follow up for further changes and intervention fairly labile but seems slightly improved follow up imaging medications/laboratory data/nursing notes reviewed in detail note reviewed and edited care discussed with RN and RT Critical Care - Subjective ROS Limited/Unobtainable: Yes Condition: stable EKG Rhythm: Sinus Rhythm I&O: Intake and Output 05/02/17 05/03/17 19:00 07:00 Intake Total 1421 ml 896 ml Output Total 1100 ml 1500 ml Balance 321 ml -604 ml Free Water 100 ml 100 ml IV Total 1081 ml 506 ml Tube Feeding 180 ml 240 ml Other 60 ml 50 ml Output Urine Total 1100 ml 1500 ml # Voids 1 Critical Care - Objective Last 24 Hour Vital Signs Date Time Temp Pulse Resp B/P Pulse Ox O2 Delivery O2 Flow Rate FiO2 05/03/17 12:00 88 05/03/17 11:58 97.9 98 18 153/69 95 Nasal Cannula 2.0 05/03/17 10:03 96 149/63 05/03/17 08:24 96 149/63 05/03/17 08:00 99.3 96 17 149/63 98 Nasal Cannula 2.0 05/03/17 08:00 76 05/03/17 04:18 97.1 89 21 160/92 93 Nasal Cannula 05/03/17 04:00 85 05/03/17 02:08 81 114/64 05/03/17 00:11 97.5 88 21 163/95 95 Nasal Cannula 05/03/17 00:00 82 05/02/17 21:30 98.1 95 21 165/92 93 Nasal Cannula 05/02/17 21:05 94 165/69 05/02/17 20:00 81 05/02/17 20:00 98.0 95 21 165/92 92 Nasal Cannula 05/02/17 17:30 97.7 05/02/17 16:30 97.7 05/02/17 16:00 94 05/02/17 16:00 95 19 165/69 93 Room Air Labs: Labs Test 05/01/17 04:50 05/02/17 05:44 05/03/17 04:00 White Blood Count 9.0 K/UL (4.8-10.8) 11.3 K/UL (4.8-10.8) Red Blood Count 3.55 M/UL (4.20-5.40) 3.61 M/UL (4.20-5.40) Hemoglobin 8.9 G/DL (12.0-16.0) 8.7 G/DL (12.0-16.0) Hematocrit 28.0 % (37.0-47.0) 28.3 % (37.0-47.0) Mean Corpuscular Volume 79 FL (80-99) 78 FL (80-99) Mean Corpuscular Hemoglobin 25.2 PG (27.0-31.0) 24.2 PG (27.0-31.0) Mean Corpuscular Hemoglobin Concent 31.9 G/DL (32.0-36.0) 30.9 G/DL (32.0-36.0) Red Cell Distribution Width 22.5 % (11.6-14.8) 22.0 % (11.6-14.8) Platelet Count 119 K/UL (150-450) 188 K/UL (150-450) Mean Platelet Volume 7.5 FL (6.5-10.1) 8.4 FL (6.5-10.1) Neutrophils (%) (Auto) 70.6 % (45.0-75.0) 72.9 % (45.0-75.0) Lymphocytes (%) (Auto) 13.3 % (20.0-45.0) 14.7 % (20.0-45.0) Monocytes (%) (Auto) 7.8 % (1.0-10.0) 6.5 % (1.0-10.0) Eosinophils (%) (Auto) 7.2 % (0.0-3.0) 5.4 % (0.0-3.0) Basophils (%) (Auto) 1.1 % (0.0-2.0) 0.5 % (0.0-2.0) Sodium Level 146 mEQ/L (135-145) 148 mEQ/L (135-145) 149 mEQ/L (135-145) Potassium Level 4.5 mEQ/L (3.4-4.9) 3.7 mEQ/L (3.4-4.9) 3.3 mEQ/L (3.4-4.9) Chloride Level 113 mEQ/L (98-107) 112 mEQ/L (98-107) 112 mEQ/L (98-107) Carbon Dioxide Level 17 mEQ/L (20-30) 21 mEQ/L (20-30) 23 mEQ/L (20-30) Anion Gap 16 (5-15) 15 (5-15) 14 (5-15) Blood Urea Nitrogen 31 mg/dL (7-23) 23 mg/dL (7-23) 20 mg/dL (7-23) Creatinine 1.3 mg/dL (0.5-0.9) 1.0 mg/dL (0.5-0.9) 0.9 mg/dL (0.5-0.9) Estimat Glomerular Filtration Rate 40.9 mL/min (>60) 55.3 mL/min (>60) > 60 mL/min (>60) Glucose Level 164 mg/dL (74-106) 131 mg/dL (74-106) 129 mg/dL (74-106) Calcium Level 7.3 mg/dL (8.6-10.2) 8.0 mg/dL (8.6-10.2) 8.3 mg/dL (8.6-10.2) Magnesium Level 1.3 mg/dL (1.7-2.5) 1.5 mg/dL (1.7-2.5) Total Bilirubin 0.5 mg/dL (0.0-1.2) 0.4 mg/dL (0.0-1.2) 0.5 mg/dL (0.0-1.2) Aspartate Amino Transf (AST/SGOT) 43 U/L (5-40) 34 U/L (5-40) 29 U/L (5-40) Alanine Aminotransferase (ALT/SGPT) 17 U/L (3-33) 19 U/L (3-33) 18 U/L (3-33) Alkaline Phosphatase 112 U/L (35-104) 118 U/L (35-104) 116 U/L (35-104) Pro-B-Type Natriuretic Peptide 9577 pg/mL (0-125) 80098 pg/mL (0-125) Total Protein 5.8 g/dL (6.6-8.7) 6.4 g/dL (6.6-8.7) 6.8 g/dL (6.6-8.7) Albumin 1.6 g/dL (3.5-5.2) 2.2 g/dL (3.5-5.2) 2.4 g/dL (3.5-5.2) Globulin 4.2 g/dL 4.2 g/dL 4.4 g/dL Albumin/Globulin Ratio 0.3 (1.0-2.7) 0.5 (1.0-2.7) 0.5 (1.0-2.7) Ammonia 27 umol/L (11-51) Troponin I < 0.30 ng/mL (<=0.30) Objective: GENERAL: A well-developed female. on o2; NAD NECK: Supple. No adenopathy. LUNGS: With reduced breath sounds. reduced rhonchi with reduced breath sounds. CARDIOVASCULAR: S1 and S2. Regular rate and rhythm without murmur, rubs, or gallops. ABDOMEN: Soft and nontender. no HSM; no distention EXTREMITIES: No cyanosis or clubbing. No edema. NEUROLOGIC: Left-sided hemiplegia. SKIN: Exam noted and reviewed. Accucheck: 157 MASSIEL SPENCER May 03, 2017 14:40
[2017-05-03] MEDS ORDERED: KCl 10% 40mEq/30ml liquid NG ONE (16:00)
[2017-05-03 16:03] VITALS: BP 146/67
[2017-05-03 20:00] VITALS: BP 163/82
[2017-05-03] MEDS ORDERED: 1/2NS w/KCl 20mEq 1000ml 1,000 ML IV SCH (20:00)
--- NOTE | 2017-05-03 23:00 | Consultation ---
DATE OF CONSULTATION: 04/27/2017 LATE ENTRY CARDIOLOGY CONSULTATION: CONSULTING PHYSICIAN: William Mckeon M.D. REQUESTING PHYSICIAN: Francis Jones M.D. REASON FOR CONSULTATION: Tachyarrhythmia. HISTORY OF PRESENT ILLNESS: This is a 67-year-old female. She resides at a long term facility. She was well this morning, but subsequently noticed to have a low blood pressure, altered mentation, and lethargy. She was transferred by 911 to the emergency room for evaluation. There were no antecedent complaints of chest pain, nausea, vomiting, shortness of breath, or diarrhea. There were no noted aggravating factors based on reports from the long term staff. In the emergency room, the patient has a blood pressure of 80/46, heart rate 128, and respiratory rate 18. She was given fluid challenges and I have been asked to assist with further care. PAST MEDICAL HISTORY: 1. Type 2 diabetes mellitus. 2. Hypertensive heart disease. 3. Cerebrovascular disease with left hemiparesis. 4. Paroxysmal atrial ectopy. 5. Chronic kidney disease. ALLERGIES: Include penicillin. SOCIAL HISTORY: Negative for smoking, alcohol, or substance abuse based on available data. MEDICATIONS: Prior to admission, reviewed and reconciled. REVIEW OF SYSTEMS: Review of systems is unobtainable from the patient. Pertinent data from prior records, prior hospitalizations, and long term chart is reviewed x20 minutes and outlined above. PHYSICAL EXAMINATION: VITAL SIGNS: Vitals are as noted above. HEENT: Temporal wasting. Pale conjunctivae. Dry mucous membranes. Oropharynx is otherwise clear. NECK: Supple. Thyroid is midline. No thyromegaly. CHEST: Some accessory muscle use noted. No wheezing. LUNGS: With clear breath sounds. CARDIAC: Regular rhythm. Rapid rate. Normal S1 and S2 with a fourth heart sound. ABDOMEN: Soft and nontender. EXTREMITIES: No edema. NEUROLOGICAL: Left-sided weakness is noted. Central line site placed in the emergency room is noted in the right femoral region and there is no bleeding. DIAGNOSTIC DATA: EKG, sinus tachycardia with nonspecific ST-change. Chest x-ray, no acute process. LABORATORY DATA: Lactic acid is 2.9. Troponin is 0.46. Sodium is 134, potassium 4.3, bicarbonate 13, BUN 59, and creatinine 4.2. Albumin is 2.5. White count is 18.9 and hemoglobin 10.6. IMPRESSION: 1. Sepsis shock. 2. Urinary tract infection. 3. Acute myocardial infarction. 4. Leukocytosis. 5. Microcytic anemia. 6. Lactic acidosis. 7. Severe protein-calorie malnutrition. 8. Metabolic acidosis. 9. Acute renal failure. 10. Critical and guarded. PLAN: 1. Intensive care unit care. 2. Volume resuscitation, may need pressors. 3. Broad-spectrum antibiotics and not initiated beta-blockade in view of hypotension at this time. 4. Antiplatelet therapy. 5. Deep venous thrombosis prophylaxis. 6. Serial troponin and CK enzymes. 7. Insulin coverage by sliding scale. 8. Critical and guarded. William Mckeon M.D. DR: Robi JOB#: [id number] CC:
--- NOTE | 2017-05-03 23:00 | Progress Note ---
DATE: 05/03/2017 CARDIOLOGY PROGRESS NOTE: SUBJECTIVE: The patient is tolerating feedings. She is more alert. She still is confused. She still has frequent episodes of moaning. She has been treated for possible pain. OBJECTIVE: VITAL SIGNS: Blood pressure is 149/63, pulse rate 96, respiratory rate 18, and afebrile. Monitored rhythm sinus and sinus tachycardia. LUNGS: Good breath sounds. HEART: Regular rhythm and rate. Normal S1 and S2. ABDOMEN: Soft. EXTREMITIES: No edema. LABORATORY DATA: Sodium is 149, potassium 3.3, bicarbonate 23, chloride 112, BUN 20, and creatinine 0.9. Magnesium is 1.5. Pro-natriuretic peptide is 15,000. IMPRESSION: 1. Acute myocardial infarction. 2. Sepsis with shock recovered. 3. Hypomagnesemia. 4. Hypokalemia. 5. Dehydration. 6. Hypernatremia. 7. Hyperchloremia. 8. Paroxysmal sinus tachycardia. 9. Urinary tract infection. 10. Acute on chronic renal failure. 11. Dysphagia. 12. Cerebrovascular accident with left hemiparesis. PLAN: 1. Hypotonic hydration. 2. Replace potassium. 3. Intravenous magnesium. 4. Antimicrobials. 5. Respiratory hygiene. 6. Continue beta-blockade with transition from intravenous to oral dosing. 7. Maintain anti-platelet therapy. 8. Deep venous thrombosis prophylaxis. 9. Remains with serious condition and guarded prognosis. William Mckeon M.D. DR: Robi JOB#: [id number] CC:
[2017-05-04] VITALS: BP 161/96
[2017-05-04 04:00] VITALS: BP 169/76
[2017-05-04] MEDS: NovoLOG Insulin Flexpen SUBQ SCH ×3 (06:00→18:54)
[2017-05-04 06:12] LABS: BASOPHILS % (AUTO) 0.6 % (0.0-2.0); EOSINOPHILS % (AUTO) 4.9 % (0.0-3.0); LYMPHOCYTES % (AUTO) 16.9 % (20.0-45.0); MEAN CORPUSCULAR HEMOGLOBIN 24.7 PG (27.0-31.0); MEAN CORPUSCULAR HGB CONC 31.3 G/DL (32.0-36.0); MEAN CORPUSCULAR VOLUME 79 FL (80-99); MEAN PLATELET VOLUME 7.7 FL (6.5-10.1); MONOCYTES % (AUTO) 8.9 % (1.0-10.0); NEUTROPHILS % (AUTO) 68.7 % (45.0-75.0); PLATELET COUNT 275 K/UL (150-450); RED BLOOD COUNT 3.82 M/UL (4.20-5.40); RED CELL DISTRIBUTION WIDTH 22.1 % (11.6-14.8); WHITE BLOOD COUNT 10.5 K/UL (4.8-10.8)
[2017-05-04 06:20] LABS: ALANINE AMINOTRANSFERASE 13 U/L (3-33); ALBUMIN/GLOBULIN RATIO 0.4 (1.0-2.7); ANION GAP 16 (5-15); ASPARTATE AMINO TRANSFERASE 21 U/L (5-40); CALCIUM 8.4 mg/dL (8.6-10.2); CARBON DIOXIDE 24 mEQ/L (20-30); CHLORIDE 105 mEQ/L (98-107); CREATININE 0.7 mg/dL (0.5-0.9); GLOMERULAR FILTRATION RATE > 60 mL/min (>60); HEMOLYSIS 1; POTASSIUM 3.5 mEQ/L (3.4-4.9); SODIUM 145 mEQ/L (135-145); TOTAL PROTEIN 6.6 g/dL (6.6-8.7)
[2017-05-04 07:46] VITALS: BP 111/52
--- NOTE | 2017-05-04 08:49 | Critical Care Progress Note ---
Assessment/Plan Assessment/Plan IMPRESSION: 1. Pneumonia. 2. Hypoxemia. 3. Evidence of metabolic acidosis. 4. Septic shock. 5. Lactic acidemia. 6. Focal hemiplegia. 7. History of stroke. 8. History of urinary tract infection. 9. Likely acute on chronic renal failure. 10. Electrolyte imbalance. 11. History of diabetes. PLAN follow up acid base as needed and monitor for change monitor airway for now stable IV antibiotics noted IV hydration with caution monitor for aspiration monitor congestion KIRBY care follow up for further changes and intervention stable at present follow up imaging for clearing medications/laboratory data/nursing notes reviewed in detail note reviewed and edited care discussed with RN and RT Critical Care - Subjective Interval Events: minimal congestion on low flow oxygen ROS Limited/Unobtainable: Yes Condition: stable EKG Rhythm: Sinus Rhythm I&O: Intake and Output 05/03/17 05/04/17 19:00 07:00 Intake Total 1010 ml 1065 ml Output Total 2500 ml 2250 ml Balance -1490 ml -1185 ml Free Water 150 ml 50 ml IV Total 660 ml 785 ml Tube Feeding 200 ml 180 ml Other 50 ml Output Urine Total 2500 ml 2250 ml # Voids 2 # Bowel Movements 1 Critical Care - Objective Last 24 Hour Vital Signs Date Time Temp Pulse Resp B/P Pulse Ox O2 Delivery O2 Flow Rate FiO2 05/04/17 07:46 97.7 80 18 111/52 91 Nasal Cannula 2.0 05/04/17 04:00 90 05/04/17 04:00 97.8 87 18 169/76 96 Nasal Cannula 2.0 05/04/17 00:00 98.2 90 18 161/96 93 Nasal Cannula 2.0 05/04/17 00:00 86 05/03/17 23:28 Nasal Cannula 2.0 05/03/17 23:27 95 Nasal Cannula 2.0 05/03/17 20:41 94 163/82 05/03/17 20:00 97.6 94 18 163/82 95 Nasal Cannula 2.0 05/03/17 20:00 97 05/03/17 16:03 97.7 83 17 146/67 98 Nasal Cannula 2.0 05/03/17 16:00 86 05/03/17 12:00 88 05/03/17 11:58 97.9 98 18 153/69 95 Nasal Cannula 2.0 05/03/17 10:03 96 149/63 Labs: Labs Test 05/02/17 05:44 05/03/17 04:00 05/04/17 04:25 White Blood Count 11.3 K/UL (4.8-10.8) 10.5 K/UL (4.8-10.8) Red Blood Count 3.61 M/UL (4.20-5.40) 3.82 M/UL (4.20-5.40) Hemoglobin 8.7 G/DL (12.0-16.0) 9.4 G/DL (12.0-16.0) Hematocrit 28.3 % (37.0-47.0) 30.2 % (37.0-47.0) Mean Corpuscular Volume 78 FL (80-99) 79 FL (80-99) Mean Corpuscular Hemoglobin 24.2 PG (27.0-31.0) 24.7 PG (27.0-31.0) Mean Corpuscular Hemoglobin Concent 30.9 G/DL (32.0-36.0) 31.3 G/DL (32.0-36.0) Red Cell Distribution Width 22.0 % (11.6-14.8) 22.1 % (11.6-14.8) Platelet Count 188 K/UL (150-450) 275 K/UL (150-450) Mean Platelet Volume 8.4 FL (6.5-10.1) 7.7 FL (6.5-10.1) Neutrophils (%) (Auto) 72.9 % (45.0-75.0) 68.7 % (45.0-75.0) Lymphocytes (%) (Auto) 14.7 % (20.0-45.0) 16.9 % (20.0-45.0) Monocytes (%) (Auto) 6.5 % (1.0-10.0) 8.9 % (1.0-10.0) Eosinophils (%) (Auto) 5.4 % (0.0-3.0) 4.9 % (0.0-3.0) Basophils (%) (Auto) 0.5 % (0.0-2.0) 0.6 % (0.0-2.0) Sodium Level 148 mEQ/L (135-145) 149 mEQ/L (135-145) 145 mEQ/L (135-145) Potassium Level 3.7 mEQ/L (3.4-4.9) 3.3 mEQ/L (3.4-4.9) 3.5 mEQ/L (3.4-4.9) Chloride Level 112 mEQ/L (98-107) 112 mEQ/L (98-107) 105 mEQ/L (98-107) Carbon Dioxide Level 21 mEQ/L (20-30) 23 mEQ/L (20-30) 24 mEQ/L (20-30) Anion Gap 15 (5-15) 14 (5-15) 16 (5-15) Blood Urea Nitrogen 23 mg/dL (7-23) 20 mg/dL (7-23) 12 mg/dL (7-23) Creatinine 1.0 mg/dL (0.5-0.9) 0.9 mg/dL (0.5-0.9) 0.7 mg/dL (0.5-0.9) Estimat Glomerular Filtration Rate 55.3 mL/min (>60) > 60 mL/min (>60) > 60 mL/min (>60) Glucose Level 131 mg/dL (74-106) 129 mg/dL (74-106) 151 mg/dL (74-106) Calcium Level 8.0 mg/dL (8.6-10.2) 8.3 mg/dL (8.6-10.2) 8.4 mg/dL (8.6-10.2) Total Bilirubin 0.4 mg/dL (0.0-1.2) 0.5 mg/dL (0.0-1.2) 0.5 mg/dL (0.0-1.2) Aspartate Amino Transf (AST/SGOT) 34 U/L (5-40) 29 U/L (5-40) 21 U/L (5-40) Alanine Aminotransferase (ALT/SGPT) 19 U/L (3-33) 18 U/L (3-33) 13 U/L (3-33) Alkaline Phosphatase 118 U/L (35-104) 116 U/L (35-104) 122 U/L (35-104) Ammonia 27 umol/L (11-51) Troponin I < 0.30 ng/mL (<=0.30) Total Protein 6.4 g/dL (6.6-8.7) 6.8 g/dL (6.6-8.7) 6.6 g/dL (6.6-8.7) Albumin 2.2 g/dL (3.5-5.2) 2.4 g/dL (3.5-5.2) 2.0 g/dL (3.5-5.2) Globulin 4.2 g/dL 4.4 g/dL 4.6 g/dL Albumin/Globulin Ratio 0.5 (1.0-2.7) 0.5 (1.0-2.7) 0.4 (1.0-2.7) Magnesium Level 1.5 mg/dL (1.7-2.5) Pro-B-Type Natriuretic Peptide 04633 pg/mL (0-125) Objective: GENERAL: A well-developed female. on o2; NAD NECK: Supple. No adenopathy. LUNGS: With reduced breath sounds. occasional rhonchi with reduced breath sounds. CARDIOVASCULAR: S1 and S2. Regular rate and rhythm without murmur, rubs, or gallops. ABDOMEN: Soft and nontender. no HSM; no distention EXTREMITIES: No cyanosis or clubbing. No edema. NEUROLOGIC: Left-sided hemiplegia. without change SKIN: Exam noted and reviewed. Accucheck: MASSIEL BLACKBURN May 04, 2017 08:49
[2017-05-04] MEDS: Multivitamins W/Minerals 15 ML UDC NG SCH (09:00)
--- NOTE | 2017-05-04 09:15 | Infectious Diseases Prog Note ---
Assessment/Plan Assessment/Plan 1A; 1. E. Coli sepsis 2. E. coli UTI 3. leucocytosis improving 4. renal failure improving 5. DM 6. HPN P 1. continue meropenem Subjective ROS Limited/Unobtainable: Yes Neurologic: Reports: confusion, other - on right hand restraint Allergies: Coded Allergies: PENICILLINS (Verified Allergy, Unknown, 03/18/17) Objective Vital Signs Last 24 Hour Vital Signs Date Time Temp Pulse Resp B/P Pulse Ox O2 Delivery O2 Flow Rate FiO2 05/04/17 07:46 97.7 80 18 111/52 91 Nasal Cannula 2.0 05/04/17 04:00 90 05/04/17 04:00 97.8 87 18 169/76 96 Nasal Cannula 2.0 05/04/17 00:00 98.2 90 18 161/96 93 Nasal Cannula 2.0 05/04/17 00:00 86 05/03/17 23:28 Nasal Cannula 2.0 05/03/17 23:27 95 Nasal Cannula 2.0 05/03/17 20:41 94 163/82 05/03/17 20:00 97.6 94 18 163/82 95 Nasal Cannula 2.0 05/03/17 20:00 97 05/03/17 16:03 97.7 83 17 146/67 98 Nasal Cannula 2.0 05/03/17 16:00 86 05/03/17 12:00 88 05/03/17 11:58 97.9 98 18 153/69 95 Nasal Cannula 2.0 05/03/17 10:03 96 149/63 Height (Feet): 5 Height (Inches): 3.00 Weight (Pounds): 173 General Appearance: no acute distress HEENT: mucous membranes moist Respiratory/Chest: lungs clear Cardiovascular: normal rate Abdomen: soft, non tender, other - NG tube feeding Extremities: no edema, other - contracted left hand Neurologic/Psychiatric: aphasia, other - opens eyes Laboratory Tests Test 05/04/17 04:25 White Blood Count 10.5 K/UL (4.8-10.8) Red Blood Count 3.82 M/UL (4.20-5.40) L Hemoglobin 9.4 G/DL (12.0-16.0) L Hematocrit 30.2 % (37.0-47.0) L Mean Corpuscular Volume 79 FL (80-99) L Mean Corpuscular Hemoglobin 24.7 PG (27.0-31.0) L Mean Corpuscular Hemoglobin Concent 31.3 G/DL (32.0-36.0) L Red Cell Distribution Width 22.1 % (11.6-14.8) H Platelet Count 275 K/UL (150-450) Mean Platelet Volume 7.7 FL (6.5-10.1) Neutrophils (%) (Auto) 68.7 % (45.0-75.0) Lymphocytes (%) (Auto) 16.9 % (20.0-45.0) L Monocytes (%) (Auto) 8.9 % (1.0-10.0) Eosinophils (%) (Auto) 4.9 % (0.0-3.0) H Basophils (%) (Auto) 0.6 % (0.0-2.0) Sodium Level 145 mEQ/L (135-145) Potassium Level 3.5 mEQ/L (3.4-4.9) Chloride Level 105 mEQ/L (98-107) Carbon Dioxide Level 24 mEQ/L (20-30) Anion Gap 16 (5-15) H Blood Urea Nitrogen 12 mg/dL (7-23) Creatinine 0.7 mg/dL (0.5-0.9) Estimat Glomerular Filtration Rate > 60 mL/min (>60) Glucose Level 151 mg/dL (74-106) H Calcium Level 8.4 mg/dL (8.6-10.2) L Total Bilirubin 0.5 mg/dL (0.0-1.2) Aspartate Amino Transf (AST/SGOT) 21 U/L (5-40) Alanine Aminotransferase (ALT/SGPT) 13 U/L (3-33) Alkaline Phosphatase 122 U/L (35-104) H Total Protein 6.6 g/dL (6.6-8.7) Albumin 2.0 g/dL (3.5-5.2) L Globulin 4.6 g/dL Albumin/Globulin Ratio 0.4 (1.0-2.7) L Current Medications Medications (Trade) Dose Ordered Sig/Amy Route PRN Reason Start Time Stop Time Status Last Admin Dose Admin Acetaminophen (Tylenol) 650 mg Q4H PRN ORAL Mild Pain (Pain Scale 1-3) 05/01/17 20:00 7/23/17 19:59 05/02/17 15:31 Acetaminophen (Tylenol) 650 mg Q4H PRN RECTAL FEVER (Temp>101) 05/01/17 20:30 05/31/17 20:29 Ascorbic Acid (Vitamin C) 500 mg DAILY ORAL 05/02/17 09:00 06/01/17 08:59 05/03/17 10:03 Aspirin (ASA) 81 mg DAILY NG 05/02/17 09:00 06/01/17 08:59 05/03/17 10:03 Bisacodyl (Dulcolax) 10 mg DAILYPRN PRN RECTAL Constipation 05/01/17 19:37 05/31/17 19:36 Chlorhexidine Gluconate (Milana-Hex 2%) 1 applic DAILY TOPIC 05/03/17 09:00 06/02/17 08:59 05/03/17 10:24 Dextrose (D5W 1000ml) 1,000 ml @ 75 mls/hr [id number] IV 05/03/17 09:00 06/02/17 08:59 05/03/17 22:12 Dextrose (Dextrose 50%) STAT PRN IV Hypoglycemia 05/01/17 19:38 05/31/17 19:37 Docusate Sodium 100 mg 100 mg TWICE A DAY NG 05/03/17 09:00 06/02/17 08:59 05/03/17 17:29 Ferrous Sulfate (Feosol) 325 mg BID ORAL 05/01/17 21:00 05/31/17 20:59 05/03/17 17:29 Heparin Sodium (Porcine) (Heparin 5000 units/ml) 5,000 units EVERY 12 HOURS SUBQ 05/01/17 21:00 05/31/17 20:59 05/03/17 20:42 Insulin Aspart (NovoLOG) Q6HR SUBQ 05/02/17 18:00 06/01/17 17:59 05/03/17 23:51 Insulin Detemir (Levemir) 6 units Q12HR SUBQ 05/01/17 21:00 05/31/17 20:59 05/03/17 20:45 Lactulose (Cephulac) 10 gm TIDPRN PRN ORAL Constipation 05/01/17 19:39 05/31/17 19:38 Lansoprazole (Prevacid) 30 mg DAILY GT 05/02/17 09:00 06/01/17 08:59 05/03/17 10:02 Lorazepam (Ativan 2mg/ml 1ml) 1 mg Q4H PRN IV For Anxiety 05/01/17 19:39 05/08/17 19:38 05/03/17 22:08 Magnesium Sulfate (Magnesium Sulfate 1gm/100ml) 100 ml @ 100 mls/hr Q1H IVPB 05/04/17 10:00 05/04/17 11:59 Meropenem/Sodium Chloride (Merrem/Sodium Chloride) 110 ml @ 220 mls/hr EVERY 12 HOURS IVPB 05/01/17 21:00 05/06/17 20:59 05/03/17 20:40 Metoprolol Tartrate 50 mg 50 mg Q12HR ORAL 05/04/17 09:00 06/03/17 08:59 Morphine Sulfate (Morphine Sulfate) 1 mg Q4H PRN IVP For Pain 4-10 05/03/17 15:00 05/10/17 14:59 Multivitamins (Multivitamins W/ Minerals 15ml Liquid) 15 ml DAILY NG 05/02/17 09:00 06/01/17 08:59 05/03/17 10:03 Quetiapine Fumarate (SEROquel) 25 mg Q12H PRN ORAL severe agitation 05/01/17 21:00 05/31/17 20:59 ARCHANA HARKINS May 04, 2017 09:14
--- NOTE | 2017-05-04 09:49 | Diagnostic Imaging Report ---
Indication: Post nasogastric tube placement Technique: Supine view of the abdomen Comparison: 05/03/2017 Findings: Stable satisfactory position nasogastric tube, tip projected at the level gastric body, proximal port within the gastric fundus. There prominent gas-filled but not frankly distended small bowel loops. Right groin central venous catheter is no longer visible. There is a Schroeder catheter. No unusual masses or calcifications Impression: Satisfactory nasogastric tube placement No acute abnormalities Nursing unit notified at the time of dictation
[2017-05-04] MEDS: Heparin 5000 units/ml inj SUBQ SCH ×2 (10:02→21:05)
[2017-05-04] MEDS: Docusate 100mg/10ml Liq NG SCH ×2 (10:03→17:22)
[2017-05-04] MEDS: Ascorbic Acid 500mg tab ORAL SCH (10:05)
[2017-05-04] MEDS: Aspirin Baby 81mg NG SCH (10:05)
[2017-05-04] MEDS: Dyna-Hex 2% Top Sol 8oz TOPIC SCH (10:06)
[2017-05-04] MEDS: Metoprolol 50mg tab ORAL SCH ×2 (10:07→21:04)
[2017-05-04] MEDS: Levemir Flexpen SUBQ SCH ×2 (10:17→21:07)
--- NOTE | 2017-05-04 10:42 | Diagnostic Imaging Report ---
Indication: SOB Technique: One view of the chest Comparison: 04/30/2017 Findings: Interim placement of a nasogastric tube, tip projecting beyond the edge of the image, presumably in good position. There is a small left-sided pleural effusion, new since prior exam. The right lung and pleural space, left upper lung link are clear. Heart is mildly enlarged. Previously demonstrated parenchymal disease on the right has resolved Impression: Borderline cardiomegaly Small left pleural effusion, new since 04/30/2017 Interim resolution of previously demonstrated right-sided interstitial infiltrates
--- NOTE | 2017-05-04 10:54 | Pre-Procedure Note/Attestation ---
Pre-Procedure Note/Attestation Complete Prior to Procedure Planned Procedure: not applicable Procedure Narrative: PICC Indications for Procedure Pre-Operative Diagnosis: Needs chcf IV access Attestation I attest that I discussed the nature of the procedure; its benefits; risks and complications; and alternatives (and the risks and benefits of such alternatives ), prior to the procedure, with the patient (or the patient's legal customer operations representative). I attest that, if there was a reasonable possibility of needing a blood transfusion, the patient (or the patient's legal customer operations representative) was given the [facility] standardized written summary, pursuant to the [place] Blood Safety Act ([place] Health and Safety Code # 1645, as amended). I attest that I re-evaluated the patient just prior to the surgery and that there has been no change in the patient's H&P, except as documented below: Discussed with sister by phone SAHIL HERRERA M.D. May 04, 2017 10:54
--- NOTE | 2017-05-04 11:08 | Radiology PICC Progress Note ---
Radiology PICC Progress Note Consent Obtained: yes Upper Extremity: right Vein: basilic Complications: none SAHIL HERRERA M.D. May 04, 2017 11:07
[2017-05-04 11:58] VITALS: BP 115/44
[2017-05-04] MEDS: Meropenem 1 GM in NS 110 ML IVPB SCH (15:23)
[2017-05-04 15:33] VITALS: BP 131/51
--- NOTE | 2017-05-04 15:34 | Diagnostic Imaging Report ---
Indications: Needs long-term IV access Technique: Procedure performed at bedside. Procedural timeout performed. Ultrasound confirms patent compressible right basilic vein. Total sterile technique, including sterile probe cover and sterile gel, sterile gloves, hand hygiene, hat, mask,, sterile gown, large sterile drape, and preparation with 2% chlorhexidine utilized. Local anesthesia with 1% lidocaine. Under real-time ultrasound guidance, puncture right basilic vein using 21-gauge needle, passage 0.018 guidewire, exchange for 5 Haitian peel-away sheath. 5 Haitian Bard dual-lumen power PICC cut to 36 cm. It was inserted through the peel-away sheath. Peel-away sheath and guidewire removed. Catheter fixed to the skin. Both catheter ports aspirated and flushed. Patient tolerated procedure well, without immediate complication. Followup chest x-ray obtained, documents catheter tip position at the innominate venous confluence Impression: Successful bedside placement of right arm PICC under sonographic guidance, as described above.
[2017-05-04 20:00] VITALS: BP 157/56
--- NOTE | 2017-05-04 23:31 | Progress Note ---
DATE: 05/04/2017 CARDIOLOGY PROGRESS NOTE SUBJECTIVE: The patient is status post PICC line placement without complication in the right upper extremity. The patient continues to improve, in no distress and no complaints noted by staff. OBJECTIVE: VITAL SIGNS: Blood pressure 111/52, pulse 88, respiratory rate 18 and afebrile. HEENT: Conjunctivae are pink. Oropharynx clear. NECK: Supple. LUNGS: With few rhonchi. CARDIAC: Regular rhythm and rate. Normal S1 and S2 with a fourth heart sound. ABDOMEN: Soft. EXTREMITIES: Trace edema. NEUROLOGIC: Left hemiparesis. LABORATORY AND DIAGNOSTIC DATA: White count 10.5 and hemoglobin 9.4. Sodium 145, potassium 3.5, BUN 12, and creatinine 0.7. Albumin 2.0. IMPRESSION: 1. Acute myocardial infarction. 2. Hypomagnesemia. 3. Dehydration. 4. Hypernatremia, improved. 5. Poor peripheral intravenous access. 6. Status post respiratory failure. 7. Escherichia coli, sepsis and urinary tract infection. 8. Hypertensive heart disease. 9. Severe protein-calorie malnutrition. 10. Acute on chronic diastolic congestive heart failure. PLAN: 1. Replace electrolytes. 2. Continue free water repletion. 3. Antimicrobials by central access. 4. DVT and stress ulcer prophylaxis. 5. Respiratory hygiene. 6. Continue beta-blockade, anti-platelet therapy and statin drug use. 7. Observe for complications of therapy including bleeding. William Mckeon M.D. DR: BHAVESH JOB#: [id number] CC:
[2017-05-05] MEDS: NovoLOG Insulin Flexpen SUBQ SCH ×5 (00:17→23:52)
[2017-05-05 00:36] VITALS: BP 139/68
[2017-05-05] MEDS: Meropenem 1 GM in NS 110 ML IVPB SCH ×2 (03:00→17:58)
[2017-05-05 04:00] VITALS: BP 142/60
[2017-05-05 08:00] VITALS: BP 150/73
--- NOTE | 2017-05-05 08:13 | Critical Care Progress Note ---
Assessment/Plan Assessment/Plan IMPRESSION: 1. Pneumonia. 2. Hypoxemia. 3. Evidence of metabolic acidosis. 4. Septic shock. 5. Lactic acidemia. 6. Focal hemiplegia. 7. History of stroke. 8. History of urinary tract infection. 9. Likely acute on chronic renal failure. 10. Electrolyte imbalance. 11. History of diabetes. PLAN monitor for change monitor airway for now stable antibiotics noted monitor for aspiration monitor congestion KIRBY care follow up for further changes and intervention stable at present follow up imaging nearly fully cleared dc planning medications/laboratory data/nursing notes reviewed in detail note reviewed and edited care discussed with RN and RT Critical Care - Subjective ROS Limited/Unobtainable: Yes EKG Rhythm: Sinus Rhythm I&O: Intake and Output 05/04/17 05/05/17 19:00 07:00 Intake Total 650 ml 1793 ml Output Total 275 ml 600 ml Balance 375 ml 1193 ml Free Water 100 ml 50 ml IV Total 410 ml 1503 ml Tube Feeding 140 ml 240 ml Output Urine Total 275 ml 600 ml Critical Care - Objective Last 24 Hour Vital Signs Date Time Temp Pulse Resp B/P Pulse Ox O2 Delivery O2 Flow Rate FiO2 05/05/17 07:35 Nasal Cannula 2.0 05/05/17 07:34 97 Nasal Cannula 2.0 05/05/17 04:00 97.8 82 16 142/60 98 Nasal Cannula 2.0 05/05/17 04:00 75 05/05/17 00:36 98.7 74 20 139/68 98 Nasal Cannula 2.0 05/05/17 00:00 75 05/04/17 21:04 83 157/56 05/04/17 20:00 81 05/04/17 20:00 97.9 83 18 157/56 98 Nasal Cannula 2.0 05/04/17 16:00 69 05/04/17 15:33 97.1 63 18 131/51 98 Nasal Cannula 2.0 05/04/17 12:00 71 05/04/17 11:58 97.9 68 18 115/44 94 Nasal Cannula 2.0 05/04/17 10:07 80 111/52 Labs: Labs Test 05/03/17 04:00 05/04/17 04:25 Sodium Level 149 mEQ/L (135-145) 145 mEQ/L (135-145) Potassium Level 3.3 mEQ/L (3.4-4.9) 3.5 mEQ/L (3.4-4.9) Chloride Level 112 mEQ/L (98-107) 105 mEQ/L (98-107) Carbon Dioxide Level 23 mEQ/L (20-30) 24 mEQ/L (20-30) Anion Gap 14 (5-15) 16 (5-15) Blood Urea Nitrogen 20 mg/dL (7-23) 12 mg/dL (7-23) Creatinine 0.9 mg/dL (0.5-0.9) 0.7 mg/dL (0.5-0.9) Estimat Glomerular Filtration Rate > 60 mL/min (>60) > 60 mL/min (>60) Glucose Level 129 mg/dL (74-106) 151 mg/dL (74-106) Calcium Level 8.3 mg/dL (8.6-10.2) 8.4 mg/dL (8.6-10.2) Magnesium Level 1.5 mg/dL (1.7-2.5) Total Bilirubin 0.5 mg/dL (0.0-1.2) 0.5 mg/dL (0.0-1.2) Aspartate Amino Transf (AST/SGOT) 29 U/L (5-40) 21 U/L (5-40) Alanine Aminotransferase (ALT/SGPT) 18 U/L (3-33) 13 U/L (3-33) Alkaline Phosphatase 116 U/L (35-104) 122 U/L (35-104) Pro-B-Type Natriuretic Peptide 70043 pg/mL (0-125) Total Protein 6.8 g/dL (6.6-8.7) 6.6 g/dL (6.6-8.7) Albumin 2.4 g/dL (3.5-5.2) 2.0 g/dL (3.5-5.2) Globulin 4.4 g/dL 4.6 g/dL Albumin/Globulin Ratio 0.5 (1.0-2.7) 0.4 (1.0-2.7) White Blood Count 10.5 K/UL (4.8-10.8) Red Blood Count 3.82 M/UL (4.20-5.40) Hemoglobin 9.4 G/DL (12.0-16.0) Hematocrit 30.2 % (37.0-47.0) Mean Corpuscular Volume 79 FL (80-99) Mean Corpuscular Hemoglobin 24.7 PG (27.0-31.0) Mean Corpuscular Hemoglobin Concent 31.3 G/DL (32.0-36.0) Red Cell Distribution Width 22.1 % (11.6-14.8) Platelet Count 275 K/UL (150-450) Mean Platelet Volume 7.7 FL (6.5-10.1) Neutrophils (%) (Auto) 68.7 % (45.0-75.0) Lymphocytes (%) (Auto) 16.9 % (20.0-45.0) Monocytes (%) (Auto) 8.9 % (1.0-10.0) Eosinophils (%) (Auto) 4.9 % (0.0-3.0) Basophils (%) (Auto) 0.6 % (0.0-2.0) Objective: GENERAL: A well-developed female. on o2; NAD NECK: Supple. No adenopathy. LUNGS: reduced breath sounds. reduced rhonchi no wheeze CARDIOVASCULAR: S1 and S2. Regular rate and rhythm without murmur, rubs, or gallops. ABDOMEN: Soft and nontender. no HSM; no distention EXTREMITIES: No cyanosis or clubbing. No edema. NEUROLOGIC: Left-sided hemiplegia. without change SKIN: Exam noted and reviewed. Accucheck: 156 MASSIEL SPENCER May 05, 2017 08:13
--- NOTE | 2017-05-05 08:33 | Diagnostic Imaging Report ---
Indications: Nasogastric tube placement Technique: Portable supine AP abdomen Findings: Comparison: 05/04/17 Tip and proximal side port of nasogastric tube are present in the abdominal left upper quadrant, in the expected location of the stomach, somewhat more proximal in position than on previous exam. Proximal port may correspond to the level of esophagogastric junction. Bowel gas pattern remains unremarkable. Degenerative changes again noted in lower lumbar spine. IMPRESSION: Nasogastric tube tip likely in stomach. Proximal side port may reside within the esophagogastric junction. Recommend advancement 5 cm. No other change
[2017-05-05] MEDS: Multivitamins W/Minerals 15 ML UDC NG SCH (09:00)
[2017-05-05] MEDS: Heparin 5000 units/ml inj SUBQ SCH ×2 (10:41→20:51)
[2017-05-05] MEDS: Levemir Flexpen SUBQ SCH ×2 (10:44→20:51)
[2017-05-05] MEDS: Dyna-Hex 2% Top Sol 8oz TOPIC SCH (10:45)
--- NOTE | 2017-05-05 11:02 | Diagnostic Imaging Report ---
Indications: Nasogastric tube advancement Technique: Portable supine AP abdomen at 09 15 Findings: Comparison: 0722 Nasogastric tube has been advanced, both tip and proximal side port now clearly within the stomach. No other change. IMPRESSION: Adequate position of nasogastric tube
[2017-05-05] MEDS: Docusate 100mg/10ml Liq NG SCH ×2 (11:25→18:25)
[2017-05-05] MEDS: Metoprolol 50mg tab ORAL SCH ×2 (11:28→20:58)
[2017-05-05] MEDS: Ascorbic Acid 500mg tab ORAL SCH (11:28)
[2017-05-05] MEDS: Aspirin Baby 81mg NG SCH (11:28)
[2017-05-05 12:00] VITALS: BP 145/65
--- NOTE | 2017-05-05 12:41 | Infectious Diseases Prog Note ---
Assessment/Plan Assessment/Plan antibiotics : meropenem A 1. e.coli sepsis secondary to UTI 2. e.coli UTI 3. leucocytosis improving 4. renal failure improving 5. DM 6. HTN 7. nasal MRSA colonization P 1. continue meropenem 2 more days 2. will follow up cultures Subjective ROS Limited/Unobtainable: Yes Allergies: Coded Allergies: PENICILLINS (Verified Allergy, Unknown, 03/18/17) Objective Vital Signs Last 24 Hour Vital Signs Date Time Temp Pulse Resp B/P Pulse Ox O2 Delivery O2 Flow Rate FiO2 05/05/17 11:28 79 150/73 05/05/17 08:00 98.0 80 20 150/73 98 Nasal Cannula 2.0 05/05/17 08:00 79 05/05/17 07:35 Nasal Cannula 2.0 05/05/17 07:34 97 Nasal Cannula 2.0 05/05/17 04:00 97.8 82 16 142/60 98 Nasal Cannula 2.0 05/05/17 04:00 75 05/05/17 00:36 98.7 74 20 139/68 98 Nasal Cannula 2.0 05/05/17 00:00 75 05/04/17 21:04 83 157/56 05/04/17 20:00 81 05/04/17 20:00 97.9 83 18 157/56 98 Nasal Cannula 2.0 05/04/17 16:00 69 05/04/17 15:33 97.1 63 18 131/51 98 Nasal Cannula 2.0 Height (Feet): 5 Height (Inches): 3.00 Weight (Pounds): 167 Respiratory/Chest: lungs clear Cardiovascular: normal rate, regular rhythm, no gallop/murmur Abdomen: soft, non tender Extremities: no edema CARON ARIAS May 05, 2017 12:41
[2017-05-05 16:00] VITALS: BP 100/62
--- NOTE | 2017-05-05 17:01 | Electroencephalogram ---
DATE OF PROCEDURE: 05/01/2017 REQUESTING PHYSICIAN: Francis Jones M.D. HISTORY: This is a 67 years old female with old right MCA distribution stroke, verbal unresponsiveness, bilateral subdural hematoma, urosepsis, polypharmacy, coronary artery disease, hypertension, diabetes, currently with no sedation given. EEG was done using 18 electrodes placed on scalp to scalp, scalp to ear montages according to 10/20 International System. The patient appears to be awake, but drowsy, cry full when awake, aphasic. Most wakeful portions of recording, background activity consists of low to medium voltage, mixture of 7-8 cycles per second, activity with intermittent appearance of slowness in the theta range, 7 cycles over the right hemisphere, predominantly central parietal region. Stimulation limited to eye open and eye closure and awake sleeps and sleep stage. There was no spike and wave activity noted. No significant amplitude asymmetry. IMPRESSION: Abnormal EEG presenting with mild diffuse slowing with some predominance over right central temporal region. COMMENT: Above abnormality indicate presence of global cerebral dysfunction with probable underlying lesion in the right central temporal area. This may correlate with the previous stroke. Absence of paroxysmal event does not rule out seizure disorder. Zbigniew Shirley M.D. DR: DARLENE JOB#: [id number] CC:
[2017-05-05 20:46] VITALS: BP 100/52
[2017-05-05] MEDS: LORazepam Inj 2mg/ml 1ml IV PRN (20:54)
--- NOTE | 2017-05-05 22:30 | Progress Note ---
DATE: 05/05/2017 CARDIOLOGY PROGRESS NOTE: SUBJECTIVE: The patient is in no distress. Respiratory hygiene is continuing. Monitor sinus rhythm. OBJECTIVE: VITAL SIGNS: Blood pressure 142/60, pulse 82, respiratory rate 16, and no fevers. LUNGS: Coarse breath sounds. HEART: Regular rhythm and rate. Normal S1, S2. ABDOMEN: Soft. EXTREMITIES: No edema. LABORATORY DATA: No new labs today. IMPRESSION: 1. Rehydrated status post dehydration and hypernatremia. 2. Escherichia coli sepsis. 3. Urinary tract infection. 4. Acute myocardial infarction. 5. Hypertensive heart disease. 6. Recovered shock. PLAN: Antibiotics per Infectious Disease senior treasury consultant. Adjust IV fluids. Continue feedings by G-tube. Continue current cardiovascular regimen including beta-denise and anti-platelet drugs. Recheck lab studies. Discharge planning. William Mckeon M.D. DR: Sampson JOB#: [id number] CC:
[2017-05-06] VITALS: BP 150/77
[2017-05-06] MEDS: Meropenem 1 GM in NS 110 ML IVPB SCH ×2 (02:25→14:42)
[2017-05-06] MEDS: LORazepam Inj 2mg/ml 1ml IV PRN (02:25)
[2017-05-06 04:00] VITALS: BP 132/72
[2017-05-06] MEDS: NovoLOG Insulin Flexpen SUBQ SCH ×4 (05:51→23:57)
[2017-05-06 05:54] LABS: BASOPHILS % (AUTO) 0.7 % (0.0-2.0); EOSINOPHILS % (AUTO) 5.2 % (0.0-3.0); LYMPHOCYTES % (AUTO) 24.4 % (20.0-45.0); MEAN CORPUSCULAR HEMOGLOBIN 24.3 PG (27.0-31.0); MEAN CORPUSCULAR VOLUME 78 FL (80-99); MEAN PLATELET VOLUME 7.1 FL (6.5-10.1); MONOCYTES % (AUTO) 7.8 % (1.0-10.0); NEUTROPHILS % (AUTO) 61.9 % (45.0-75.0); PLATELET COUNT 356 K/UL (150-450); RED BLOOD COUNT 4.22 M/UL (4.20-5.40); RED CELL DISTRIBUTION WIDTH 21.7 % (11.6-14.8)
[2017-05-06 06:08] LABS: ALANINE AMINOTRANSFERASE 11 U/L (3-33); ALBUMIN/GLOBULIN RATIO 0.4 (1.0-2.7); ANION GAP 15 (5-15); CALCIUM 8.3 mg/dL (8.6-10.2); CARBON DIOXIDE 25 mEQ/L (20-30); CHLORIDE 103 mEQ/L (98-107); CREATININE 0.6 mg/dL (0.5-0.9); GLOMERULAR FILTRATION RATE > 60 mL/min (>60); HEMOLYSIS 1; MAGNESIUM 1.7 mg/dL (1.7-2.5); POTASSIUM 2.9 mEQ/L (3.4-4.9); SODIUM 143 mEQ/L (135-145); TOTAL PROTEIN 6.8 g/dL (6.6-8.7)
[2017-05-06 06:20] LABS: ASPARTATE AMINO TRANSFERASE 21 U/L (5-40)
[2017-05-06 08:00] VITALS: BP 139/77
[2017-05-06] MEDS: KCl 10% 40mEq/30ml liquid NG SCH ×2 (08:34→17:44)
[2017-05-06] MEDS: Morphine Sulfate 2mg/ml Inj IVP PRN ×3 (08:34→20:52)
[2017-05-06] MEDS: Multivitamins W/Minerals 15 ML UDC NG SCH (08:35)
[2017-05-06] MEDS: Docusate 100mg/10ml Liq NG SCH ×2 (08:35→17:44)
[2017-05-06] MEDS: Aspirin Baby 81mg NG SCH (08:36)
[2017-05-06] MEDS: Heparin 5000 units/ml inj SUBQ SCH ×2 (08:36→20:41)
[2017-05-06] MEDS: Ascorbic Acid 500mg tab ORAL SCH (08:36)
[2017-05-06] MEDS: Metoprolol 50mg tab ORAL SCH ×2 (08:37→20:26)
[2017-05-06] MEDS: Levemir Flexpen SUBQ SCH ×2 (08:38→20:41)
--- NOTE | 2017-05-06 09:26 | Critical Care Progress Note ---
Assessment/Plan Assessment/Plan IMPRESSION: 1. Pneumonia. 2. Hypoxemia. 3. Evidence of metabolic acidosis. 4. Septic shock. 5. Lactic acidemia. 6. Focal hemiplegia. 7. History of stroke. 8. History of urinary tract infection. 9. Likely acute on chronic renal failure. 10. Electrolyte imbalance. 11. History of diabetes. PLAN K replacement monitor airway for now stable antibiotics noted monitor for aspiration and assess congestion KIRBY care follow up for further changes and intervention stable at present follow up imaging as needed if any change dc planning medications/laboratory data/nursing notes reviewed in detail note reviewed and edited care discussed with RN and RT Critical Care - Subjective Interval Events: care noted and reviewed K replaced no distress ROS Limited/Unobtainable: Yes EKG Rhythm: Sinus Rhythm I&O: Intake and Output 05/05/17 05/06/17 19:00 07:00 Intake Total 775 ml 70 ml Output Total 750 ml Balance 25 ml 70 ml Free Water 150 ml 50 ml IV Total 485 ml Tube Feeding 140 ml 20 ml Output Urine Total 750 ml # Bowel Movements 1 Critical Care - Objective Last 24 Hour Vital Signs Date Time Temp Pulse Resp B/P Pulse Ox O2 Delivery O2 Flow Rate FiO2 05/06/17 08:37 87 139/77 05/06/17 08:00 97.9 87 22 139/77 100 Nasal Cannula 2.0 05/06/17 07:59 Nasal Cannula 2.0 05/06/17 07:59 98 Nasal Cannula 2.0 05/06/17 04:00 87 05/06/17 04:00 99.2 88 20 132/72 98 Nasal Cannula 2.0 05/06/17 00:00 98.5 77 20 150/77 98 Nasal Cannula 2.0 05/06/17 00:00 77 05/05/17 20:58 74 100/52 05/05/17 20:46 98.0 74 18 100/52 98 Nasal Cannula 2.0 05/05/17 20:00 76 05/05/17 16:00 67 05/05/17 16:00 98.6 66 16 100/62 99 Nasal Cannula 2.0 05/05/17 12:00 98.0 85 20 145/65 98 Nasal Cannula 2.0 05/05/17 12:00 91 05/05/17 11:28 79 150/73 Labs: Labs Test 05/04/17 04:25 05/06/17 04:10 White Blood Count 10.5 K/UL (4.8-10.8) 7.0 K/UL (4.8-10.8) Red Blood Count 3.82 M/UL (4.20-5.40) 4.22 M/UL (4.20-5.40) Hemoglobin 9.4 G/DL (12.0-16.0) 10.2 G/DL (12.0-16.0) Hematocrit 30.2 % (37.0-47.0) 33.1 % (37.0-47.0) Mean Corpuscular Volume 79 FL (80-99) 78 FL (80-99) Mean Corpuscular Hemoglobin 24.7 PG (27.0-31.0) 24.3 PG (27.0-31.0) Mean Corpuscular Hemoglobin Concent 31.3 G/DL (32.0-36.0) 31.0 G/DL (32.0-36.0) Red Cell Distribution Width 22.1 % (11.6-14.8) 21.7 % (11.6-14.8) Platelet Count 275 K/UL (150-450) 356 K/UL (150-450) Mean Platelet Volume 7.7 FL (6.5-10.1) 7.1 FL (6.5-10.1) Neutrophils (%) (Auto) 68.7 % (45.0-75.0) 61.9 % (45.0-75.0) Lymphocytes (%) (Auto) 16.9 % (20.0-45.0) 24.4 % (20.0-45.0) Monocytes (%) (Auto) 8.9 % (1.0-10.0) 7.8 % (1.0-10.0) Eosinophils (%) (Auto) 4.9 % (0.0-3.0) 5.2 % (0.0-3.0) Basophils (%) (Auto) 0.6 % (0.0-2.0) 0.7 % (0.0-2.0) Sodium Level 145 mEQ/L (135-145) 143 mEQ/L (135-145) Potassium Level 3.5 mEQ/L (3.4-4.9) 2.9 mEQ/L (3.4-4.9) Chloride Level 105 mEQ/L (98-107) 103 mEQ/L (98-107) Carbon Dioxide Level 24 mEQ/L (20-30) 25 mEQ/L (20-30) Anion Gap 16 (5-15) 15 (5-15) Blood Urea Nitrogen 12 mg/dL (7-23) 8 mg/dL (7-23) Creatinine 0.7 mg/dL (0.5-0.9) 0.6 mg/dL (0.5-0.9) Estimat Glomerular Filtration Rate > 60 mL/min (>60) > 60 mL/min (>60) Glucose Level 151 mg/dL (74-106) 161 mg/dL (74-106) Calcium Level 8.4 mg/dL (8.6-10.2) 8.3 mg/dL (8.6-10.2) Total Bilirubin 0.5 mg/dL (0.0-1.2) 0.4 mg/dL (0.0-1.2) Aspartate Amino Transf (AST/SGOT) 21 U/L (5-40) 21 U/L (5-40) Alanine Aminotransferase (ALT/SGPT) 13 U/L (3-33) 11 U/L (3-33) Alkaline Phosphatase 122 U/L (35-104) 105 U/L (35-104) Total Protein 6.6 g/dL (6.6-8.7) 6.8 g/dL (6.6-8.7) Albumin 2.0 g/dL (3.5-5.2) 2.2 g/dL (3.5-5.2) Globulin 4.6 g/dL 4.6 g/dL Albumin/Globulin Ratio 0.4 (1.0-2.7) 0.4 (1.0-2.7) Magnesium Level 1.7 mg/dL (1.7-2.5) Pro-B-Type Natriuretic Peptide 4048 pg/mL (0-125) Objective: GENERAL: A well-developed female. on o2; NAD NECK: Supple. No adenopathy. LUNGS: reduced breath sounds. reduced rhonchi no wheeze CARDIOVASCULAR: S1 and S2. Regular rate and rhythm without murmur, rubs, or gallops. ABDOMEN: Soft and nontender. no HSM; no distention EXTREMITIES: No cyanosis or clubbing. No edema. NEUROLOGIC: Left-sided hemiplegia. without change SKIN: Exam noted and reviewed. Accucheck: 138 MASSIEL SPENCER May 06, 2017 09:26
--- NOTE | 2017-05-06 11:28 | Infectious Diseases Prog Note ---
Assessment/Plan Assessment/Plan antibiotics : meropenem A 1. e.coli sepsis secondary to UTI 2. e.coli UTI 3. leucocytosis improving 4. renal failure improving 5. DM 6. HTN 7. nasal MRSA colonization P 1. continue meropenem 1 more day 2. will follow up cultures Subjective ROS Limited/Unobtainable: Yes Allergies: Coded Allergies: PENICILLINS (Verified Allergy, Unknown, 03/18/17) Objective Vital Signs Last 24 Hour Vital Signs Date Time Temp Pulse Resp B/P Pulse Ox O2 Delivery O2 Flow Rate FiO2 05/06/17 09:05 97.9 05/06/17 08:37 87 139/77 05/06/17 08:00 97.9 87 22 139/77 100 Nasal Cannula 2.0 05/06/17 08:00 82 05/06/17 07:59 Nasal Cannula 2.0 05/06/17 07:59 98 Nasal Cannula 2.0 05/06/17 04:00 87 05/06/17 04:00 99.2 88 20 132/72 98 Nasal Cannula 2.0 05/06/17 00:00 98.5 77 20 150/77 98 Nasal Cannula 2.0 05/06/17 00:00 77 05/05/17 20:58 74 100/52 05/05/17 20:46 98.0 74 18 100/52 98 Nasal Cannula 2.0 05/05/17 20:00 76 05/05/17 16:00 67 05/05/17 16:00 98.6 66 16 100/62 99 Nasal Cannula 2.0 05/05/17 12:00 98.0 85 20 145/65 98 Nasal Cannula 2.0 05/05/17 12:00 91 05/05/17 11:28 79 150/73 Height (Feet): 5 Height (Inches): 3.00 Weight (Pounds): 150 Respiratory/Chest: lungs clear Cardiovascular: normal rate, regular rhythm, no gallop/murmur Abdomen: soft, non tender Extremities: no edema, other - right arm PICC Laboratory Tests Test 05/06/17 04:10 White Blood Count 7.0 K/UL (4.8-10.8) Red Blood Count 4.22 M/UL (4.20-5.40) Hemoglobin 10.2 G/DL (12.0-16.0) L Hematocrit 33.1 % (37.0-47.0) L Mean Corpuscular Volume 78 FL (80-99) L Mean Corpuscular Hemoglobin 24.3 PG (27.0-31.0) L Mean Corpuscular Hemoglobin Concent 31.0 G/DL (32.0-36.0) L Red Cell Distribution Width 21.7 % (11.6-14.8) H Platelet Count 356 K/UL (150-450) Mean Platelet Volume 7.1 FL (6.5-10.1) Neutrophils (%) (Auto) 61.9 % (45.0-75.0) Lymphocytes (%) (Auto) 24.4 % (20.0-45.0) Monocytes (%) (Auto) 7.8 % (1.0-10.0) Eosinophils (%) (Auto) 5.2 % (0.0-3.0) H Basophils (%) (Auto) 0.7 % (0.0-2.0) Sodium Level 143 mEQ/L (135-145) Potassium Level 2.9 mEQ/L (3.4-4.9) L Chloride Level 103 mEQ/L (98-107) Carbon Dioxide Level 25 mEQ/L (20-30) Anion Gap 15 (5-15) Blood Urea Nitrogen 8 mg/dL (7-23) Creatinine 0.6 mg/dL (0.5-0.9) Estimat Glomerular Filtration Rate > 60 mL/min (>60) Glucose Level 161 mg/dL (74-106) H Calcium Level 8.3 mg/dL (8.6-10.2) L Magnesium Level 1.7 mg/dL (1.7-2.5) Total Bilirubin 0.4 mg/dL (0.0-1.2) Aspartate Amino Transf (AST/SGOT) 21 U/L (5-40) Alanine Aminotransferase (ALT/SGPT) 11 U/L (3-33) Alkaline Phosphatase 105 U/L (35-104) H Pro-B-Type Natriuretic Peptide 4048 pg/mL (0-125) H Total Protein 6.8 g/dL (6.6-8.7) Albumin 2.2 g/dL (3.5-5.2) L Globulin 4.6 g/dL Albumin/Globulin Ratio 0.4 (1.0-2.7) L CARON ARIAS May 06, 2017 11:28
[2017-05-06 12:00] VITALS: BP 100/57
[2017-05-06 16:00] VITALS: BP 128/78
[2017-05-06] MEDS: Dyna-Hex 2% Top Sol 8oz TOPIC SCH (20:39)
--- NOTE | 2017-05-06 22:00 | Progress Note ---
DATE: 05/06/2017 SUBJECTIVE: The patient is without distress. Secretions have decreased. No shortness of breath noted. OBJECTIVE: VITAL SIGNS: Blood pressure 100/57 to 139/77, heart rate 78, respiratory rate 18, and afebrile. LUNGS: Good breath sounds. HEART: Regular rhythm and rate. Normal S1 and S2. ABDOMEN: Soft. No edema. LABORATORY DATA: White count 7, hemoglobin 10.2. Potassium 3.9, BUN 8, creatinine 0.6, and magnesium 1.7. Albumin 3.2. Pro-natriuretic peptide is decreased to 4000. IMPRESSION: 1. Acute on chronic diastolic congestive heart failure, now mostly compensated. 2. Severe protein-calorie malnutrition, on nutritional support. 3. Hypokalemia and hypomagnesemia, on supplementation. 4. Acute myocardial infarction, now without any signs of residual ischemia. We will manage medically on beta-blockade, anti-platelet therapy, and statin drugs. 5. Disposition and discharge planning in progress to [facility] facility. William Mckeon M.D. DR: OSCAR JOB#: [id number] CC:
[2017-05-06 23:58] VITALS: BP 130/68
[2017-05-07] MEDS: Meropenem 1 GM in NS 110 ML IVPB SCH (02:18)
[2017-05-07] MEDS: Morphine Sulfate 2mg/ml Inj IVP PRN ×2 (02:58→22:39)
[2017-05-07 04:00] VITALS: BP 124/68
[2017-05-07 05:17] LABS: BASOPHILS % (AUTO) 0.9 % (0.0-2.0); EOSINOPHILS % (AUTO) 5.1 % (0.0-3.0); LYMPHOCYTES % (AUTO) 23.7 % (20.0-45.0); MEAN CORPUSCULAR HEMOGLOBIN 24.6 PG (27.0-31.0); MEAN CORPUSCULAR HGB CONC 30.8 G/DL (32.0-36.0); MEAN CORPUSCULAR VOLUME 80 FL (80-99); MEAN PLATELET VOLUME 7.1 FL (6.5-10.1); MONOCYTES % (AUTO) 8.1 % (1.0-10.0); NEUTROPHILS % (AUTO) 62.2 % (45.0-75.0); PLATELET COUNT 363 K/UL (150-450); RED BLOOD COUNT 3.82 M/UL (4.20-5.40); WHITE BLOOD COUNT 6.8 K/UL (4.8-10.8)
[2017-05-07] MEDS: NovoLOG Insulin Flexpen SUBQ SCH ×4 (05:23→23:27)
[2017-05-07 05:50] LABS: ANION GAP 9 (5-15); CALCIUM 8.1 mg/dL (8.6-10.2); CARBON DIOXIDE 29 mEQ/L (20-30); CHLORIDE 105 mEQ/L (98-107); CREATININE 0.6 mg/dL (0.5-0.9); GLOMERULAR FILTRATION RATE > 60 mL/min (>60); HEMOLYSIS 5; POTASSIUM 3.8 mEQ/L (3.4-4.9); SODIUM 143 mEQ/L (135-145)
[2017-05-07 07:37] VITALS: BP 135/73
[2017-05-07] MEDS: Levemir Flexpen SUBQ SCH ×2 (08:01→20:51)
--- NOTE | 2017-05-07 08:31 | Infectious Diseases Prog Note ---
Assessment/Plan Assessment/Plan 1A; 1. E. Coli sepsis s/p Rx 2. E. coli UTI s/p Rx 3. leucocytosis resolved 4. renal failure resolved 5. DM 6. HPN P 1. discontinue meropenem Subjective ROS Limited/Unobtainable: No Constitutional: Reports: no symptoms Respiratory: Reports: no symptoms Cardiovascular: Reports: no symptoms Gastrointestinal/Abdominal: Reports: no symptoms Allergies: Coded Allergies: PENICILLINS (Verified Allergy, Unknown, 03/18/17) Objective Vital Signs Last 24 Hour Vital Signs Date Time Temp Pulse Resp B/P Pulse Ox O2 Delivery O2 Flow Rate FiO2 05/07/17 08:00 89 05/07/17 07:53 96 Nasal Cannula 2.0 05/07/17 07:53 Nasal Cannula 2.0 05/07/17 07:37 97.9 82 20 135/73 98 Nasal Cannula 2.0 05/07/17 04:00 74 05/07/17 04:00 97.5 79 16 124/68 99 Nasal Cannula 2.0 05/07/17 03:34 77 05/06/17 23:58 97.5 79 16 130/68 99 Nasal Cannula 2.0 05/06/17 21:22 97.5 05/06/17 20:26 62 116/72 05/06/17 20:00 74 05/06/17 19:30 Nasal Cannula 2.0 05/06/17 19:30 97 Nasal Cannula 2.0 28 05/06/17 16:00 72 05/06/17 16:00 97.3 74 18 128/78 99 Nasal Cannula 2.0 05/06/17 13:05 97.9 05/06/17 12:00 97.2 75 18 100/57 99 Nasal Cannula 2.0 05/06/17 12:00 78 05/06/17 08:37 87 139/77 Height (Feet): 5 Height (Inches): 3.00 Weight (Pounds): 151 General Appearance: no acute distress HEENT: other - NG tube feeding Respiratory/Chest: lungs clear Cardiovascular: normal rate Abdomen: soft, non tender Extremities: no edema, other - R arm PICC line Neurologic/Psychiatric: alert, responsive, other - flexion contracture in left hand Laboratory Tests Test 05/07/17 03:45 White Blood Count 6.8 K/UL (4.8-10.8) Red Blood Count 3.82 M/UL (4.20-5.40) L Hemoglobin 9.4 G/DL (12.0-16.0) L Hematocrit 30.5 % (37.0-47.0) L Mean Corpuscular Volume 80 FL (80-99) Mean Corpuscular Hemoglobin 24.6 PG (27.0-31.0) L Mean Corpuscular Hemoglobin Concent 30.8 G/DL (32.0-36.0) L Red Cell Distribution Width 22.0 % (11.6-14.8) H Platelet Count 363 K/UL (150-450) Mean Platelet Volume 7.1 FL (6.5-10.1) Neutrophils (%) (Auto) 62.2 % (45.0-75.0) Lymphocytes (%) (Auto) 23.7 % (20.0-45.0) Monocytes (%) (Auto) 8.1 % (1.0-10.0) Eosinophils (%) (Auto) 5.1 % (0.0-3.0) H Basophils (%) (Auto) 0.9 % (0.0-2.0) Sodium Level 143 mEQ/L (135-145) Potassium Level 3.8 mEQ/L (3.4-4.9) Chloride Level 105 mEQ/L (98-107) Carbon Dioxide Level 29 mEQ/L (20-30) Anion Gap 9 (5-15) Blood Urea Nitrogen 9 mg/dL (7-23) Creatinine 0.6 mg/dL (0.5-0.9) Estimat Glomerular Filtration Rate > 60 mL/min (>60) Glucose Level 136 mg/dL (74-106) H Calcium Level 8.1 mg/dL (8.6-10.2) L Pro-B-Type Natriuretic Peptide 3550 pg/mL (0-125) H Current Medications Medications (Trade) Dose Ordered Sig/Amy Route PRN Reason Start Time Stop Time Status Last Admin Dose Admin Acetaminophen (Tylenol) 650 mg Q4H PRN ORAL Mild Pain (Pain Scale 1-3) 05/01/17 20:00 05/31/17 19:59 05/06/17 12:08 Acetaminophen (Tylenol) 650 mg Q4H PRN RECTAL FEVER (Temp>101) 05/01/17 20:30 05/31/17 20:29 Ascorbic Acid (Vitamin C) 500 mg DAILY ORAL 05/02/17 09:00 06/01/17 08:59 05/06/17 08:36 Aspirin (ASA) 81 mg DAILY NG 05/02/17 09:00 06/01/17 08:59 05/06/17 08:36 Bisacodyl (Dulcolax) 10 mg DAILYPRN PRN RECTAL Constipation 05/01/17 19:37 05/31/17 19:36 Chlorhexidine Gluconate (Milana-Hex 2%) 1 applic QHS TOPIC 05/06/17 21:00 06/05/17 20:59 05/06/17 20:39 Dextrose (D5W 1000ml) 1,000 ml @ 75 mls/hr [id number] IV 05/04/17 15:00 06/03/17 14:59 05/07/17 02:53 Dextrose (Dextrose 50%) STAT PRN IV Hypoglycemia 05/01/17 19:38 05/31/17 19:37 Docusate Sodium (Colace) 100 mg TWICE A DAY NG 05/03/17 09:00 06/02/17 08:59 05/06/17 17:44 Ferrous Sulfate (Feosol) 325 mg BID ORAL 05/01/17 21:00 05/31/17 20:59 05/06/17 17:44 Heparin Sodium (Porcine) (Heparin 5000 units/ml) 5,000 units EVERY 12 HOURS SUBQ 05/01/17 21:00 05/31/17 20:59 05/06/17 20:41 Insulin Aspart (NovoLOG) Q6HR SUBQ 05/02/17 18:00 06/01/17 17:59 05/06/17 23:57 Insulin Detemir (Levemir) 6 units Q12HR SUBQ 05/01/17 21:00 05/31/17 20:59 05/06/17 20:41 Lactulose (Cephulac) 10 gm TIDPRN PRN ORAL Constipation 05/01/17 19:39 05/31/17 19:38 Lansoprazole (Prevacid) 30 mg DAILY GT 05/02/17 09:00 06/01/17 08:59 05/06/17 08:35 Lorazepam (Ativan 2mg/ml 1ml) 1 mg Q4H PRN IV For Anxiety 05/01/17 19:39 05/08/17 19:38 05/06/17 02:25 Meropenem 1 gm/ Sodium Chloride 110 ml @ 220 mls/hr Q12HR@0300,1500 IVPB 05/04/17 15:00 05/09/17 14:59 05/07/17 02:18 Metoprolol Tartrate 50 mg 50 mg Q12HR ORAL 05/04/17 09:00 06/03/17 08:59 05/06/17 08:37 Morphine Sulfate (Morphine Sulfate) 1 mg Q4H PRN IVP For Pain 4-10 05/03/17 15:00 05/10/17 14:59 05/07/17 02:58 Multivitamins (Multivitamins W/ Minerals 15ml Liquid) 15 ml DAILY NG 05/02/17 09:00 06/01/17 08:59 05/06/17 08:35 Quetiapine Fumarate (SEROquel) 25 mg Q12H PRN ORAL severe agitation 05/01/17 21:00 05/31/17 20:59 05/05/17 23:37 ARCHANA HARKINS May 07, 2017 08:31
[2017-05-07] MEDS: Aspirin Baby 81mg NG SCH (08:37)
[2017-05-07] MEDS: Ascorbic Acid 500mg tab ORAL SCH (08:37)
[2017-05-07] MEDS: Docusate 100mg/10ml Liq NG SCH ×2 (08:37→18:20)
[2017-05-07] MEDS: Multivitamins W/Minerals 15 ML UDC NG SCH (08:38)
[2017-05-07] MEDS: Metoprolol 50mg tab ORAL SCH ×2 (08:38→20:50)
[2017-05-07] MEDS: Heparin 5000 units/ml inj SUBQ SCH ×2 (08:39→20:51)
[2017-05-07 11:25] VITALS: BP 162/81
[2017-05-07 12:29] VITALS: BP 104/59
--- NOTE | 2017-05-07 13:19 | Critical Care Progress Note ---
Assessment/Plan Assessment/Plan IMPRESSION: 1. Pneumonia. 2. Hypoxemia. 3. Evidence of metabolic acidosis. 4. Septic shock. 5. Lactic acidemia. 6. Focal hemiplegia. 7. History of stroke. 8. History of urinary tract infection. 9. Likely acute on chronic renal failure. 10. Electrolyte imbalance. 11. History of diabetes. PLAN monitor lytes monitor airway but stable at present antibiotics noted monitor for aspiration and assess congestion KIRBY care follow up for further changes and intervention stable at present dc planning to SNF medications/laboratory data/nursing notes reviewed in detail note reviewed and edited care discussed with RN and RT Critical Care - Subjective Interval Events: care reviewed NAD no distress ROS Limited/Unobtainable: Yes I&O: Intake and Output 05/06/17 05/07/17 19:00 07:00 Intake Total 1325 ml 1240 ml Output Total 750 ml 1400 ml Balance 575 ml -160 ml Free Water 100 ml 50 ml IV Total 935 ml 1010 ml Tube Feeding 240 ml 180 ml Other 50 ml Output Urine Total 750 ml 1400 ml Critical Care - Objective Last 24 Hour Vital Signs Date Time Temp Pulse Resp B/P Pulse Ox O2 Delivery O2 Flow Rate FiO2 05/07/17 12:29 83 104/59 05/07/17 11:25 97.7 96 19 162/81 99 Nasal Cannula 2.0 05/07/17 08:38 68 135/70 05/07/17 08:00 89 05/07/17 07:53 96 Nasal Cannula 2.0 05/07/17 07:53 Nasal Cannula 2.0 05/07/17 07:37 97.9 82 20 135/73 98 Nasal Cannula 2.0 05/07/17 04:00 74 05/07/17 04:00 97.5 79 16 124/68 99 Nasal Cannula 2.0 05/07/17 03:34 77 05/06/17 23:58 97.5 79 16 130/68 99 Nasal Cannula 2.0 05/06/17 21:22 97.5 05/06/17 20:26 62 116/72 05/06/17 20:00 74 05/06/17 19:30 Nasal Cannula 2.0 28 05/06/17 19:30 97 Nasal Cannula 2.0 28 05/06/17 16:00 72 05/06/17 16:00 97.3 74 18 128/78 99 Nasal Cannula 2.0 Labs: Labs Test 05/06/17 04:10 05/07/17 03:45 White Blood Count 7.0 K/UL (4.8-10.8) 6.8 K/UL (4.8-10.8) Red Blood Count 4.22 M/UL (4.20-5.40) 3.82 M/UL (4.20-5.40) Hemoglobin 10.2 G/DL (12.0-16.0) 9.4 G/DL (12.0-16.0) Hematocrit 33.1 % (37.0-47.0) 30.5 % (37.0-47.0) Mean Corpuscular Volume 78 FL (80-99) 80 FL (80-99) Mean Corpuscular Hemoglobin 24.3 PG (27.0-31.0) 24.6 PG (27.0-31.0) Mean Corpuscular Hemoglobin Concent 31.0 G/DL (32.0-36.0) 30.8 G/DL (32.0-36.0) Red Cell Distribution Width 21.7 % (11.6-14.8) 22.0 % (11.6-14.8) Platelet Count 356 K/UL (150-450) 363 K/UL (150-450) Mean Platelet Volume 7.1 FL (6.5-10.1) 7.1 FL (6.5-10.1) Neutrophils (%) (Auto) 61.9 % (45.0-75.0) 62.2 % (45.0-75.0) Lymphocytes (%) (Auto) 24.4 % (20.0-45.0) 23.7 % (20.0-45.0) Monocytes (%) (Auto) 7.8 % (1.0-10.0) 8.1 % (1.0-10.0) Eosinophils (%) (Auto) 5.2 % (0.0-3.0) 5.1 % (0.0-3.0) Basophils (%) (Auto) 0.7 % (0.0-2.0) 0.9 % (0.0-2.0) Sodium Level 143 mEQ/L (135-145) 143 mEQ/L (135-145) Potassium Level 2.9 mEQ/L (3.4-4.9) 3.8 mEQ/L (3.4-4.9) Chloride Level 103 mEQ/L (98-107) 105 mEQ/L (98-107) Carbon Dioxide Level 25 mEQ/L (20-30) 29 mEQ/L (20-30) Anion Gap 15 (5-15) 9 (5-15) Blood Urea Nitrogen 8 mg/dL (7-23) 9 mg/dL (7-23) Creatinine 0.6 mg/dL (0.5-0.9) 0.6 mg/dL (0.5-0.9) Estimat Glomerular Filtration Rate > 60 mL/min (>60) > 60 mL/min (>60) Glucose Level 161 mg/dL (74-106) 136 mg/dL (74-106) Calcium Level 8.3 mg/dL (8.6-10.2) 8.1 mg/dL (8.6-10.2) Magnesium Level 1.7 mg/dL (1.7-2.5) Total Bilirubin 0.4 mg/dL (0.0-1.2) Aspartate Amino Transf (AST/SGOT) 21 U/L (5-40) Alanine Aminotransferase (ALT/SGPT) 11 U/L (3-33) Alkaline Phosphatase 105 U/L (35-104) Pro-B-Type Natriuretic Peptide 4048 pg/mL (0-125) 3550 pg/mL (0-125) Total Protein 6.8 g/dL (6.6-8.7) Albumin 2.2 g/dL (3.5-5.2) Globulin 4.6 g/dL Albumin/Globulin Ratio 0.4 (1.0-2.7) Objective: GENERAL: A well-developed female. on o2; NAD NECK: Supple. No adenopathy. LUNGS: reduced breath sounds. minimal rhonchi no wheeze CARDIOVASCULAR: S1 and S2. Regular rate and rhythm without murmur, rubs, or gallops. ABDOMEN: Soft and nontender. no HSM; no distention EXTREMITIES: No cyanosis or clubbing. No edema. NEUROLOGIC: Left-sided hemiplegia. without change SKIN: Exam noted and reviewed. reviewed and edited Accucheck: 207 MASSIEL SPENCER May 07, 2017 13:19
[2017-05-07 16:00] VITALS: BP 126/60
--- NOTE | 2017-05-07 18:01 | Progress Note ---
DATE: 05/07/2017 CARDIOLOGY/INTERNAL MEDICINE PROGRESS NOTE SUBJECTIVE: Swallow evaluation was performed. The patient has aspiration risk, however, family members wished to pursue oral diet. Appropriate diet has been ordered namely ground soft diet with thin liquids and one-to-one feedings. The patient has no respiratory distress, some congestion at times, and requires respiratory hygiene. OBJECTIVE: VITAL SIGNS: Blood pressure 104/59 to 162/81, heart rate 83 to 96, respiratory rate 19, and afebrile. Oxygen saturation 99% on 2 liters. HEENT: NG tube in place. LUNGS: Coarse breath sounds. HEART: Regular rhythm and rate. Normal S1 and S2. ABDOMEN: Soft. EXTREMITIES: No edema. LABORATORY DATA: White count 6.8 and hemoglobin is 9.4. Sodium 143, potassium 3.8, bicarb 29, BUN 9, and creatinine 0.6. Pro-natriuretic peptide decreased to 3550. IMPRESSION: 1. Dysphagia. 2. Aspiration risk. 3. Acute myocardial infarction. 4. Status post sepsis with shock. 5. Severe protein-calorie malnutrition. 6. Acute on chronic diastolic congestive heart failure. 7. Rehydrated with resolved hypovolemia. PLAN: 1. Aspiration precautions. 2. Initiate diet as ordered. 3. Off IV fluids. 4. Respiratory hygiene. 5. Off antibiotics. 6. Discharge planning. William Mckeon M.D. DR: YULIA JOB#: [id number] CC:
[2017-05-07 20:38] VITALS: BP 121/55
[2017-05-07] MEDS: Dyna-Hex 2% Top Sol 8oz TOPIC SCH (20:50)
[2017-05-08 00:28] VITALS: BP 149/67
[2017-05-08] MEDS: Morphine Sulfate 2mg/ml Inj IVP PRN (03:01)
[2017-05-08 04:23] VITALS: BP 148/69
[2017-05-08] MEDS: NovoLOG Insulin Flexpen SUBQ SCH ×2 (05:35→12:51)
[2017-05-08 08:00] VITALS: BP 133/60
--- NOTE | 2017-05-08 08:12 | Critical Care Progress Note ---
Assessment/Plan Assessment/Plan IMPRESSION: 1. Pneumonia. 2. Hypoxemia. 3. Evidence of metabolic acidosis. 4. Septic shock. 5. Lactic acidemia. 6. Focal hemiplegia. 7. History of stroke. 8. History of urinary tract infection. 9. Likely acute on chronic renal failure. 10. Electrolyte imbalance. 11. History of diabetes. PLAN monitor for change monitor airway antibiotics noted and ID reviewed monitor for aspiration and assess congestion KIRBY care follow up for further changes and intervention stable at present dc planning to SNF per primary team medications/laboratory data/nursing notes reviewed in detail note reviewed and edited care discussed with RN and RT Critical Care - Subjective Interval Events: care noted nursing notes reviewed ROS Limited/Unobtainable: Yes I&O: Intake and Output 05/07/17 05/08/17 19:00 07:00 Intake Total 455 ml 1612 ml Output Total 1050 ml Balance -595 ml 1612 ml Intake Oral 80 ml Free Water 100 ml 150 ml IV Total 75 ml 862 ml Tube Feeding 200 ml 600 ml Output Urine Total 1050 ml Critical Care - Objective Last 24 Hour Vital Signs Date Time Temp Pulse Resp B/P Pulse Ox O2 Delivery O2 Flow Rate FiO2 05/08/17 04:23 97.6 82 18 148/69 99 Nasal Cannula 2.0 05/08/17 04:00 77 05/08/17 03:31 97.6 05/08/17 00:28 97.4 81 18 149/67 100 Nasal Cannula 2.0 05/08/17 00:00 70 05/07/17 21:00 Nasal Cannula 2.0 28 05/07/17 21:00 97 Nasal Cannula 2.0 28 05/07/17 20:50 84 121/55 05/07/17 20:38 97.4 84 18 121/55 98 Nasal Cannula 2.0 05/07/17 20:00 83 05/07/17 16:00 97.3 76 18 126/60 97 Nasal Cannula 2.0 05/07/17 16:00 66 05/07/17 12:29 83 104/59 05/07/17 12:00 72 05/07/17 11:25 97.7 96 19 162/81 99 Nasal Cannula 2.0 05/07/17 08:38 68 135/70 Labs: Labs Test 05/06/17 04:10 05/07/17 03:45 White Blood Count 7.0 K/UL (4.8-10.8) 6.8 K/UL (4.8-10.8) Red Blood Count 4.22 M/UL (4.20-5.40) 3.82 M/UL (4.20-5.40) Hemoglobin 10.2 G/DL (12.0-16.0) 9.4 G/DL (12.0-16.0) Hematocrit 33.1 % (37.0-47.0) 30.5 % (37.0-47.0) Mean Corpuscular Volume 78 FL (80-99) 80 FL (80-99) Mean Corpuscular Hemoglobin 24.3 PG (27.0-31.0) 24.6 PG (27.0-31.0) Mean Corpuscular Hemoglobin Concent 31.0 G/DL (32.0-36.0) 30.8 G/DL (32.0-36.0) Red Cell Distribution Width 21.7 % (11.6-14.8) 22.0 % (11.6-14.8) Platelet Count 356 K/UL (150-450) 363 K/UL (150-450) Mean Platelet Volume 7.1 FL (6.5-10.1) 7.1 FL (6.5-10.1) Neutrophils (%) (Auto) 61.9 % (45.0-75.0) 62.2 % (45.0-75.0) Lymphocytes (%) (Auto) 24.4 % (20.0-45.0) 23.7 % (20.0-45.0) Monocytes (%) (Auto) 7.8 % (1.0-10.0) 8.1 % (1.0-10.0) Eosinophils (%) (Auto) 5.2 % (0.0-3.0) 5.1 % (0.0-3.0) Basophils (%) (Auto) 0.7 % (0.0-2.0) 0.9 % (0.0-2.0) Sodium Level 143 mEQ/L (135-145) 143 mEQ/L (135-145) Potassium Level 2.9 mEQ/L (3.4-4.9) 3.8 mEQ/L (3.4-4.9) Chloride Level 103 mEQ/L (98-107) 105 mEQ/L (98-107) Carbon Dioxide Level 25 mEQ/L (20-30) 29 mEQ/L (20-30) Anion Gap 15 (5-15) 9 (5-15) Blood Urea Nitrogen 8 mg/dL (7-23) 9 mg/dL (7-23) Creatinine 0.6 mg/dL (0.5-0.9) 0.6 mg/dL (0.5-0.9) Estimat Glomerular Filtration Rate > 60 mL/min (>60) > 60 mL/min (>60) Glucose Level 161 mg/dL (74-106) 136 mg/dL (74-106) Calcium Level 8.3 mg/dL (8.6-10.2) 8.1 mg/dL (8.6-10.2) Magnesium Level 1.7 mg/dL (1.7-2.5) Total Bilirubin 0.4 mg/dL (0.0-1.2) Aspartate Amino Transf (AST/SGOT) 21 U/L (5-40) Alanine Aminotransferase (ALT/SGPT) 11 U/L (3-33) Alkaline Phosphatase 105 U/L (35-104) Pro-B-Type Natriuretic Peptide 4048 pg/mL (0-125) 3550 pg/mL (0-125) Total Protein 6.8 g/dL (6.6-8.7) Albumin 2.2 g/dL (3.5-5.2) Globulin 4.6 g/dL Albumin/Globulin Ratio 0.4 (1.0-2.7) Objective: GENERAL: A well-developed female. on o2; NAD NECK: Supple. No adenopathy. LUNGS: reduced breath sounds. minimal rhonchi no wheeze CARDIOVASCULAR: S1 and S2. Regular rate and rhythm without murmur, rubs, or gallops. ABDOMEN: Soft and nontender. no HSM; no distention EXTREMITIES: No cyanosis or clubbing. No edema. NEUROLOGIC: Left-sided hemiplegia. without change SKIN: Exam noted and reviewed. reviewed and edited Accucheck: 165 MASSIEL SPENCER May 08, 2017 08:12
[2017-05-08] MEDS: Multivitamins W/Minerals 15 ML UDC NG SCH (09:01)
[2017-05-08] MEDS: Ascorbic Acid 500mg tab ORAL SCH (09:01)
[2017-05-08] MEDS: Aspirin Baby 81mg NG SCH (09:02)
[2017-05-08] MEDS: Docusate 100mg/10ml Liq NG SCH (09:02)
[2017-05-08] MEDS: Metoprolol 50mg tab ORAL SCH (09:03)
[2017-05-08] MEDS: Heparin 5000 units/ml inj SUBQ SCH (09:05)
[2017-05-08] MEDS: Levemir Flexpen SUBQ SCH (09:09)
[2017-05-08] MEDS ORDERED: Hydrocortisone 2.5% Oint 30gm TOPIC PRN (10:45)
[2017-05-08] MEDS: LORazepam Inj 2mg/ml 1ml IV PRN (11:17)
--- NOTE | 2017-05-08 11:30 | Infectious Diseases Prog Note ---
Assessment/Plan Assessment/Plan antibiotics : none A 1. e.coli sepsis secondary to UTI s/p rx 2. e.coli UTI s/p rx 3. leucocytosis resolved 4. renal failure resolved 5. DM 6. HTN 7. nasal MRSA colonization P 1. continue off antibiotics Subjective ROS Limited/Unobtainable: Yes Allergies: Coded Allergies: PENICILLINS (Verified Allergy, Unknown, 03/18/17) Objective Vital Signs Last 24 Hour Vital Signs Date Time Temp Pulse Resp B/P Pulse Ox O2 Delivery O2 Flow Rate FiO2 05/08/17 09:03 88 133/60 05/08/17 08:00 97.6 88 20 133/60 98 Nasal Cannula 2.0 05/08/17 08:00 90 05/08/17 04:23 97.6 82 18 148/69 99 Nasal Cannula 2.0 05/08/17 04:00 77 05/08/17 03:31 97.6 05/08/17 00:28 97.4 81 18 149/67 100 Nasal Cannula 2.0 05/08/17 00:00 70 05/07/17 21:00 Nasal Cannula 2.0 28 05/07/17 21:00 97 Nasal Cannula 2.0 28 05/07/17 20:50 84 121/55 05/07/17 20:38 97.4 84 18 121/55 98 Nasal Cannula 2.0 05/07/17 20:00 83 05/07/17 16:00 97.3 76 18 126/60 97 Nasal Cannula 2.0 05/07/17 16:00 66 05/07/17 12:29 83 104/59 05/07/17 12:00 72 Height (Feet): 5 Height (Inches): 3.00 Weight (Pounds): 150 Respiratory/Chest: lungs clear Cardiovascular: normal rate, regular rhythm, no gallop/murmur Abdomen: soft, non tender Extremities: no edema, other - right arm PICC CARON ARIAS May 08, 2017 11:30
[2017-05-08 12:00] VITALS: BP_SYST 149; BP_SYST 94; BP_DIAS 59; BP_DIAS 79
[2017-05-08] MEDS ORDERED: LORazepam 1mg tab ORAL PRN (12:15)
[2017-05-08] MEDS ORDERED: Norco 5mg/325mg tab ORAL PRN (12:15)
[2017-05-08] MEDS ORDERED: Aspirin Baby 81mg ORAL SCH (13:22)
[2017-05-08] MEDS ORDERED: NS Irrig 1000ml ONE (15:29)
[2017-05-08] MEDS ORDERED: D5 1/2NS 1000ml IV ONE (15:29)
--- NOTE | 2017-05-08 16:31 | Progress Note ---
DATE: 05/08/2017 CARDIOLOGY PROGRESS NOTE SUBJECTIVE: The patient is in no distress at this time, but has episodes of pain and anxiety. OBJECTIVE: VITAL SIGNS: Her blood pressure ranges labile of 94/59 to 148/69 and heart rate in the 80s, sinus rhythm. LUNGS: Good breath sounds. No wheezing. CARDIAC: Regular rhythm and rate. Normal S1 and S2 with a fourth heart sound. ABDOMEN: Soft. EXTREMITIES: No edema. Perfusion is normal. IMPRESSION: 1. Recovered sepsis due to Escherichia coli urinary tract infection. 2. Acute renal failure, resolved. 3. Acute myocardial infarction on medical therapy and hemodynamically stable. PLAN: Continue current medical therapy. She is off antibiotics. Cardiac regimen has been reviewed. The patient is stable to return to subacute facility for long-term care. William Mckeon M.D. DR: BHAVESH JOB#: [id number] CC:
[2017-05-08] MEDS ORDERED: Docusate 100mg cap ORAL SCH (18:00)
[2017-05-09] MEDS ORDERED: Multivitamin w/Minerals tab ORAL SCH (09:00)
== END 2017-05-08 15:30 | DRG 871 ==
LOC: EDBD 11:35 → EMR 12:15 → ICU 12:16 → EDBEDREQ 14:13 → EDBEDREQSVC 15:40 → EDBEDREQ 16:28 → 2W 05-01 19:46
PROC: 06HM33Z Insertion of Infusion Device into Right Femoral Vein, Percutaneous Approach (ICD-10-PCS; principal; 2017-04-27)
PROC: 02HV33Z Insertion of Infusion Device into Superior Vena Cava, Percutaneous Approach (ICD-10-PCS; 2017-05-04)
PROC: B548ZZA Ultrasonography of Superior Vena Cava, Guidance (ICD-10-PCS; 2017-05-04)
DX: A41.51 Sepsis due to Escherichia coli [E. coli] (principal); R65.21 Severe sepsis with septic shock; I21.3 ST elevation (STEMI) myocardial infarction of unspecified site; E43 Unspecified severe protein-calorie malnutrition; G92 Toxic encephalopathy; N17.9 Acute kidney failure, unspecified; I50.33 Acute on chronic diastolic (congestive) heart failure; I27.2 Other secondary pulmonary hypertension; J18.9 Pneumonia, unspecified organism; E83.42 Hypomagnesemia; N39.0 Urinary tract infection, site not specified; I13.0 Hypertensive heart and chronic kidney disease with heart failure and stage 1 through stage 4 chronic kidney disease, or unspecified chronic kidney disease; I69.954 Hemiplegia and hemiparesis following unspecified cerebrovascular disease affecting left non-dominant side; E87.0 Hyperosmolality and hypernatremia; Z68.26 Body mass index [BMI] 26.0-26.9, adult; E11.22 Type 2 diabetes mellitus with diabetic chronic kidney disease; N18.9 Chronic kidney disease, unspecified; D64.9 Anemia, unspecified; I48.0 Paroxysmal atrial fibrillation; R09.02 Hypoxemia; E87.6 Hypokalemia; E86.0 Dehydration
CPT/HCPCS: 36415; 36569; 36600; 70450; 71010; 74000; 76700; 76937; 80048; 80053; 80061; 81003; 82140; 82550; 82553; 82803; 82962; 83036; 83605; 83735; 83880; 84484; 85007; 85025; 85610; 85730; 86850; 86900; 86901; 87040; 87081; 87086; 87181; 93005; 93306; 94760; 95819; J1815; S5561

== ENCOUNTER 2017-09-12 18:25 | Inpatient (IN) | payer MEDICARE, OTHER ==
[~2017-09-12] VITALS: Ht 170.2 cm; Wt 60.3 kg
[2017-09-12 19:10] LABS: BASOPHILS % (AUTO) 1.2 % (0.0-2.0); HEMATOCRIT 32.4 % (37.0-47.0); HEMOGLOBIN 10.6 G/DL (12.0-16.0); LYMPHOCYTES % (AUTO) 23.2 % (20.0-45.0); MEAN CORPUSCULAR VOLUME 83 FL (80-99); MONOCYTES % (AUTO) 6.4 % (1.0-10.0); NEUTROPHILS % (AUTO) 64.3 % (45.0-75.0); PLATELET COUNT 281 K/UL (150-450); RED BLOOD COUNT 3.89 M/UL (4.20-5.40); RED CELL DISTRIBUTION WIDTH 14.5 % (11.6-14.8); WHITE BLOOD COUNT 9.5 K/UL (4.8-10.8)
[2017-09-12 19:27] LABS: AMMONIA 26 umol/L (11.2-31.7)
[2017-09-12 19:30] VITALS: BP 118/68
[2017-09-12 19:33] LABS: ALANINE AMINOTRANSFERASE 18 U/L (12-78); ALBUMIN 2.8 G/DL (3.4-5.0); ALBUMIN/GLOBULIN RATIO 0.5 (1.0-2.7); ALKALINE PHOSPHATASE 103 U/L (46-116); ANION GAP 11 mmol/L (5-15); ASPARTATE AMINO TRANSFERASE 39 U/L (15-37); BILIRUBIN,TOTAL 0.4 MG/DL (0.2-1.0); BLOOD UREA NITROGEN 38 mg/dL (7-18); CALCIUM 8.8 MG/DL (8.5-10.1); CARBON DIOXIDE 21 MMOL/L (21-32); CHLORIDE 106 MMOL/L (98-107); CREATININE 1.4 MG/DL (0.55-1.30); POTASSIUM 5.2 MMOL/L (3.5-5.1); SODIUM 138 MMOL/L (136-145)
[2017-09-12 20:10] VITALS: BP 122/70
[2017-09-12 20:37] LABS: APPEARANCE,URINE CLOUDY; BILIRUBIN, URINE NEGATIVE (NEGATIVE); COLOR,URINE PALE YELLOW; GLUCOSE, URINE (UA) 3+ (NEGATIVE); KETONES,URINE NEGATIVE (NEGATIVE); LEUKOCYTE ESTERASE ,URINE 3+ (NEGATIVE); NITRITE,URINE NEGATIVE (NEGATIVE); PH,URINE 5 (4.5-8.0); PROTEIN,URINE 3+ (NEGATIVE); UROBILINOGEN,URINE NORMAL MG/DL (0.0-1.0)
[2017-09-12] MEDS ORDERED: Milk of Magnesia 30ml Ud ORAL SCH (21:15)
[2017-09-12] MEDS ORDERED: Fleet's Enema 133ml RECTAL PRN (21:15)
[2017-09-12] MEDS ORDERED: cefTRIAXone 1 GM in NS 55 ML IVPB ONE (21:45)
[2017-09-12 21:55] VITALS: BP 128/72
[2017-09-12 23:13] VITALS: BP 121/66
[2017-09-13] MEDS ORDERED: Vancomycin 1gm inj IVPB ONE (00:41)
[2017-09-13] MEDS: Vancomycin 1gm in D5W 275ml IVPB SCH ×2 (00:49→22:04)
--- NOTE | 2017-09-13 02:28 | Emergency Room Report ---
History of Present Illness General Chief Complaint: Altered Mental Status Source: EMS Present Illness HPI Patient presents with ALOC. Had transient decreased mentation. Usually responsive and conversant, but had decreased mentation. This was transient and resolved when paramedics arrived. They report the staff said the patient's pupils were sluggish. Patient not feeling well. Denies CP, dyspnea, NVD, increased weakness, headache , rashes. No dysuria. L hemiparesis from prior CVA. The patient was admitted in April. Discharge Dx: 1. Severe septic shock. 2. Urinary tract infection. 3. Possible pneumonia. 4. Acute encephalopathy secondary to metabolic derangement and underlying infection. 5. Acute renal failure secondary to shock, prerenal, resolved. 6. Acute myocardial infarction. 7. Acute on chronic congestive heart failure, resolved. 8. 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 9. Diabetes mellitus type 2. 10. Microcytic anemia. 11. Dysphagia. 12. Aspiration risk. 13. Severe protein-calorie malnutrition. 14. Severe pulmonary hypertension. 15. Sacral decubitus stage III, present on admission. Allergies: Coded Allergies: PENICILLINS (Verified Allergy, Unknown, 03/18/17) Patient History Limited by: medical condition Past Medical History: see triage record, old chart reviewed Social History: Denies: smoking, alcohol use, drug use Social History Narrative SNF Reviewed Nursing Documentation: PMH: Agreed, PSxH: Agreed Nursing Documentation-PMH Past Medical History Deferred: Pt Cognitively Impaired Past Medical History: No History, Except For Hx Cardiac Problems: Yes Hx Hypertension: Yes Hx Diabetes: Yes - Type 2 Hx Cancer: No Hx Gastrointestinal Problems: No Hx Neurological Problems: Yes Hx Cerebrovascular Accident: Yes Hx Dementia: Yes Hx Amyotrophic Lat Sclerosis: Yes Hx Memory Loss: Yes Hx Weakness: Yes Hx Fatigue: Yes Review of Systems All Other Systems: negative except mentioned in HPI Physical Exam Vital Signs Date Time Temp Pulse Resp B/P (MAP) Pulse Ox O2 Delivery O2 Flow Rate FiO2 09/12/17 18:25 97.9 73 16 120/60 99 Room Air Sp02 EP Interpretation: reviewed, normal General Appearance: alert, mild distress, Chronically Ill Head: normocephalic Eyes: bilateral eye normal inspection, bilateral eye PERRL ENT: moist mucus membranes Neck: supple Respiratory: lungs clear, normal breath sounds Cardiovascular #1: regular rate, rhythm Cardiovascular #2: 2+ radial (R) Gastrointestinal: normal inspection, normal bowel sounds, non tender, no mass, non-distended Musculoskeletal: back normal, decreased range of motion - L hemiparesis with contractures Neurologic: alert, motor weakness - L sided, oriented - X2 Psychiatric: other - moaning Skin: normal inspection, warm/dry, other - decubitus Medical Decision Making Diagnostic Impression: Primary Impression: UROSEPSIS Additional Impressions: Altered mental status Qualified Codes: R40.4 - Transient alteration of awareness old massive R MCA stroke ER Course Patient with altered sensorium, prior CVA. Improved at this time. DDx: AMI, CVA extension, electrolyte abnormality, UTI, sepsis amongst others. Emergent evaluation with EKG, CXR, labs. Treatment with gentle hydration. Labs with pyuria and renal insufficiency. Antibiotics initiated. Due to co-morbidities and evidence of altered sensorium with UTI, admit for IV antibiotics and observation. Admit med, Dr. Dodge. Laboratory Tests Test 09/12/17 18:40 09/12/17 20:10 White Blood Count 9.5 K/UL (4.8-10.8) Red Blood Count 3.89 M/UL (4.20-5.40) L Hemoglobin 10.6 G/DL (12.0-16.0) L Hematocrit 32.4 % (37.0-47.0) L Mean Corpuscular Volume 83 FL (80-99) Mean Corpuscular Hemoglobin 27.2 PG (27.0-31.0) Mean Corpuscular Hemoglobin Concent 32.6 G/DL (32.0-36.0) Red Cell Distribution Width 14.5 % (11.6-14.8) Platelet Count 281 K/UL (150-450) Mean Platelet Volume 6.4 FL (6.5-10.1) L Neutrophils (%) (Auto) 64.3 % (45.0-75.0) Lymphocytes (%) (Auto) 23.2 % (20.0-45.0) Monocytes (%) (Auto) 6.4 % (1.0-10.0) Eosinophils (%) (Auto) 5.0 % (0.0-3.0) H Basophils (%) (Auto) 1.2 % (0.0-2.0) Sodium Level 138 MMOL/L (136-145) Potassium Level 5.2 MMOL/L (3.5-5.1) H Chloride Level 106 MMOL/L (98-107) Carbon Dioxide Level 21 MMOL/L (21-32) Anion Gap 11 mmol/L (5-15) Blood Urea Nitrogen 38 mg/dL (7-18) H Creatinine 1.4 MG/DL (0.55-1.30) H Estimate Glomerular Filtration Rate 37.5 mL/min (>60) Glucose Level 212 MG/DL (74-106) H Lactic Acid Level 1.40 mmol/L (0.66-2.22) Calcium Level 8.8 MG/DL (8.5-10.1) Total Bilirubin 0.4 MG/DL (0.2-1.0) Aspartate Amino Transferase (AST) 39 U/L (15-37) H Alanine Aminotransferase (ALT) 18 U/L (12-78) Alkaline Phosphatase 103 U/L (46-116) Ammonia 26 umol/L (11.2-31.7) Troponin I 0.004 ng/mL (0.000-0.056) Total Protein 8.1 G/DL (6.4-8.2) Albumin 2.8 G/DL (3.4-5.0) L Globulin 5.3 g/dL Albumin/Globulin Ratio 0.5 (1.0-2.7) L Salicylates Level 0.4 ug/mL (2.8-20) L Acetaminophen Level < 10 MCG/ML (10-30) L Serum Alcohol < 3 mg/dL Urine Color Pale yellow Urine Appearance Cloudy Urine pH 5 (4.5-8.0) Urine Specific [place] 1.020 (1.005-1.035) Urine Protein 3+ (NEGATIVE) H Urine Glucose (UA) 3+ (NEGATIVE) H Urine Ketones Negative (NEGATIVE) Urine Occult Blood 5+ (NEGATIVE) H Urine Nitrite Negative (NEGATIVE) Urine Bilirubin Negative (NEGATIVE) Urine Urobilinogen Normal MG/DL (0.0-1.0) Urine Leukocyte Esterase 3+ (NEGATIVE) H Urine RBC 15-20 /HPF (0 - 2) H Urine WBC 40-60 /HPF (0 - 2) H Urine Squamous Epithelial Cells Few /LPF (NONE/OCC) Urine Bacteria Many /HPF (NONE) H Urine Opiates Screen Negative (NEGATIVE) Urine Barbiturates Screen Negative (NEGATIVE) Phencyclidine (PCP) Screen Negative (NEGATIVE) Urine Amphetamines Screen Negative (NEGATIVE) Urine Benzodiazepines Screen Negative (NEGATIVE) Urine Cocaine Screen Negative (NEGATIVE) Urine Marijuana (THC) Screen Negative (NEGATIVE) EKG Diagnostic Results Rate: normal Rhythm: NSR ST Segments: no acute changes Rhythm Strip Diag. Results EP Interpretation: yes Rhythm: NSR, no PVC's, no ectopy Chest X-Ray Diagnostic Results Chest X-Ray Diagnostic Results : Chest X-Ray Ordered: Yes # of Views/Limited/Complete: 1 View Indication: Other Interpretation: no consolidation, no effusion, no pneumothorax, no acute cardiopulmonary disease Impression: No acute disease Electronically Signed by: William Brambila MD Last Vital Signs Date Time Temp Pulse Resp B/P (MAP) Pulse Ox O2 Delivery O2 Flow Rate FiO2 09/12/17 23:13 97.7 83 18 121/66 97 Room Air Status: improved Disposition: ADMITTED INPATIENT Condition: Serious Referrals: KORTNEY DODGE (PCP) William Brambila M.D. Sep 13, 2017 02:28
[2017-09-13 04:00] VITALS: BP 134/60
[2017-09-13 05:00] VITALS: BP 134/60
[2017-09-13] MEDS: LORazepam 0.5mg tab ORAL PRN ×3 (06:07→22:04)
[2017-09-13] MEDS: NovoLOG Insulin Flexpen SUBQ SCH ×4 (06:12→20:22)
[2017-09-13 08:00] VITALS: BP 137/54
[2017-09-13] MEDS: Cefepime HCl 1 GM in D5W 55 ML IVPB SCH ×2 (08:25→20:00)
[2017-09-13] MEDS: Lyrica 25mg cap ORAL SCH ×3 (08:29→17:09)
[2017-09-13] MEDS: Aspirin EC 81mg tab ORAL SCH (08:29)
[2017-09-13] MEDS: Docusate 100mg cap ORAL SCH ×2 (08:29→17:09)
[2017-09-13] MEDS: Heparin 5000 units/ml inj SUBQ SCH ×2 (08:30→20:21)
[2017-09-13] MEDS: Levemir Flexpen SUBQ SCH ×2 (08:31→20:22)
[2017-09-13] MEDS ORDERED: Tubing IV Secondary IV ONE (09:24)
[2017-09-13] MEDS ORDERED: D5W 275ml ONE (09:24)
[2017-09-13 11:07] LABS: BASOPHILS % (AUTO) 0.7 % (0.0-2.0); EOSINOPHILS % (AUTO) 3.3 % (0.0-3.0); HEMATOCRIT 36.1 % (37.0-47.0); HEMOGLOBIN 11.1 G/DL (12.0-16.0); LYMPHOCYTES % (AUTO) 11.4 % (20.0-45.0); MEAN CORPUSCULAR VOLUME 83 FL (80-99); MONOCYTES % (AUTO) 4.5 % (1.0-10.0); NEUTROPHILS % (AUTO) 80.2 % (45.0-75.0); PLATELET COUNT 309 K/UL (150-450); RED BLOOD COUNT 4.32 M/UL (4.20-5.40); RED CELL DISTRIBUTION WIDTH 14.7 % (11.6-14.8); WHITE BLOOD COUNT 9.9 K/UL (4.8-10.8)
--- NOTE | 2017-09-13 11:09 | Wound Care Consultation ---
Wound Assessment Wound Assessment #1: Wound Number: 1 Wound Present on Admission: Yes New Wound: No Status Change of Wound: No Wound Location Body Site Modif: mid Wound Location Body Site: other - Sacrococcygeal extending to left buttock and left ischial tuberosity Wound Type: pressure ulcer Michelle Test: Does not Michelle Pressure Ulcer Stage: III - sacattered Wound Thickness: Full Thickness Wound Length: 15.0 Wound Width: 5.5 Wound Depth: 0.2 Percent of Wound [place]/Red: 100 Wound Drainage Description: Serosanguineous Wound Drainage Amount: Scant Wound Drainage Odor: None/Absent Tissue Surrounding Wound: full thickness scar tissue Wound General Appearance: Reddened, Draining Wound Assessment #2: Wound Number: 2 Wound Present on Admission: Yes New Wound: No Status Change of Wound: No Wound Location Body Site Modif: left, lateral Wound Location Body Site: malleolus/ankle Wound Type: pressure ulcer Michelle Test: Does not Michelle Pressure Ulcer Stage: Unstageable Wound Thickness: Full Thickness Wound Length: 3.0 Wound Width: 3.0 Wound Depth: utd Percent of Wound [place]/Red: 20 Percent of Wound Bed Yellow/Wh: 80 Wound Drainage Description: Serosanguineous Wound Drainage Amount: Moderate Wound Drainage Odor: None/Absent Tissue Surrounding Wound: Macerated Wound General Appearance: Reddened - yellow, Draining Wound Assessment #3: Wound Number: 3 Wound Present on Admission: Yes New Wound: No Status Change of Wound: No Wound Location Body Site Modif: right Wound Location Body Site: heel Wound Type: pressure ulcer Michelle Test: Does not Michelle Pressure Ulcer Stage: Deep Tissue Injury Wound Thickness: Full Thickness Wound Length: 3.5 Wound Width: 3.5 Wound Depth: utd Percent of Wound Purple/Maroon: 100 Wound Drainage Amount: None Wound Drainage Odor: None/Absent Tissue Surrounding Wound: Erythemic Wound General Appearance: Reddened - purple Wound Comment #1 Left lateral malleolus unstageable pressure ulcer #2 Sacrococcygeal scattered stage III pressure ulcer that extended to left buttock and left ischial tuberosity. Surrounding skin with full thickness scar tissue #3 Right heel DTI pressure ulcer #4 Rashes on left armpit area Recommendation -Sacrococcygeal scattered stage III pressure ulcer that extended to left buttock and left ischial tuberosity. Cleanse with saline, pat dry, apply Triad cream, cover with Biatain silicone drg daily and PRN soiled/dislodged -Left lateral malleolus unstageable pressure ulcer Cleanse with saline, pat dry, apply Therahoney gel to wound bed, cover with Biatain silicone daily and PRN soiled/dislodged -Local wound care per protocol for DTI and rashes -Keep Clean and dry -Turn and reposition -Optimize nutrition -Offload both heels -Heel protector on both heels -Assess and f/u accordingly for any changes MINNIE MILLER RN Sep 13, 2017 11:09
--- NOTE | 2017-09-13 11:09 | Diagnostic Imaging Report ---
Indication: Cough Technique: CHEST 1 VIEW. Comparison: 05/04/17 Findings: The cardiomediastinal silhouette is stable. There are no acute infiltrates. The lungs are clear. No pleural fluid. Impression: No acute abnormality. .
--- NOTE | 2017-09-13 11:09 | Diagnostic Imaging Report ---
Indication: Altered mental status Technique: Continuous helical CT scanning of the head was performed without intravenous contrast material. Axial and coronal 5 mm sections were generated. Dose: Total Dose Length Product - DLP [address] Dose Index - CTDIvol(s) 70.38 mGy. Comparison: 04/30/2017 Findings: Compared to previous examination again noted is a large area of encephalomalacia in the territory for the right middle cerebral artery. Bifrontal extra-axial low-density fluid collections are again seen. There is no midline shift. The ventricles are dilated. There is periventricular low density. Impression: Encephalomalacia right middle cerebral artery territory, unchanged. Atrophy. Chronic small vessel white matter ischemic change. Bifrontal low-density fluid collections. Possibilities include old subdural hygromas or subdural hematomas these are essentially unchanged. No significant change from prior examination. The CT scanner at [facility] is accredited by the [employer] and the scans are performed using protocols designed to limit radiation exposure to as low as reasonably achievable to attain images of sufficient resolution adequate for diagnostic evaluation.
--- NOTE | 2017-09-13 11:09 | Diagnostic Imaging Report ---
Indication: Altered mental status Technique: Continuous helical CT scanning of the head was performed without intravenous contrast material. Axial and coronal 5 mm sections were generated. Dose: Total Dose Length Product - DLP [address] Dose Index - CTDIvol(s) 70.38 mGy. Comparison: 04/30/2017 Findings: Compared to previous examination again noted is a large area of encephalomalacia in the territory for the right middle cerebral artery. Bifrontal extra-axial low-density fluid collections are again seen. There is no midline shift. The ventricles are dilated. There is periventricular low density. Impression: Encephalomalacia right middle cerebral artery territory, unchanged. Atrophy. Chronic small vessel white matter ischemic change. Bifrontal low-density fluid collections. Possibilities include old subdural hygromas or subdural hematomas these are essentially unchanged. No significant change from prior examination. The CT scanner at [facility] is accredited by the [employer] and the scans are performed using protocols designed to limit radiation exposure to as low as reasonably achievable to attain images of sufficient resolution adequate for diagnostic evaluation.
[2017-09-13 11:56] LABS: ALANINE AMINOTRANSFERASE 15 U/L (12-78); ALBUMIN/GLOBULIN RATIO 0.5 (1.0-2.7); ALKALINE PHOSPHATASE 103 U/L (46-116); ANION GAP 9 mmol/L (5-15); ASPARTATE AMINO TRANSFERASE 15 U/L (15-37); BILIRUBIN,TOTAL 0.4 MG/DL (0.2-1.0); BLOOD UREA NITROGEN 27 mg/dL (7-18); CALCIUM 9.1 MG/DL (8.5-10.1); CARBON DIOXIDE 25 MMOL/L (21-32); CHLORIDE 108 MMOL/L (98-107); CREATININE 1.2 MG/DL (0.55-1.30); POTASSIUM 3.4 MMOL/L (3.5-5.1); SODIUM 142 MMOL/L (136-145)
[2017-09-13 12:00] VITALS: BP 137/76
[2017-09-13] MEDS ORDERED: KCl 10% 40mEq/30ml liquid NG ONE (13:30)
[2017-09-13 16:00] VITALS: BP 107/62
--- NOTE | 2017-09-13 19:30 | History and Physical Report ---
DATE OF ADMISSION: 09/12/2017 CHIEF COMPLAINT: Altered mental status, sepsis, and UTI. HISTORY OF PRESENT ILLNESS: The patient is a 67-year-old female with history of stroke, hypertension, and diabetes. She presented from a group home facility after she was found poorly responsive by staff. On evaluation in the emergency room, the patient had a CT of the head that was negative. She was diagnosed with urinary tract infection and possible sepsis. She is currently more awake and alert after being started on hydration and IV antibiotics. She is now admitted for further evaluation and care. PAST MEDICAL HISTORY: As above. PAST SURGICAL HISTORY: None. CURRENT MEDICATIONS: Reconciled and reviewed. ALLERGIES: Include penicillin. SOCIAL HISTORY: There is no known history of tobacco, ethanol, or drugs. FAMILY HISTORY: Noncontributory. REVIEW OF SYSTEMS: GENERAL: No fever or chills. HEENT: No headaches or visual changes. CARDIOPULMONARY: No chest pain or shortness of breath. GASTROINTESTINAL: No nausea or vomiting. GENITOURINARY: No urgency or frequency. MUSCULOSKELETAL: No joint pain or swelling. NEUROLOGIC: No evidence of seizures. Positive history of stroke with left-sided weakness. PHYSICAL EXAMINATION: VITAL SIGNS: Temperature 97, pulse 102, respirations 18, and blood pressure 137/54. GENERAL: The patient is a well-developed female, awake, alert, and oriented x4. NECK: Supple. No jugular venous distention. HEART: Regular rate and rhythm. LUNGS: Lungs are clear. ABDOMEN: Soft, nontender, and nondistended. EXTREMITIES: No clubbing, cyanosis, or edema. The patient has left-sided hemiparesis that is old. LABORATORY DATA: Sodium 138, potassium 5.2, BUN 38, and creatinine 1.4. Lactic acid was 1.4. Troponin was 0.004. UA showed 40 to 60 WBCs. White count was 10,000. ASSESSMENT: This is a pleasant female, admitted with complaints of: 1. Toxic metabolic encephalopathy secondary to sepsis from urinary tract infection. 2. Probable sepsis. 3. Urinary tract infection. 4. Prior history of stroke. 5. Hypertension. 6. Chronic obstructive pulmonary disease. 7. History of dysphagia. PLAN: IV fluids. IV antibiotics. Follow up cultures. Continue outpatient cardiac and diabetic regimen. Francis Jones M.D. DR: MARY JOB#: [id number] CC:
[2017-09-13 20:00] VITALS: BP 127/63
[2017-09-13] MEDS: Atorvastatin 80mg tab ORAL SCH (20:20)
[2017-09-14] VITALS: BP 115/45
[2017-09-14 04:00] VITALS: BP 129/99
[2017-09-14] MEDS: NovoLOG Insulin Flexpen SUBQ SCH ×4 (06:09→21:33)
[2017-09-14 08:00] VITALS: BP 158/78
--- NOTE | 2017-09-14 08:39 | General Progress Note ---
Assessment/Plan Problem List: (1) Toxic metabolic encephalopathy ICD Codes: G92 - Toxic encephalopathy SNOMED: 446655073 (2) UTI (urinary tract infection) ICD Codes: N39.0 - Urinary tract infection, site not specified SNOMED: 44066590 (3) Sepsis ICD Codes: A41.9 - Sepsis, unspecified organism SNOMED: 61738974 (4) ARF (acute renal failure) ICD Codes: N17.9 - Acute kidney failure, unspecified SNOMED: 74806950 (5) Persistant verbal unresponciveness, multifactorial. (6) Altered mental status ICD Codes: R41.82 - Altered mental status, unspecified SNOMED: 910834268 Qualifiers: Qualified Codes: R40.4 - Transient alteration of awareness Status: stable, progressing Assessment/Plan iv abx follow up cultures antiplt rx skin care pain rx ivf monitor labs Subjective ROS Limited/Unobtainable: No Constitutional: Reports: malaise, weakness HEENT: Reports: no symptoms Cardiovascular: Reports: no symptoms Respiratory: Reports: cough Gastrointestinal/Abdominal: Reports: no symptoms Genitourinary: Reports: no symptoms Neurologic/Psychiatric: Reports: pre-existing deficit Endocrine: Reports: no symptoms Hematologic/Lymphatic: Reports: no symptoms Allergies: Coded Allergies: PENICILLINS (Verified Allergy, Unknown, 03/18/17) All Systems: reviewed and negative except above Subjective less anxious today. no fever or chills. no headaches, compliant with meds. Objective Last 24 Hour Vital Signs Date Time Temp Pulse Resp B/P (MAP) Pulse Ox O2 Delivery O2 Flow Rate FiO2 09/14/17 04:00 97.7 121 21 129/99 100 Room Air 09/14/17 00:00 97.9 81 20 115/45 99 Room Air 09/13/17 20:00 97.7 91 20 127/63 100 Room Air 09/13/17 18:08 97.7 09/13/17 16:00 97.7 95 17 107/62 99 Room Air 09/13/17 12:00 97.9 113 17 137/76 98 Room Air Laboratory Tests 09/13/17 10:15: White Blood Count 9.9, Red Blood Count 4.32, Hemoglobin 11.1L, Hematocrit 36.1L , Mean Corpuscular Volume 83, Mean Corpuscular Hemoglobin 25.7L, Mean Corpuscular Hemoglobin Concent 30.8L, Red Cell Distribution Width 14.7, Platelet Count 309, Mean Platelet Volume 6.4L, Neutrophils (%) (Auto) 80.2H, Lymphocytes (%) (Auto) 11.4L, Monocytes (%) (Auto) 4.5, Eosinophils (%) (Auto) 3.3H, Basophils (%) (Auto) 0.7, Sodium Level 142, Potassium Level 3.4L, Chloride Level 108H, Carbon Dioxide Level 25, Anion Gap 9, Blood Urea Nitrogen 27H, Creatinine 1.2, Estimat Glomerular Filtration Rate 44.8, Glucose Level 220H , Calcium Level 9.1, Total Bilirubin 0.4, Aspartate Amino Transf (AST/SGOT) 15, Alanine Aminotransferase (ALT/SGPT) 15, Alkaline Phosphatase 103, Total Protein 8.6H, Albumin 3.0L, Globulin 5.6, Albumin/Globulin Ratio 0.5L Height (Feet): 5 Height (Inches): 7.00 Weight (Pounds): 133 General Appearance: WD/WN, alert Neck: supple Cardiovascular: normal peripheral pulses, normal rate, regular rhythm Respiratory/Chest: chest wall non-tender, lungs clear, normal breath sounds, no respiratory distress Abdomen: normal bowel sounds, non tender, soft, no organomegaly Edema: no edema noted Arm (L), no edema noted Arm (R), no edema noted Leg (L), no edema noted Leg (R), no edema noted Pedal (L), no edema noted Pedal (R), no edema noted 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
--- NOTE | 2017-09-14 08:39 | General Progress Note ---
Assessment/Plan Problem List: (1) Toxic metabolic encephalopathy ICD Codes: G92 - Toxic encephalopathy SNOMED: 193064082 (2) UTI (urinary tract infection) ICD Codes: N39.0 - Urinary tract infection, site not specified SNOMED: 14765040 (3) Sepsis ICD Codes: A41.9 - Sepsis, unspecified organism SNOMED: 72851919 (4) ARF (acute renal failure) ICD Codes: N17.9 - Acute kidney failure, unspecified SNOMED: 89786241 (5) Persistant verbal unresponciveness, multifactorial. (6) Altered mental status ICD Codes: R41.82 - Altered mental status, unspecified SNOMED: 997258459 Qualifiers: Qualified Codes: R40.4 - Transient alteration of awareness Status: stable, progressing Assessment/Plan iv abx follow up cultures antiplt rx skin care pain rx ivf monitor labs Subjective ROS Limited/Unobtainable: No Constitutional: Reports: malaise, weakness HEENT: Reports: no symptoms Cardiovascular: Reports: no symptoms Respiratory: Reports: cough Gastrointestinal/Abdominal: Reports: no symptoms Genitourinary: Reports: no symptoms Neurologic/Psychiatric: Reports: pre-existing deficit Endocrine: Reports: no symptoms Hematologic/Lymphatic: Reports: no symptoms Allergies: Coded Allergies: PENICILLINS (Verified Allergy, Unknown, 03/18/17) All Systems: reviewed and negative except above Subjective less anxious today. no fever or chills. no headaches, compliant with meds. Objective Last 24 Hour Vital Signs Date Time Temp Pulse Resp B/P (MAP) Pulse Ox O2 Delivery O2 Flow Rate FiO2 09/14/17 04:00 97.7 121 21 129/99 100 Room Air 09/14/17 00:00 97.9 81 20 115/45 99 Room Air 09/13/17 20:00 97.7 91 20 127/63 100 Room Air 09/13/17 18:08 97.7 09/13/17 16:00 97.7 95 17 107/62 99 Room Air 09/13/17 12:00 97.9 113 17 137/76 98 Room Air Laboratory Tests 09/13/17 10:15: White Blood Count 9.9, Red Blood Count 4.32, Hemoglobin 11.1L, Hematocrit 36.1L , Mean Corpuscular Volume 83, Mean Corpuscular Hemoglobin 25.7L, Mean Corpuscular Hemoglobin Concent 30.8L, Red Cell Distribution Width 14.7, Platelet Count 309, Mean Platelet Volume 6.4L, Neutrophils (%) (Auto) 80.2H, Lymphocytes (%) (Auto) 11.4L, Monocytes (%) (Auto) 4.5, Eosinophils (%) (Auto) 3.3H, Basophils (%) (Auto) 0.7, Sodium Level 142, Potassium Level 3.4L, Chloride Level 108H, Carbon Dioxide Level 25, Anion Gap 9, Blood Urea Nitrogen 27H, Creatinine 1.2, Estimat Glomerular Filtration Rate 44.8, Glucose Level 220H , Calcium Level 9.1, Total Bilirubin 0.4, Aspartate Amino Transf (AST/SGOT) 15, Alanine Aminotransferase (ALT/SGPT) 15, Alkaline Phosphatase 103, Total Protein 8.6H, Albumin 3.0L, Globulin 5.6, Albumin/Globulin Ratio 0.5L Height (Feet): 5 Height (Inches): 7.00 Weight (Pounds): 133 General Appearance: WD/WN, alert Neck: supple Cardiovascular: normal peripheral pulses, normal rate, regular rhythm Respiratory/Chest: chest wall non-tender, lungs clear, normal breath sounds, no respiratory distress Abdomen: normal bowel sounds, non tender, soft, no organomegaly Edema: no edema noted Arm (L), no edema noted Arm (R), no edema noted Leg (L), no edema noted Leg (R), no edema noted Pedal (L), no edema noted Pedal (R), no edema noted 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
--- NOTE | 2017-09-14 08:39 | General Progress Note ---
Assessment/Plan Problem List: (1) Toxic metabolic encephalopathy ICD Codes: G92 - Toxic encephalopathy SNOMED: 650278195 (2) UTI (urinary tract infection) ICD Codes: N39.0 - Urinary tract infection, site not specified SNOMED: 94009820 (3) Sepsis ICD Codes: A41.9 - Sepsis, unspecified organism SNOMED: 96364550 (4) ARF (acute renal failure) ICD Codes: N17.9 - Acute kidney failure, unspecified SNOMED: 68865495 (5) Persistant verbal unresponciveness, multifactorial. (6) Altered mental status ICD Codes: R41.82 - Altered mental status, unspecified SNOMED: 890258912 Qualifiers: Qualified Codes: R40.4 - Transient alteration of awareness Status: stable, progressing Assessment/Plan iv abx follow up cultures antiplt rx skin care pain rx ivf monitor labs Subjective ROS Limited/Unobtainable: No Constitutional: Reports: malaise, weakness HEENT: Reports: no symptoms Cardiovascular: Reports: no symptoms Respiratory: Reports: cough Gastrointestinal/Abdominal: Reports: no symptoms Genitourinary: Reports: no symptoms Neurologic/Psychiatric: Reports: pre-existing deficit Endocrine: Reports: no symptoms Hematologic/Lymphatic: Reports: no symptoms Allergies: Coded Allergies: PENICILLINS (Verified Allergy, Unknown, 03/18/17) All Systems: reviewed and negative except above Subjective less anxious today. no fever or chills. no headaches, compliant with meds. Objective Last 24 Hour Vital Signs Date Time Temp Pulse Resp B/P (MAP) Pulse Ox O2 Delivery O2 Flow Rate FiO2 09/14/17 04:00 97.7 121 21 129/99 100 Room Air 09/14/17 00:00 97.9 81 20 115/45 99 Room Air 09/13/17 20:00 97.7 91 20 127/63 100 Room Air 09/13/17 18:08 97.7 09/13/17 16:00 97.7 95 17 107/62 99 Room Air 09/13/17 12:00 97.9 113 17 137/76 98 Room Air Laboratory Tests 09/13/17 10:15: White Blood Count 9.9, Red Blood Count 4.32, Hemoglobin 11.1L, Hematocrit 36.1L , Mean Corpuscular Volume 83, Mean Corpuscular Hemoglobin 25.7L, Mean Corpuscular Hemoglobin Concent 30.8L, Red Cell Distribution Width 14.7, Platelet Count 309, Mean Platelet Volume 6.4L, Neutrophils (%) (Auto) 80.2H, Lymphocytes (%) (Auto) 11.4L, Monocytes (%) (Auto) 4.5, Eosinophils (%) (Auto) 3.3H, Basophils (%) (Auto) 0.7, Sodium Level 142, Potassium Level 3.4L, Chloride Level 108H, Carbon Dioxide Level 25, Anion Gap 9, Blood Urea Nitrogen 27H, Creatinine 1.2, Estimat Glomerular Filtration Rate 44.8, Glucose Level 220H , Calcium Level 9.1, Total Bilirubin 0.4, Aspartate Amino Transf (AST/SGOT) 15, Alanine Aminotransferase (ALT/SGPT) 15, Alkaline Phosphatase 103, Total Protein 8.6H, Albumin 3.0L, Globulin 5.6, Albumin/Globulin Ratio 0.5L Height (Feet): 5 Height (Inches): 7.00 Weight (Pounds): 133 General Appearance: WD/WN, alert Neck: supple Cardiovascular: normal peripheral pulses, normal rate, regular rhythm Respiratory/Chest: chest wall non-tender, lungs clear, normal breath sounds, no respiratory distress Abdomen: normal bowel sounds, non tender, soft, no organomegaly Edema: no edema noted Arm (L), no edema noted Arm (R), no edema noted Leg (L), no edema noted Leg (R), no edema noted Pedal (L), no edema noted Pedal (R), no edema noted 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
[2017-09-14] MEDS: Aspirin EC 81mg tab ORAL SCH (08:45)
[2017-09-14] MEDS: Docusate 100mg cap ORAL SCH ×2 (08:45→17:13)
[2017-09-14] MEDS: Lyrica 25mg cap ORAL SCH ×3 (08:45→17:13)
[2017-09-14] MEDS: Heparin 5000 units/ml inj SUBQ SCH ×2 (08:49→21:32)
[2017-09-14] MEDS: Levemir Flexpen SUBQ SCH ×2 (08:59→21:32)
[2017-09-14] MEDS: Cefepime HCl 1 GM in D5W 55 ML IVPB SCH ×2 (09:04→21:30)
[2017-09-14] MEDS ORDERED: LORazepam Inj 2mg/ml 1ml IV PRN (10:45)
[2017-09-14 10:47] LABS: BASOPHILS % (AUTO) 1.1 % (0.0-2.0); EOSINOPHILS % (AUTO) 6.2 % (0.0-3.0); HEMATOCRIT 35.8 % (37.0-47.0); HEMOGLOBIN 11.2 G/DL (12.0-16.0); MEAN CORPUSCULAR VOLUME 85 FL (80-99); MONOCYTES % (AUTO) 5.2 % (1.0-10.0); NEUTROPHILS % (AUTO) 68.6 % (45.0-75.0); PLATELET COUNT 300 K/UL (150-450); RED BLOOD COUNT 4.19 M/UL (4.20-5.40); RED CELL DISTRIBUTION WIDTH 14.6 % (11.6-14.8); WHITE BLOOD COUNT 5.7 K/UL (4.8-10.8)
[2017-09-14] MEDS: LORazepam 0.5mg tab ORAL PRN (10:52)
[2017-09-14 11:23] LABS: ALANINE AMINOTRANSFERASE 17 U/L (12-78); ALBUMIN 2.8 G/DL (3.4-5.0); ALBUMIN/GLOBULIN RATIO 0.5 (1.0-2.7); ALKALINE PHOSPHATASE 95 U/L (46-116); ANION GAP 10 mmol/L (5-15); ASPARTATE AMINO TRANSFERASE 21 U/L (15-37); BILIRUBIN,TOTAL 0.4 MG/DL (0.2-1.0); BLOOD UREA NITROGEN 20 mg/dL (7-18); CARBON DIOXIDE 23 MMOL/L (21-32); CHLORIDE 108 MMOL/L (98-107); CREATININE 1.2 MG/DL (0.55-1.30); POTASSIUM 3.8 MMOL/L (3.5-5.1); SODIUM 141 MMOL/L (136-145)
[2017-09-14 12:00] VITALS: BP 151/77
[2017-09-14 15:52] VITALS: BP 126/57
[2017-09-14 20:00] VITALS: BP 156/76
--- NOTE | 2017-09-14 20:20 | Cardiology Report ---
APPROVED REPORT EKG Measurement Heart [id number] Normal sinus rhythm Cannot rule out Inferior infarct, age undetermined Cannot rule out Anteroseptal infarct, age undetermined Abnormal ECG
--- NOTE | 2017-09-14 20:20 | Cardiology Report ---
APPROVED REPORT EKG Measurement Heart [id number] [place] 184P70 [id number] Normal sinus rhythm Cannot rule out Inferior infarct, age undetermined Cannot rule out Anteroseptal infarct, age undetermined Abnormal ECG
--- NOTE | 2017-09-14 20:20 | Cardiology Report ---
APPROVED REPORT EKG Measurement Heart [id number] 184P70 [id number] Normal sinus rhythm Cannot rule out Inferior infarct, age undetermined Cannot rule out Anteroseptal infarct, age undetermined Abnormal ECG
[2017-09-14] MEDS: Atorvastatin 80mg tab ORAL SCH (21:30)
[2017-09-14] MEDS: Vancomycin 1gm in D5W 275ml IVPB SCH (23:09)
[2017-09-15] VITALS: BP 145/71
[2017-09-15 04:00] VITALS: BP 133/76
[2017-09-15] MEDS: NovoLOG Insulin Flexpen SUBQ SCH ×4 (06:23→20:43)
[2017-09-15] MEDS: Aspirin EC 81mg tab ORAL SCH (07:51)
[2017-09-15] MEDS: LORazepam 0.5mg tab ORAL PRN (07:51)
[2017-09-15] MEDS: Docusate 100mg cap ORAL SCH ×3 (07:51→17:23)
[2017-09-15] MEDS: Lyrica 25mg cap ORAL SCH ×3 (07:52→17:55)
[2017-09-15] MEDS: Heparin 5000 units/ml inj SUBQ SCH ×2 (07:54→20:41)
[2017-09-15 08:15] VITALS: BP 123/68
[2017-09-15] MEDS: Levemir Flexpen SUBQ SCH ×2 (08:16→20:42)
[2017-09-15] MEDS: Cefepime HCl 1 GM in D5W 55 ML IVPB SCH ×2 (08:17→20:39)
--- NOTE | 2017-09-15 10:03 | General Progress Note ---
Assessment/Plan Problem List: (1) Toxic metabolic encephalopathy ICD Codes: G92 - Toxic encephalopathy SNOMED: 881517384 (2) UTI (urinary tract infection) ICD Codes: N39.0 - Urinary tract infection, site not specified SNOMED: 98699803 (3) Sepsis ICD Codes: A41.9 - Sepsis, unspecified organism SNOMED: 31364232 (4) ARF (acute renal failure) ICD Codes: N17.9 - Acute kidney failure, unspecified SNOMED: 56304770 (5) Persistant verbal unresponciveness, multifactorial. (6) Altered mental status ICD Codes: R41.82 - Altered mental status, unspecified SNOMED: 459667757 Qualifiers: Qualified Codes: R40.4 - Transient alteration of awareness Status: stable, progressing Assessment/Plan iv abx follow up cultures antiplt rx skin care pain rx ivf monitor labs dc planning tomorrow if cultures back and cleared by ID Subjective ROS Limited/Unobtainable: No Constitutional: Reports: malaise, weakness HEENT: Reports: no symptoms Cardiovascular: Reports: no symptoms Respiratory: Reports: no symptoms Gastrointestinal/Abdominal: Reports: difficulty swallowing Genitourinary: Reports: incontinence Neurologic/Psychiatric: Reports: pre-existing deficit Endocrine: Reports: no symptoms Hematologic/Lymphatic: Reports: no symptoms Allergies: Coded Allergies: PENICILLINS (Verified Allergy, Unknown, 03/18/17) All Systems: reviewed and negative except above Subjective less anxious today. no fever or chills. no headaches, compliant with meds. on abx +cultures noted Objective Last 24 Hour Vital Signs Date Time Temp Pulse Resp B/P (MAP) Pulse Ox O2 Delivery O2 Flow Rate FiO2 09/15/17 09:05 97.6 09/15/17 08:15 97.2 96 20 123/68 99 Room Air 09/15/17 04:00 97.6 97 19 133/76 97 Room Air 09/15/17 00:00 97.6 98 20 145/71 96 Room Air 09/14/17 20:00 97.7 104 20 156/76 100 Room Air 09/14/17 15:52 97.6 100 22 126/57 96 Room Air 09/14/17 12:00 97.3 92 20 151/77 97 Room Air Intake and Output 09/15/17 09/16/17 19:00 07:00 Intake Total 240 ml Balance 240 ml Intake Oral 240 ml # Bowel Movements 1 Laboratory Tests 09/14/17 10:30: White Blood Count 5.7, Red Blood Count 4.19L, Hemoglobin 11.2L, Hematocrit 35.8L , Mean Corpuscular Volume 85, Mean Corpuscular Hemoglobin 26.7L, Mean Corpuscular Hemoglobin Concent 31.2L, Red Cell Distribution Width 14.6, Platelet Count 300, Mean Platelet Volume 6.5, Neutrophils (%) (Auto) 68.6, Lymphocytes (%) (Auto) 19.0L, Monocytes (%) (Auto) 5.2, Eosinophils (%) (Auto) 6.2H, Basophils (%) (Auto) 1.1, Sodium Level 141, Potassium Level 3.8, Chloride Level 108H, Carbon Dioxide Level 23, Anion Gap 10, Blood Urea Nitrogen 20H, Creatinine 1.2, Estimat Glomerular Filtration Rate 44.8, Glucose Level 292H, Calcium Level 9.0, Total Bilirubin 0.4, Aspartate Amino Transf (AST/SGOT) 21, Alanine Aminotransferase (ALT/SGPT) 17, Alkaline Phosphatase 95, Total Protein 8.2, Albumin 2.8L, Globulin 5.4, Albumin/Globulin Ratio 0.5L Height (Feet): 5 Height (Inches): 7.00 Weight (Pounds): 133 Objective GENERAL: The patient is a well-developed female, awake, alert, and oriented x4. NECK: Supple. No jugular venous distention. HEART: Regular rate and rhythm. LUNGS: Lungs are clear. ABDOMEN: Soft, nontender, and nondistended. EXTREMITIES: No clubbing, cyanosis, or edema. The patient has left-sided hemiparesis that is old. KORTNEY DODGE Sep 15, 2017 10:03
--- NOTE | 2017-09-15 10:03 | General Progress Note ---
Assessment/Plan Problem List: (1) Toxic metabolic encephalopathy ICD Codes: G92 - Toxic encephalopathy SNOMED: 126327041 (2) UTI (urinary tract infection) ICD Codes: N39.0 - Urinary tract infection, site not specified SNOMED: 50087590 (3) Sepsis ICD Codes: A41.9 - Sepsis, unspecified organism SNOMED: 74473615 (4) ARF (acute renal failure) ICD Codes: N17.9 - Acute kidney failure, unspecified SNOMED: 19058532 (5) Persistant verbal unresponciveness, multifactorial. (6) Altered mental status ICD Codes: R41.82 - Altered mental status, unspecified SNOMED: 908501405 Qualifiers: Qualified Codes: R40.4 - Transient alteration of awareness Status: stable, progressing Assessment/Plan iv abx follow up cultures antiplt rx skin care pain rx ivf monitor labs dc planning tomorrow if cultures back and cleared by ID Subjective ROS Limited/Unobtainable: No Constitutional: Reports: malaise, weakness HEENT: Reports: no symptoms Cardiovascular: Reports: no symptoms Respiratory: Reports: no symptoms Gastrointestinal/Abdominal: Reports: difficulty swallowing Genitourinary: Reports: incontinence Neurologic/Psychiatric: Reports: pre-existing deficit Endocrine: Reports: no symptoms Hematologic/Lymphatic: Reports: no symptoms Allergies: Coded Allergies: PENICILLINS (Verified Allergy, Unknown, 03/18/17) All Systems: reviewed and negative except above Subjective less anxious today. no fever or chills. no headaches, compliant with meds. on abx +cultures noted Objective Last 24 Hour Vital Signs Date Time Temp Pulse Resp B/P (MAP) Pulse Ox O2 Delivery O2 Flow Rate FiO2 09/15/17 09:05 97.6 09/15/17 08:15 97.2 96 20 123/68 99 Room Air 09/15/17 04:00 97.6 97 19 133/76 97 Room Air 09/15/17 00:00 97.6 98 20 145/71 96 Room Air 09/14/17 20:00 97.7 104 20 156/76 100 Room Air 09/14/17 15:52 97.6 100 22 126/57 96 Room Air 09/14/17 12:00 97.3 92 20 151/77 97 Room Air Intake and Output 09/15/17 09/16/17 19:00 07:00 Intake Total 240 ml Balance 240 ml Intake Oral 240 ml # Bowel Movements 1 Laboratory Tests 09/14/17 10:30: White Blood Count 5.7, Red Blood Count 4.19L, Hemoglobin 11.2L, Hematocrit 35.8L , Mean Corpuscular Volume 85, Mean Corpuscular Hemoglobin 26.7L, Mean Corpuscular Hemoglobin Concent 31.2L, Red Cell Distribution Width 14.6, Platelet Count 300, Mean Platelet Volume 6.5, Neutrophils (%) (Auto) 68.6, Lymphocytes (%) (Auto) 19.0L, Monocytes (%) (Auto) 5.2, Eosinophils (%) (Auto) 6.2H, Basophils (%) (Auto) 1.1, Sodium Level 141, Potassium Level 3.8, Chloride Level 108H, Carbon Dioxide Level 23, Anion Gap 10, Blood Urea Nitrogen 20H, Creatinine 1.2, Estimat Glomerular Filtration Rate 44.8, Glucose Level 292H, Calcium Level 9.0, Total Bilirubin 0.4, Aspartate Amino Transf (AST/SGOT) 21, Alanine Aminotransferase (ALT/SGPT) 17, Alkaline Phosphatase 95, Total Protein 8.2, Albumin 2.8L, Globulin 5.4, Albumin/Globulin Ratio 0.5L Height (Feet): 5 Height (Inches): 7.00 Weight (Pounds): 133 Objective GENERAL: The patient is a well-developed female, awake, alert, and oriented x4. NECK: Supple. No jugular venous distention. HEART: Regular rate and rhythm. LUNGS: Lungs are clear. ABDOMEN: Soft, nontender, and nondistended. EXTREMITIES: No clubbing, cyanosis, or edema. The patient has left-sided hemiparesis that is old. KORTNEY DODGE Sep 15, 2017 10:03
--- NOTE | 2017-09-15 10:03 | General Progress Note ---
Assessment/Plan Problem List: (1) Toxic metabolic encephalopathy ICD Codes: G92 - Toxic encephalopathy SNOMED: 702172175 (2) UTI (urinary tract infection) ICD Codes: N39.0 - Urinary tract infection, site not specified SNOMED: 29709102 (3) Sepsis ICD Codes: A41.9 - Sepsis, unspecified organism SNOMED: 25912440 (4) ARF (acute renal failure) ICD Codes: N17.9 - Acute kidney failure, unspecified SNOMED: 90836069 (5) Persistant verbal unresponciveness, multifactorial. (6) Altered mental status ICD Codes: R41.82 - Altered mental status, unspecified SNOMED: 637491078 Qualifiers: Qualified Codes: R40.4 - Transient alteration of awareness Status: stable, progressing Assessment/Plan iv abx follow up cultures antiplt rx skin care pain rx ivf monitor labs dc planning tomorrow if cultures back and cleared by ID Subjective ROS Limited/Unobtainable: No Constitutional: Reports: malaise, weakness HEENT: Reports: no symptoms Cardiovascular: Reports: no symptoms Respiratory: Reports: no symptoms Gastrointestinal/Abdominal: Reports: difficulty swallowing Genitourinary: Reports: incontinence Neurologic/Psychiatric: Reports: pre-existing deficit Endocrine: Reports: no symptoms Hematologic/Lymphatic: Reports: no symptoms Allergies: Coded Allergies: PENICILLINS (Verified Allergy, Unknown, 03/18/17) All Systems: reviewed and negative except above Subjective less anxious today. no fever or chills. no headaches, compliant with meds. on abx +cultures noted Objective Last 24 Hour Vital Signs Date Time Temp Pulse Resp B/P (MAP) Pulse Ox O2 Delivery O2 Flow Rate FiO2 09/15/17 09:05 97.6 09/15/17 08:15 97.2 96 20 123/68 99 Room Air 09/15/17 04:00 97.6 97 19 133/76 97 Room Air 09/15/17 00:00 97.6 98 20 145/71 96 Room Air 09/14/17 20:00 97.7 104 20 156/76 100 Room Air 09/14/17 15:52 97.6 100 22 126/57 96 Room Air 09/14/17 12:00 97.3 92 20 151/77 97 Room Air Intake and Output 09/15/17 09/16/17 19:00 07:00 Intake Total 240 ml Balance 240 ml Intake Oral 240 ml # Bowel Movements 1 Laboratory Tests 09/14/17 10:30: White Blood Count 5.7, Red Blood Count 4.19L, Hemoglobin 11.2L, Hematocrit 35.8L , Mean Corpuscular Volume 85, Mean Corpuscular Hemoglobin 26.7L, Mean Corpuscular Hemoglobin Concent 31.2L, Red Cell Distribution Width 14.6, Platelet Count 300, Mean Platelet Volume 6.5, Neutrophils (%) (Auto) 68.6, Lymphocytes (%) (Auto) 19.0L, Monocytes (%) (Auto) 5.2, Eosinophils (%) (Auto) 6.2H, Basophils (%) (Auto) 1.1, Sodium Level 141, Potassium Level 3.8, Chloride Level 108H, Carbon Dioxide Level 23, Anion Gap 10, Blood Urea Nitrogen 20H, Creatinine 1.2, Estimat Glomerular Filtration Rate 44.8, Glucose Level 292H, Calcium Level 9.0, Total Bilirubin 0.4, Aspartate Amino Transf (AST/SGOT) 21, Alanine Aminotransferase (ALT/SGPT) 17, Alkaline Phosphatase 95, Total Protein 8.2, Albumin 2.8L, Globulin 5.4, Albumin/Globulin Ratio 0.5L Height (Feet): 5 Height (Inches): 7.00 Weight (Pounds): 133 Objective GENERAL: The patient is a well-developed female, awake, alert, and oriented x4. NECK: Supple. No jugular venous distention. HEART: Regular rate and rhythm. LUNGS: Lungs are clear. ABDOMEN: Soft, nontender, and nondistended. EXTREMITIES: No clubbing, cyanosis, or edema. The patient has left-sided hemiparesis that is old. KORTNEY DODGE Sep 15, 2017 10:03
[2017-09-15 12:15] VITALS: BP 116/64
[2017-09-15 16:04] VITALS: BP 121/75
[2017-09-15 19:59] VITALS: BP 131/70
[2017-09-15] MEDS: Atorvastatin 80mg tab ORAL SCH (20:39)
[2017-09-15] MEDS: Vancomycin 1gm in D5W 275ml IVPB SCH (23:37)
[2017-09-16] VITALS: BP 124/55
[2017-09-16 04:00] VITALS: BP 127/62
[2017-09-16] MEDS: NovoLOG Insulin Flexpen SUBQ SCH ×2 (06:20→11:30)
[2017-09-16 08:00] VITALS: BP 150/67
[2017-09-16] MEDS ORDERED: NITROFURANTOIN100 M2 ORAL (08:11)
[2017-09-16] MEDS: Docusate 100mg cap ORAL SCH (09:27)
[2017-09-16] MEDS: Lyrica 25mg cap ORAL SCH ×2 (09:33→12:52)
[2017-09-16] MEDS: Aspirin EC 81mg tab ORAL SCH (09:34)
[2017-09-16] MEDS: Heparin 5000 units/ml inj SUBQ SCH (09:36)
[2017-09-16] MEDS: Levemir Flexpen SUBQ SCH (09:38)
[2017-09-16] MEDS: Cefepime HCl 1 GM in D5W 55 ML IVPB SCH (10:43)
[2017-09-16 12:00] VITALS: BP 108/51
[2017-09-16] MEDS ORDERED: Tubing IV Secondary IV ONE (13:46)
[2017-09-16] MEDS ORDERED: Meropenem 500 MG in NS 55 ML IVPB SCH (15:30)
--- NOTE | 2017-09-16 17:15 | Consultation ---
DATE OF CONSULTATION: 09/16/2017 INFECTIOUS DISEASES CONSULTATION CONSULTING PHYSICIAN: Nilesh Hannon M.D. REFERRING PHYSICIAN: Francis Jones M.D. REASON FOR CONSULTATION: Urinary tract infection. HISTORY OF PRESENTING ILLNESS: This is a 67-year-old lady with history of diabetes, hypertension, and CVA, who came in from a long term facility after she was found to be poorly responsive. She was found to have a urinary tract infection and an Infectious Diseases consultation has been obtained for antibiotics. PAST MEDICAL HISTORY: 1. History of diabetes. 2. Hypertension. 3. CVA. MEDICATIONS: As an inpatient, the patient is on Ativan, atorvastatin, Remeron, Lotrimin, aspirin, docusate, ferrous sulfate, Lyrica, insulin, Seroquel, cefepime, subcutaneous heparin, intravenous vancomycin, Tylenol, Dulcolax, and milk of magnesia. ALLERGIES: The patient is allergic to penicillin. SOCIAL HISTORY: No history of smoking, alcohol, or drug use. FAMILY HISTORY: Unknown. REVIEW OF SYSTEMS: Unable to obtain currently. PHYSICAL EXAMINATION: VITAL SIGNS: Temperature of 97.2, T-max of 97.7, pulse of 100, respiratory rate 20, blood pressure 150/67, and O2 saturation of 98%. HEENT: Pupils equally reactive to light and accommodation. Mouth appears clean without thrush. NECK: Supple. No adenopathy. No JVD. CARDIOVASCULAR: Regular rate and rhythm. No murmurs. LUNGS: Clear to auscultation bilaterally. No crackles. No wheezes. ABDOMEN: Soft and nontender. No organomegaly. EXTREMITIES: No cyanosis, no clubbing, no edema. LABORATORY DATA: White count 5.7, hemoglobin 11.2, hematocrit 35.8, MCV 85, and platelet count of 300,000 with neutrophils of 68%. Sodium 141, potassium 3.8, chloride 108, bicarb 23, BUN 20, creatinine 1.2, glucose 292, and calcium 9. Total bilirubin 0.4. AST 21, ALT 17, and alkaline phosphatase 95. Total protein 8.2. Albumin 2.8. UA showing 40 to 60 white cells. Urine culture is growing ESBL E. coli which is susceptible to ertapenem, imipenem, piperacillin, and tazobactam. Wound culture is growing methicillin-resistant Staphylococcus aureus and group B Streptococcus. Nasal swab was positive for MRSA. Rectal swab was positive for VRE. Chest x-ray was unremarkable. 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 ASSESSMENT: 1. This is a 67-year-old lady with history of diabetes,hypertension, and stroke, who comes in and is found to have an extended-spectrum beta-lactamase Escherichia coli urinary tract infection. 2. Methicillin-resistant Staphylococcus aureus nasal colonization. 3. Rectal vancomycin-resistant enterococcus colonization. PLAN: 1. Discontinue intravenous vancomycin and cefepime. 2. We will start the patient on meropenem. 3. We will follow up cultures and adjust antibiotics accordingly. I would like to thank, Dr. Jones, for this consultation. Nilesh Hannon M.D. DR: ROSCOE JOB#: [id number] CC: Francis Jones M.D.
--- NOTE | 2017-09-16 22:00 | Discharge Summary ---
DATE OF ADMISSION: 09/12/2017 DATE OF DISCHARGE: 09/16/2017 ADMITTING DIAGNOSES: 1. Sepsis. 2. Toxic metabolic encephalopathy. 3. Diabetes, out of control. 4. Hyponatremia. 5. Acute renal failure. 6. History of stroke. DISCHARGE DIAGNOSES: 1. Sepsis. 2. Toxic metabolic encephalopathy. 3. Diabetes, out of control. 4. Hyponatremia. 5. Acute renal failure. 6. History of stroke. HOSPITAL COURSE: The patient is a pleasant female who is admitted with complaints of altered mental status and sepsis. She was diagnosed with UTI. Eventually, culture showed ESBL and recent antibiotics were adjusted. She improved with IV hydration and antibiotic therapy. At discharge, she was doing well. She will be discharged back to the [facility] facility to complete oral antibiotics. Please see discharge medication list for discharge medications. DIET: Cardiac diabetic diet. ACTIVITY: Ad-jaylene. FOLLOWUP: The patient to follow up in one to two days in [facility] facility. Francis Jones M.D. DR: ANNA JOB#: [id number] CC:
--- NOTE | 2017-09-16 22:00 | Discharge Summary ---
DATE OF ADMISSION: 09/12/2017 DATE OF DISCHARGE: 09/16/2017 ADMITTING DIAGNOSES: 1. Sepsis. 2. Toxic metabolic encephalopathy. 3. Diabetes, out of control. 4. Hyponatremia. 5. Acute renal failure. 6. History of stroke. DISCHARGE DIAGNOSES: 1. Sepsis. 2. Toxic metabolic encephalopathy. 3. Diabetes, out of control. 4. Hyponatremia. 5. Acute renal failure. 6. History of stroke. HOSPITAL COURSE: The patient is a pleasant female who is admitted with complaints of altered mental status and sepsis. She was diagnosed with UTI. Eventually, culture showed ESBL and recent antibiotics were adjusted. She improved with IV hydration and antibiotic therapy. At discharge, she was doing well. She [facility] to [facility] oral [facility]. Please see discharge medication list for discharge medications. DIET: Cardiac diabetic diet. ACTIVITY: Ad-jaylene. FOLLOWUP: The patient to follow up in one to two days in [facility]. Francis Jones M.D. DR: ANNA JOB#: [id number] CC:
--- NOTE | 2017-09-16 22:00 | Discharge Summary ---
DATE OF ADMISSION: 09/12/2017 DATE OF DISCHARGE: 09/16/2017 ADMITTING DIAGNOSES: 1. Sepsis. 2. Toxic metabolic encephalopathy. 3. Diabetes, out of control. 4. Hyponatremia. 5. Acute renal failure. 6. History of stroke. DISCHARGE DIAGNOSES: 1. Sepsis. 2. Toxic metabolic encephalopathy. 3. Diabetes, out of control. 4. Hyponatremia. 5. Acute renal failure. 6. History of stroke. HOSPITAL COURSE: The patient is a pleasant female who is admitted with complaints of altered mental status and sepsis. She was diagnosed with UTI. Eventually, culture showed ESBL and recent antibiotics were adjusted. She improved with IV hydration and antibiotic therapy. At discharge, she was doing well. She will be discharged back to the [facility] facility to complete oral antibiotics. Please see discharge medication list for discharge medications. DIET: Cardiac diabetic diet. ACTIVITY: Ad-jaylene. FOLLOWUP: The patient to follow up in one to two days in [facility] facility. Francis Jones M.D. DR: ANNA JOB#: [id number] CC:
== END 2017-09-16 13:47 | DRG 871 ==
LOC: EDBD 18:25 → EMR 20:27 → ENRESERV 22:05 → EDBEDREQ 22:06 → 4E 22:22
DX: A41.9 Sepsis, unspecified organism (principal); G92 Toxic encephalopathy; N17.9 Acute kidney failure, unspecified; L89.153 Pressure ulcer of sacral region, stage 3; R13.10 Dysphagia, unspecified; E87.1 Hypo-osmolality and hyponatremia; E11.65 Type 2 diabetes mellitus with hyperglycemia; N39.0 Urinary tract infection, site not specified; B96.20 Unspecified Escherichia coli [E. coli] as the cause of diseases classified elsewhere; I10 Essential (primary) hypertension; Z86.73 Personal history of transient ischemic attack (TIA), and cerebral infarction without residual deficits; J44.9 Chronic obstructive pulmonary disease, unspecified; Z22.322 Carrier or suspected carrier of Methicillin resistant Staphylococcus aureus; I25.2 Old myocardial infarction
CPT/HCPCS: 36415; 70450; 71010; 80053; 80202; 80307; 80329; 81003; 82140; 82962; 83605; 84484; 85025; 87070; 87081; 87086; 87181; 87205; 93005; 99285; J1815; S5561

== ENCOUNTER 2019-01-06 07:05 | Inpatient (IN) | payer MEDICARE, OTHER ==
[2019-01-06] VITALS (10 sets, daily range): BP systolic 66–138; BP diastolic 29–101
[~2019-01-06] VITALS: Ht 162.6 cm; Wt 59.0 kg
[~2019-01-06 07:05] MED LIST changes: +NITROFURANTOIN100 M2 ORAL
[2019-01-06] MEDS ORDERED: Vancomycin 1 GM in NS 275 ML IV ONE (07:15)
--- NOTE | 2019-01-06 07:15 | NUR ---
ED Nurse Note: Dr Jones at the bed side.
--- NOTE | 2019-01-06 07:17 | Emergency Room Report ---
History of Present Illness General Chief Complaint: Dyspnea/Respdistress Source: Patient, EMS Present Illness HPI A 68-year-old female sent in by EMS after increased difficulty breathing. Patient was noted to have prior history of urinary tract infection is currently be treated with antibiotics. Patient was noted to have increased chest discomfort and difficulty breathing. Patient prior history of [place]. She was noted to have some residual weakness from prior CVA. Patient was sent in [facility].Patient was noted to have a fairly resistant organism and was currently being treated with gentamicin. Allergies: Coded Allergies: PENICILLINS (Verified Allergy, Unknown, 03/18/17) Patient History Past Medical History: see triage record Reviewed Nursing Documentation: PMH: Agreed; PSxH: Agreed Nursing Documentation-PMH Past Medical History: No History, Except For Hx Cardiac Problems: Yes Hx Hypertension: Yes Hx Diabetes: Yes - Type 2 Hx Cancer: No Hx Gastrointestinal Problems: No Hx Neurological Problems: Yes Hx Cerebrovascular Accident: Yes Hx Dementia: Yes Hx Amyotrophic Lat Sclerosis: Yes Hx Memory Loss: Yes Hx Weakness: Yes Hx Fatigue: Yes Review of Systems All Other Systems: limited - by poor historian Physical Exam Vital Signs Date Time Temp Pulse Resp B/P (MAP) Pulse Ox O2 Delivery O2 Flow Rate FiO2 01/06/19 07:08 99.9 108 24 136/101 90 Non-Rebreather 15.0 General Appearance: alert, moderate distress, Chronically Ill Head: normocephalic Respiratory: wheezing Cardiovascular #1: no edema, tachycardia - 135 Gastrointestinal: normal inspection, soft Musculoskeletal: decreased range of motion Neurologic: alert, responsive, motor weakness - left upper extremity Psychiatric: anxious Skin: normal inspection, no rash Procedures Critical Care Time Critical Care Time Patient had a critical medical condition which untreated could potentially result in life or limb threatening injury. Total critical care time excluding procedures approximately 45 minutes. Medical Decision Making Diagnostic Impression: Primary Impression: Sepsis Additional Impressions: UTI (urinary tract infection) Non-STEMI (non-ST elevated myocardial infarction) Pleural effusion Metabolic acidosis ER Course Patient presented for shortness of breath. Differential included but was not limited to anemia, pneumonia, pneumothorax, myocardial infarction, pericardial effusion, congestive heart failure, acidosis. Because of complexity of patient' s case laboratory testing and imaging studies were ordered. EKG interpreted by me showed sinus tachycardia with a rate of 135 with inferior Q waves noted patient was started on IV fluids. She was noted to have some prior history of urinary infection.Blood cultures were obtained and patient was started on antibiotics.Was noted to have markedly elevated troponin consistent with recent myocardial injury patient was noted also to have some metabolic acidosis. Patient was noted to have he some continued difficulty breathing was started on BiPAP.Urinalysis showed evidence of continued urinary infection. Dr. Francis Jones was contacted for inpatient management due to primary care physicianPatient was noted to have a pretty sizable sizable left-sided pleural effusion with left lung field obscured. Per patient's POLST patient is not to be resuscitated. Labs Test 01/06/19 07:40 01/06/19 07:55 White Blood Count 32.8 K/UL (4.8-10.8) Red Blood Count 3.81 M/UL (4.20-5.40) Hemoglobin 9.6 G/DL (12.0-16.0) Hematocrit 31.2 % (37.0-47.0) Mean Corpuscular Volume 82 FL (80-99) Mean Corpuscular Hemoglobin 25.1 PG (27.0-31.0) Mean Corpuscular Hemoglobin Concent 30.7 G/DL (32.0-36.0) Red Cell Distribution Width 14.2 % (11.6-14.8) Platelet Count 719 K/UL (150-450) Mean Platelet Volume 5.0 FL (6.5-10.1) Neutrophils (%) (Auto) % (45.0-75.0) Lymphocytes (%) (Auto) % (20.0-45.0) Monocytes (%) (Auto) % (1.0-10.0) Eosinophils (%) (Auto) % (0.0-3.0) Basophils (%) (Auto) % (0.0-2.0) Sodium Level 135 MMOL/L (136-145) Potassium Level 4.9 MMOL/L (3.5-5.1) Chloride Level 101 MMOL/L (98-107) Carbon Dioxide Level 17 MMOL/L (21-32) Anion Gap 17 mmol/L (5-15) Blood Urea Nitrogen 53 mg/dL (7-18) Creatinine 3.4 MG/DL (0.55-1.30) Estimat Glomerular Filtration Rate 13.4 mL/min (>60) Glucose Level 363 MG/DL (74-106) Calcium Level 9.2 MG/DL (8.5-10.1) EKG Diagnostic Results Rate: tachycardiac Rhythm: NSR ST Segments: no acute changes Last Vital Signs Date Time Temp Pulse Resp B/P (MAP) Pulse Ox O2 Delivery O2 Flow Rate FiO2 01/06/19 07:08 99.9 108 24 136/101 90 Non-Rebreather 15.0 Status: unchanged Disposition: ADMITTED INPATIENT Condition: Serious Krzysztof Hanna MD Jan 06, 2019 07:17
[2019-01-06] MEDS ORDERED: RENAL CAPS SOFTG1 MG PO (07:18)
[2019-01-06] MEDS ORDERED: ASCORBIC ACID500 MG ORAL (07:18)
[2019-01-06] MEDS ORDERED: TRAMADOL HCL50 MG ORAL (07:18)
--- NOTE | 2019-01-06 07:18 | NUR ---
ED Nurse Note: Pt brought in by ambulance from [facility] due to chest pain and dyspnea 1 hour prior ED arrival. Noted pt to be restless and yelling. Pt is AAO x3, follows commands, SOB at rest. No JVD. Noted left arm weakness and bilateral leg contractures. Also noted wounds on sacrum and left buttock.
[2019-01-06] MEDS ORDERED: Albuterol/Ipratropium 3ml neb HHN ONE (07:30)
[2019-01-06] MEDS ORDERED: LORazepam Inj 2mg/ml 1ml IV ONE (07:30)
--- NOTE | 2019-01-06 07:49 | NUR ---
ED Nurse Note: Blood and flu swab sent.
[2019-01-06 08:01] LABS: HEMATOCRIT 31.2 % (37.0-47.0); HEMOGLOBIN 9.6 G/DL (12.0-16.0); MEAN CORPUSCULAR VOLUME 82 FL (80-99); PLATELET COUNT 719 K/UL (150-450); RED BLOOD COUNT 3.81 M/UL (4.20-5.40); RED CELL DISTRIBUTION WIDTH 14.2 % (11.6-14.8)
[2019-01-06 08:07] LABS: WHITE BLOOD COUNT 32.8 K/UL (4.8-10.8)
--- NOTE | 2019-01-06 08:07 | NUR ---
ED Nurse Note: Urine and MRSA/VRE/CRE swabs.
[2019-01-06 08:10] LABS: ANION GAP 17 mmol/L (5-15); BLOOD UREA NITROGEN 53 mg/dL (7-18); CALCIUM 9.2 MG/DL (8.5-10.1); CARBON DIOXIDE 17 MMOL/L (21-32); CHLORIDE 101 MMOL/L (98-107); CREATININE 3.4 MG/DL (0.55-1.30); POTASSIUM 4.9 MMOL/L (3.5-5.1); SODIUM 135 MMOL/L (136-145)
[2019-01-06] MEDS ORDERED: Insulin Human Regular 100units/ml 3ml IV ONE (08:15)
--- NOTE | 2019-01-06 08:15 | NUR ---
ED Nurse Note: Bipap placed on pt. Side rails up x 2, bed in lowest locked position. Blankets provided.
[2019-01-06 08:18] LABS: APPEARANCE,URINE VERY CLOUDY; BILIRUBIN, URINE 1+ (NEGATIVE); COLOR,URINE BROWN; GLUCOSE, URINE (UA) NEGATIVE (NEGATIVE); KETONES,URINE NEGATIVE (NEGATIVE); LEUKOCYTE ESTERASE ,URINE 3+ (NEGATIVE); NITRITE,URINE POSITIVE (NEGATIVE); PH,URINE 5 (4.5-8.0); PROTEIN,URINE 2+ (NEGATIVE); UROBILINOGEN,URINE 4 MG/DL (0.0-1.0)
[2019-01-06 08:22] LABS: ALANINE AMINOTRANSFERASE 39 U/L (12-78); ALBUMIN 1.8 G/DL (3.4-5.0); ALBUMIN/GLOBULIN RATIO 0.3 (1.0-2.7); ALKALINE PHOSPHATASE 117 U/L (46-116); ASPARTATE AMINO TRANSFERASE 121 U/L (15-37); BILIRUBIN,TOTAL 0.4 MG/DL (0.2-1.0); CKMB 47.3 NG/ML (0.0-3.6); CREATINE KINASE 885 U/L (26-308); PHOSPHORUS 6.1 MG/DL (2.5-4.9)
[2019-01-06] MEDS ORDERED: Pantoprazole Inj IVP ONE (08:30)
--- NOTE | 2019-01-06 08:35 | Diagnostic Imaging Report ---
Indication: Shortness of breath Technique: One view of the chest Comparison: 09/12/2017 Findings: There is complete opacification of left hemithorax. The mediastinum is not shifted. The right lung and pleural space are clear. Impression: Completely opacified left hemithorax. This may indicate massive pleural effusion, completely atelectatic left lung, or combination of both. Findings discussed by phone with Dr. Hanna in the emergency room
--- NOTE | 2019-01-06 08:52 | NUR ---
ED Nurse Note: Pt is very restless and irritable. Noted to be pulling out her Bipap mask and tubing. Dr Hanna notified. No new orders given.
[2019-01-06] MEDS ORDERED: LORazepam 0.5mg tab ORAL PRN (09:30)
--- NOTE | 2019-01-06 09:51 | NUR ---
ED Nurse Note: Repeat lactic acid specimen sent.
--- NOTE | 2019-01-06 09:53 | NUR ---
ED Nurse Note: Called RT for ABG.
--- NOTE | 2019-01-06 10:00 | NUR ---
ED Nurse Note: 2D- Echo done at the bed side.
--- NOTE | 2019-01-06 10:13 | NUR ---
ED Nurse Note: RT at the bed side for ABG.
--- NOTE | 2019-01-06 10:40 | NUR ---
ED Nurse Note: Pt keeps moving and yelling. Still on sinus tach but sats 100 % in room air.
--- NOTE | 2019-01-06 10:50 | NUR ---
Note jante in EDM - 01/06/19 at 1335 by KAMINI ED Nurse Note: Pt still keeps pulling out tubing from Bipap and very restless. Tried to orient to reality and purpose of Bipap but pt unable to comprehend at this time. Dr Hanna notified.
--- NOTE | 2019-01-06 12:03 | NUR ---
ED Nurse Note: Report given to Tomas Valentin of [facility].
--- NOTE | 2019-01-06 12:18 | NUR ---
ED Nurse Note: ROOM NOT CLEANED YET PER RUT DIAZ RN. EVS CALLED AND NOTIFIED OF NEED FOR CLEANING.
--- NOTE | 2019-01-06 13:40 | NUR ---
NURSE NOTES: RECEIVED NEW A ADMISSION 68 YRS FOLD FEMALE VIA GURNEY ESCORTED BY [facility] AND REPORT RECEIVED BY TRACY ETCHER AIRCRA[employer] OF ED.PT ADMITTED WITH DX OF CP,SOB.PT PLACED ON BIPAP BY RT PER M.D ORDERS.PT HR [address] ST NOTED ON SECURITY SYSTEM ANALYST.PT SAT 98% .PT VERY RESTLESS,RENDERED TOTAL NSG CARE.PT INCONT OF B.B AND URINE.FULL BODY ASSESSMENT DONE.PLACED A TELEPHONE CALL TO DR DODGE AND MADE AWARE REGARDING NEW ORDERS.MLucaD STATING THAT HE IS PLACING ORDERS .ALL NEW ADMISSIONS ORDERS NOTE AND CARRIED OUT.PT WITH [facility] ON LT HIP AND SACRAL AREA M.D MADE AWARE AND NOTIFIED.M.D ORDER WOUND CONSULT WITH DR DIAZ.WILL CONT TO MONITOR.
[2019-01-06] MEDS ORDERED: CEFEPIME HCL IVPB SCH (15:00)
[2019-01-06] MEDS ORDERED: D5W IVPB SCH (15:00)
--- NOTE | 2019-01-06 15:15 | History and Physical Report ---
DATE OF ADMISSION: 01/06/2019 CHIEF COMPLAINT: Acute [place], sepsis and shock, respiratory failure. HISTORY OF PRESENT ILLNESS: The patient is a 63-year-old female. She has a history of stroke with hemiparesis, hypertension, and diabetes. She was transferred from a alf facility with complaints of chest pain. On evaluation in the emergency room, the patient was tachycardic with heart rate of 102. Her chest x-ray showed complete whiteout of the left lung. She also had a troponin of 28 and lactic acid level of 5. The patient has been placed on BiPAP. She has been given aspirin and is now admitted for further evaluation and care. PAST MEDICAL HISTORY: As above. PAST SURGICAL HISTORY: None. CURRENT MEDICATIONS: Reconciled and reviewed. ALLERGIES: Include penicillin. FAMILY HISTORY: Noncontributory. SOCIAL HISTORY: There is no known history of tobacco, ethanol, or drugs. REVIEW OF SYSTEMS: GENERAL: No fevers or chills. HEENT: No headaches or visual changes. CARDIOPULMONARY: Chest pain and shortness of breath. GASTROINTESTINAL: No nausea or vomiting. GENITOURINARY: No urgency or frequency. MUSCULOSKELETAL: No joint pain or swelling. NEUROLOGIC: No history of seizures. PHYSICAL EXAMINATION: VITAL SIGNS: Temperature 98, pulse 146, respirations 30, and blood pressure 103/86. GENERAL: The patient is well developed, in no apparent distress. HEART: Regular rate and rhythm, but tachycardic. LUNGS: Clear except for diminished breath sounds on the left. ABDOMEN: Soft, nontender, and nondistended. EXTREMITIES: Without clubbing or cyanosis. The patient has left-sided hemiparesis. LABORATORY DATA: Sodium 135, potassium 4.9, bicarb 17, BUN 53, and creatinine 3.4. Lactic acid was 5.7. Magnesium 2.5. Troponin 28. Natriuretic peptide level was 3300. White count was 32,000. Urine showed too numerous to count wbc's. ASSESSMENT: This is an unfortunate female admitted with complaints of acute myocardial infarction, sepsis, possible pneumonia with whiteout of the left lung, supraventricular tachycardia, diabetes, acute on chronic renal failure, and history of stroke. PLAN: 1. Antiplatelet therapy. 2. Beta-blockade. 3. Cautious hydration. 4. Broad-spectrum IV antibiotics. 5. ID, Cardiology, Pulmonary and Infectious Disease consultations will be obtained. 6. The patient has advanced directives for Do Not Resuscitate and she only wants conservative treatment. Francis Jones M.D. DR: MICHAEL JOB#: [id number] CC:
[2019-01-06] MEDS: Metoprolol 25mg tab ORAL SCH ×2 (15:27→21:00)
--- NOTE | 2019-01-06 16:33 | Pre-Procedure Note/Attestation ---
Pre-Procedure Note/Attestation Complete Prior to Procedure Planned Procedure: left Procedure Narrative: thoracentesis Indications for Procedure Pre-Operative Diagnosis: pleural effusion Attestation I attest that I discussed the nature of the procedure; its benefits; risks and complications; and alternatives (and the risks and benefits of such alternatives ), prior to the procedure, with the patient (or the patient's legal call center representative). I attest that, if there was a reasonable possibility of needing a blood transfusion, the patient (or the patient's legal call center representative) was given the [facility] standardized written summary, pursuant to the Fuad Yoly Blood Safety Act ([place] Health and Safety Code # 1645, as amended). I attest that I re-evaluated the patient just prior to the surgery and that there has been no change in the patient's H&P, except as documented below: Solo Alvarez MD Jan 06, 2019 16:33
--- NOTE | 2019-01-06 17:21 | Brief Operative Note ---
Immediate Post Operative Note Operative Note Pre-op Diagnosis: pleural effusion Procedure: thoracentesis Post-op Diagnosis: same as pre-op Specimen: yes - yellow fluid sent to lab Complications: none Fluids: none Implant(s) used?: No Solo Alvarez MD Jan 06, 2019 17:21
--- NOTE | 2019-01-06 17:29 | Diagnostic Imaging Report ---
Indication: Status post thoracentesis Technique: One view of the chest Comparison: 10 hours earlier Findings: There is persistent complete opacification of left hemithorax, despite recent thoracentesis. No pneumothorax demonstrated. There is equivocal minimal interstitial congestive changes in the right lung. No focal airspace consolidation. No effusions Impression: Persistent complete opacification of the left hemithorax, despite recent thoracentesis. Dr. Jones was notified at the time of interpretation No radiographically evident complication
--- NOTE | 2019-01-06 17:30 | Diagnostic Imaging Report ---
Indications: Pleural effusion Technique: Ultrasound used to localize optimal puncture site. Sterile prepping and draping left chest. Local anesthesia with 1% lidocaine. Under real-time ultrasound guidance, puncture pleural space using thoracentesis needle. Stylet removed. Catheter placed to vacuum bottle suction. Total 500 milliliters of fluid aspirated. Patient tolerated procedure well, without immediate complication. Findings: Followup sonography demonstrates considerable residual pleural fluid Impression: Successful incompletely ultrasound-guided thoracentesis, yielding 500 milliliters of fluid, reason for incomplete evacuation uncertain. Recommend reattempt in the morning. Dr. Jones aware
[2019-01-06] MEDS ORDERED: Docusate 100mg cap ORAL SCH (18:00)
--- NOTE | 2019-01-06 19:20 | NUR ---
HAND-OFF: Report given to .BRENDON TUBBS.
--- NOTE | 2019-01-06 20:00 | NUR ---
NURSE NOTES: Received patient from Ali RN. Patient is not alert and oriented. Patients is on BIPAP 15/5, 100%, with agonal type of breathing. Not responding to stimulus. But opens eyes slightly. Patient has a right wrist 20G TKO. Patient is s/p thoracentesis earlier today.
[2019-01-06] MEDS: Atorvastatin 80mg tab ORAL SCH (21:00)
--- NOTE | 2019-01-06 21:00 | NUR ---
NURSE NOTES: Patient not able to tolerate PO meds at this time. Will dispose PO meds accordingly in the Rx destroyer.
--- NOTE | 2019-01-06 21:14 | Consultation ---
Consult Note Consult Note CHIEF COMPLAINT: respiratory failure. 68-year-old unfortunate female with stroke with focal hemiparesis, hypertension , and diabetes. [facility] with complaints of chest pain and respiratory distress. Patient was placed on bipap and noted to be tachypneic, tachycardic with heart rate over 140s. Her chest x-ray showed complete whiteout of the left lung and she underwent tap. She also had a troponin of 28 and lactic acid level of 5. The patient has been placed on BiPAP and moaning and agitated. Patient has a POLST which was signed with DNR and no aggressive measures care noted and discussed PAST MEDICAL HISTORY: CVA, htn, diabetes PAST SURGICAL HISTORY: None. CURRENT MEDICATIONS: Reconciled and reviewed. ALLERGIES: reviewed FAMILY HISTORY: not available SOCIAL HISTORY: disabled; SNF patient REVIEW OF SYSTEMS: unable PHYSICAL EXAMINATION: acutely ill; seen earlier GENERAL: The patient is well developed, in apparent distress. on BIPAP HEART: Regular rate and rhythm, but tachycardic. without MRG LUNGS: Clear right but reduced breath sounds on the left. ABDOMEN: Soft, nontender, and nondistended. EXTREMITIES: Without clubbing or cyanosis. neuro with left-sided hemiparesis. Labs Test 01/06/19 07:09 01/06/19 07:40 01/06/19 07:55 01/06/19 08:45 Arterial Blood pH 7.340 (7.350-7.450) Arterial Blood Partial Pressure CO2 17.9 mmHg (35.0-45.0) Arterial Blood Partial Pressure O2 88.8 mmHg (75.0-100.0) Arterial Blood HCO3 9.6 mmol/L (22.0-26.0) Arterial Blood Oxygen Saturation 94.9 % (95-100) Arterial Blood Base Excess -14.2 (-2-2) Elia Test Positive White Blood Count 32.8 K/UL (4.8-10.8) Red Blood Count 3.81 M/UL (4.20-5.40) Hemoglobin 9.6 G/DL (12.0-16.0) Hematocrit 31.2 % (37.0-47.0) Mean Corpuscular Volume 82 FL (80-99) Mean Corpuscular Hemoglobin 25.1 PG (27.0-31.0) Mean Corpuscular Hemoglobin Concent 30.7 G/DL (32.0-36.0) Red Cell Distribution Width 14.2 % (11.6-14.8) Platelet Count 719 K/UL (150-450) Mean Platelet Volume 5.0 FL (6.5-10.1) Neutrophils (%) (Auto) % (45.0-75.0) Lymphocytes (%) (Auto) % (20.0-45.0) Monocytes (%) (Auto) % (1.0-10.0) Eosinophils (%) (Auto) % (0.0-3.0) Basophils (%) (Auto) % (0.0-2.0) Differential Total Cells Counted 100 Neutrophils % (Manual) 93 % (45-75) Lymphocytes % (Manual) 3 % (20-45) Monocytes % (Manual) 2 % (1-10) Eosinophils % (Manual) 0 % (0-3) Basophils % (Manual) 0 % (0-2) Band Neutrophils 2 % (0-8) Platelet Estimate Increased Platelet Morphology Normal Anisocytosis 1+ Sodium Level 135 MMOL/L (136-145) Potassium Level 4.9 MMOL/L (3.5-5.1) Chloride Level 101 MMOL/L (98-107) Carbon Dioxide Level 17 MMOL/L (21-32) Anion Gap 17 mmol/L (5-15) Blood Urea Nitrogen 53 mg/dL (7-18) Creatinine 3.4 MG/DL (0.55-1.30) Estimat Glomerular Filtration Rate 13.4 mL/min (>60) Glucose Level 363 MG/DL (74-106) Lactic Acid Level 5.70 mmol/L (0.4-2.0) Calcium Level 9.2 MG/DL (8.5-10.1) Phosphorus Level 6.1 MG/DL (2.5-4.9) Magnesium Level 2.5 MG/DL (1.8-2.4) Total Bilirubin 0.4 MG/DL (0.2-1.0) Aspartate Amino Transf (AST/SGOT) 121 U/L (15-37) Alanine Aminotransferase (ALT/SGPT) 39 U/L (12-78) Alkaline Phosphatase 117 U/L (46-116) Total Creatine Kinase 885 U/L (26-308) Creatine Kinase MB 47.3 NG/ML (0.0-3.6) Creatine Kinase MB Relative Index 5.3 Troponin I 28.375 ng/mL (0.000-0.056) Pro-B-Type Natriuretic Peptide 68412 pg/mL (0-125) Total Protein 8.4 G/DL (6.4-8.2) Albumin 1.8 G/DL (3.4-5.0) Globulin 6.6 g/dL Albumin/Globulin Ratio 0.3 (1.0-2.7) Lipase 115 U/L (73-393) Urine Color Brown Urine Appearance Very cloudy Urine pH 5 (4.5-8.0) Urine Specific Elizabeth 1.025 (1.005-1.035) Urine Protein 2+ (NEGATIVE) Urine Glucose (UA) Negative (NEGATIVE) Urine Ketones Negative (NEGATIVE) Urine Blood 4+ (NEGATIVE) Urine Nitrite Positive (NEGATIVE) Urine Bilirubin 1+ (NEGATIVE) Urine Ictotest Positive (NEGATIVE) Urine Urobilinogen 4 MG/DL (0.0-1.0) Urine Leukocyte Esterase 3+ (NEGATIVE) Urine RBC 5-10 /HPF (0 - 2) Urine WBC Tntc /HPF (0 - 2) Urine Squamous Epithelial Cells Few /LPF (NONE/OCC) Urine Bacteria Many /HPF (NONE) Prothrombin Time 10.6 SEC (9.30-11.50) Prothromb Time International Ratio 1.0 (0.9-1.1) Activated Partial Thromboplast Time 31 SEC (23-33) Test 01/06/19 09:55 01/06/19 17:00 01/06/19 19:45 Lactic Acid Level 10.70 mmol/L (0.66-2.22) 4.10 mmol/L (0.4-2.0) 12.90 mmol/L (0.66-2.22) Troponin I 30.831 ng/mL (0.000-0.056) ASSESSMENT: acute respiratory failure, pleural effusion s/p tap acute myocardial infarction, sepsis, possible pneumonia with whiteout of the left lung, supraventricular tachycardia, diabetes, acute on chronic renal failure, and history of stroke. PLAN patient seen in ER underwent tap still with whiteout prognosis poor antibiotics BIPAP DNR conservative care and management impression, plan, and exam edited and reviewed in detail care discussed with Howard Mcfadden MD Jan 06, 2019 21:14
--- NOTE | 2019-01-06 22:00 | NUR ---
NURSE NOTES: Patient has been noted to he having low BP with systolic readings ranging around 66-84. Patient is tachypneic and shallow. Lung sounds are diminished on left side, Patient is however saturating 89%-95%. HR has been Sinus Armin ranging around 39-50.
--- NOTE | 2019-01-06 23:00 | NUR ---
NURSE NOTES: Patient at 100% FiO2 Bipap 15/5. Hypotensive with systolics around 50s-70s. HR 39-45 SB. Patient demonstrating agonal shallow breathing, Spo2 cannot be obtain.
--- NOTE | 2019-01-06 23:00 | Consultation ---
DATE OF CONSULTATION: 01/06/2019 CARDIOLOGY CONSULTATION CONSULTING PHYSICIAN: William Mckeon M.D. REQUESTING PHYSICIAN: Francis Jones M.D. REASON FOR CONSULTATION: Acute myocardial infarction. HISTORY OF PRESENT ILLNESS: This is a 68-year-old female with cerebrovascular disease, hemiparesis, and debility resides at a residential facility. She was referred to the hospital with tachycardia and hypotension and was noted to have an abnormal chest radiograph in the emergency room revealing white-out of the left lung. She also had a troponin level above 28 and the lactic acid level that mario above 10. I have been asked to assist with further cardiovascular care. Since admission, central access was obtained. The patient was started on hydration, beta-blockade, and aspirin in the emergency room following volume resuscitation. She is also on BiPAP support. PAST MEDICAL HISTORY: 1. Hypertension. 2. Type 2 diabetes mellitus. 3. Cerebrovascular accident with hemiparesis. 4. Dementia. 5. Amyotrophic lateral sclerosis. MEDICATIONS: Medications at the residential facility reviewed and reconciled. ALLERGIES: Penicillin. FAMILY HISTORY: Noncontributory. SOCIAL HISTORY: Negative for smoking, alcohol, or substance abuse. REVIEW OF SYSTEMS: Not obtainable from the patient. Pertinent data from records is outlined above. PHYSICAL EXAM: VITAL SIGNS: Blood pressure 103/86, heart rate 146, respiratory rate 30, and afebrile. HEENT: Temporal wasting. Pale conjunctivae. Oropharynx clear. NECK: Supple. Jugular venous pressure elevated. Accessory muscle use noted. LUNGS: Bilateral rhonchi and wheezes. CARDIAC: Regular rhythm. Rapid rate. Normal S1, S2 with a fourth heart sound. ABDOMEN: Soft and nontender. EXTREMITIES: Without edema. Contractures are noted. Hemiparesis on the left. IMAGING: Chest x-ray, left side whiteout. EKG, sinus tachycardia with nonspecific ST-T wave changes. Laboratories are reviewed. IMPRESSION: 1. Acute myocardial infarction. 2. Sepsis with shock. 3. Respiratory failure. 4. Probable pneumonia. 5. Probable pleural effusion. 6. Paroxysmal supraventricular tachycardia. 7. Secondary sinus tachycardia. 8. Type 2 diabetes mellitus with complications. 9. Acute on chronic renal failure. 10. Cerebrovascular disease with left hemiparesis and cognitive impairment. 11. Lactic acidosis. PLAN: 1. Cardiac monitoring. 2. BiPAP support. 3. Thoracentesis. 4. Anti-platelet therapy with aspirin. 5. Beta-blockade. 6. Statin therapy with lipid panel to be checked. 7. DVT prophylaxis. 8. Maintain adequate hydration. 9. Condition critical. 10. Prognosis guarded. 11. Broad-spectrum antibiotics with respiratory hygiene. William Mckeon M.D. DR: YULIA JOB#: [id number] CC:
--- NOTE | 2019-01-07 | NUR ---
NURSE NOTES: Patient continues to bradycardic, and hypotensive, agonal breathing. Patient cold to touch. FiO2 at 100%.
--- NOTE | 2019-01-07 01:36 | NUR ---
NURSE NOTES: Patient asystolic on the monitor. Verified at bedside and no pulse can be detected.
[2019-01-07] MEDS ORDERED: Tubing IV Secondary IV ONE (01:44)
[2019-01-07] MEDS ORDERED: CEFEPIME ONE (01:44)
[2019-01-07] MEDS ORDERED: NS 275ml ONE (01:44)
--- NOTE | 2019-01-07 01:45 | NUR ---
NURSE NOTES: Patient asystolic. Notified Next of kin about patient.
--- NOTE | 2019-01-07 01:46 | NUR ---
NURSE NOTES: ICU charge nurse pronounce patients time of .
--- NOTE | 2019-01-07 01:46 | NUR ---
PRONOUNCEMENT: No Code. Called to pronounce patient. Absence of spontaneous respirations, no cardiac or breath sounds on auscultation. Pupils fixed and dilated. No carotid pulse or chest movement. Patient at .0146 DR ortega notified PER piter hamilton. Family was notified at 0210.
--- NOTE | 2019-01-07 01:55 | NUR ---
NURSE NOTES: Called and left message to Dr. Jones regarding patients .
--- NOTE | 2019-01-07 02:10 | NUR ---
NURSE NOTES: Notified [facility]. Patient not a candidate per [facility].
--- NOTE | 2019-01-07 02:15 | NUR ---
NURSE NOTES: Notified Randi Orthodontic Technician Assistant.
[2019-01-07] MEDS ORDERED: Aspirin EC 81mg tab ORAL SCH (09:00)
--- NOTE | 2019-01-10 10:08 | Cardiology Report ---
APPROVED REPORT EXAM: Two-dimensional and M-mode echocardiogram with Doppler and color Doppler. INDICATION Congestive Heart Failure M-Mode DIMENSIONS IVSd1.1 (0.7-1.1cm)Left Atrium (MM)3.0 (1.6-4.0cm) LVDd4.8 (3.5-5.6cm)Aortic Root3.1 (2.0-3.7cm) PWd0.9 (0.7-1.1cm)Aortic Cusp Exc.1.6 (1.5-2.0cm) IVSs1.5 cm LVDs3.5 (2.5-4.0cm) PWs1.2 cm Normal left ventricular chamber size. Left ventricular ejection fraction estimated to be 40%. Mild left ventricular hypertrophy by 2-D. Anterior Echo-free space, may be due to pericardial fat or effusion. Large pleural effusion present . All other cardiac chamber sizes are within normal limits. Mild aortic valve sclerosis with adequate cusp excursion. Heavily thickened mitral valve leaflets with normal excursion. Heavily mitral annulus and aortic root calcification. Pulmonic valve not well visualized. IVC dilated at 2.4 cm with slightly physiologic collapse suggestive of increased RA pressure. A color flow and spectral Doppler study was performed and revealed: Mild aortic insufficiency . Mitral inflow velocities indicates possible pseudo normalization pattern implying moderately elevated left atrial pressure (Grade II ). Moderate mitral regurgitation. Mild tricuspid regurgitation. Tricuspid systolic velocities suggests peak right ventricular systolic pressure of 46mmHg,consistent with moderate pulmonary hypertension .
--- NOTE | 2019-01-10 13:42 | Discharge Summary ---
Discharge Summary Discharge Summary _ SUMMARY DATE OF ADMISSION: 01/06/1901 19 DATE OF EXPIRATION: 01/07/2019 REASON FOR ADMISSION: 68 years old female with past medical history of CVA with residual hemiparesis, hypertension, diabetes mellitus, was transferred from the [facility] facility for evaluation of chest pain. Upon evaluation IN emergency department patient was tachycardic ,hypoxic and tachypneic. Patient required initially 100% nonrebreather mask. Workup revealed significant leukocytosis WBC 32.8. Hemoglobin 9.6 AND hematocrit 31.2. Troponin was 28. Lactic acid 5 . ABG revealed severe metabolic acidosis. BUN 53, creatinine 3.4 . glucose 363. Urinalysis revealed evidence of UTI Chest x-ray revealed complete opacification of the left hemithorax ,possibly indicative of massive pleural effusion, complete atelectatic left lung or combination of both. Patient subsequently was sent for ultrasound-guided thoracentesis, which yielded 500 mL of fluid. Patient was placed on the BiPAP Patient with DNR/DNI status per POLST. Patient received aspirin and admitted to ICU for further management CONSULTANTS: physician's assistant DR. Mckeon pulmonary [facility] COURSE: Patient admitted to stepdown unit. Patient was placed on the BiPAP. Antiplatelet therapy ,beta blockage and statin were initiated. Patient was on cautious hydration. Broad-spectrum antibiotics started. ID , cardiology and pulmonology consults were requested. GI prophylaxis provided. Chest x-ray post thoracentesis revealed persistent complete opacification of the left hemithorax, despite recent thoracentesis. No pneumothorax was demonstrated. Repeated troponin 30.8. Echocardiogram revealed ejection fraction of 40% with mild left ventricular hypertrophy. Large pleural effusion was present. Moderately elevated left atrial pressure grade 2. Right ventricular systolic pressure of 46 consistent with moderate pulmonary hypertension Cell Geneticist and physician's assistant seen and and evaluated patient. According to consultants, prognosis was guarded and condition was critical . Recommended conservative care and management given poor prognosis, DNR status and current medical status. Lactic acid continued to be elevated. At the time of this dictation cultures were back Blood culture revealed Staphylococcus aureus. Rapid influenza screen test was negative. Urine culture revealed E. coli ESBL. Unfortunately patient condition was rapidly deteriorating. She was pronounced on 01/07/2019 at 01:46. Cause of : cardiopulmonary arrest due to acute myocardial infarction and sepsis FINAL DIAGNOSES: Acute myocardial infarction Sepsis with Staph aureus bacteremia E coli ESBI UTI Acute respiratory failure Left lung pleural effusion with compete atelectasis Status post ultrasound-guided thoracentesis of left pleural effusion Possible pneumonia Supraventricular tachycardia Acute on chronic renal failure History of CVA Diabetes mellitus I have been assigned to dictate discharge summary for this account. I was not involved in the patient's management. Ros Cain NP Jan 10, 2019 13:42
--- NOTE | 2019-01-12 01:38 | Cardiology Report ---
APPROVED REPORT EKG Measurement Heart [id number] Sinus tachycardia with fusion complexes Low voltage QRS Inferior infarct, age undetermined Anterolateral infarct, age undetermined Abnormal ECG
== END 2019-01-07 01:45 | disposition expired | DRG 871 ==
LOC: EDBD 07:05 → EMR 08:10 → 2W 08:15 → EDBEDREQ 09:08 → EDBEDREQSVC 09:08 → EDBEDREQ 11:25
PROC: 0W9B3ZZ Drainage of Left Pleural Cavity, Percutaneous Approach (ICD-10-PCS; principal; 2019-01-06)
PROC: 5A09357 Assistance with Respiratory Ventilation, Less than 24 Consecutive Hours, Continuous Positive Airway Pressure (ICD-10-PCS; 2019-01-06)
DX: A41.01 Sepsis due to Methicillin susceptible Staphylococcus aureus (principal); I21.9 Acute myocardial infarction, unspecified; J96.00 Acute respiratory failure, unspecified whether with hypoxia or hypercapnia; J18.9 Pneumonia, unspecified organism; R65.21 Severe sepsis with septic shock; N39.0 Urinary tract infection, site not specified; J90 Pleural effusion, not elsewhere classified; J98.11 Atelectasis; I47.1 Supraventricular tachycardia; N17.9 Acute kidney failure, unspecified; G12.21 Amyotrophic lateral sclerosis; I69.354 Hemiplegia and hemiparesis following cerebral infarction affecting left non-dominant side; B96.20 Unspecified Escherichia coli [E. coli] as the cause of diseases classified elsewhere; Z16.12 Extended spectrum beta lactamase (ESBL) resistance; E11.22 Type 2 diabetes mellitus with diabetic chronic kidney disease; N18.9 Chronic kidney disease, unspecified; Z66 Do not resuscitate; Z88.0 Allergy status to penicillin; F03.90 Unspecified dementia, unspecified severity, without behavioral disturbance, psychotic disturbance, mood disturbance, and anxiety; I69.319 Unspecified symptoms and signs involving cognitive functions following cerebral infarction
CPT/HCPCS: 36415; 36600; 71045; 76942; 80053; 81003; 82550; 82553; 82803; 82962; 83605; 83690; 83735; 83880; 84100; 84484; 85007; 85025; 85610; 85730; 86710; 87040; 87081; 87086; 87181; 88104; 93005; 93306; 94640; 94664; 96361; 96365; 96375; 99291; J7620